=== PATIENT | female | born 1955 | race Caucasian/White ===

== ENCOUNTER → 2020-05-07 12:12 | Outpatient (CLI) | payer OTHER, SELFPAY ==
--- NOTE | ~2020-05-07 | DEXA_ITS ---
Bone Density Report Name: Aggie Archer Age: 64 Sex: Female Ethnicity: White Date of : 1955 Indication: postmenopausal; screening for osteoporosis; parental hip fracture; height loss; Referring Provider: MARE, AMANDA Caro Study: Bone densitometry was performed. Exam Date: May 07, 2020 Accession number: [id number] Bone Density: Region BMD T-score Z-score Classification AP Spine (L1-L4) 0.934 -1.0 0.8 Normal Femoral Neck (Left) 0.673 -1.6 0.0 Osteopenia Total Hip (Left) 0.770 -1.4 -0.1 Osteopenia Femoral Neck (Right) 0.747 -0.9 0.7 Normal Total Hip (Right) 0.862 -0.7 0.7 Normal Total Hip Mean 0.816 -1.1 0.3 Osteopenia World Health Organization criteria for BMD impression classify patients as: Normal (T-score at or above -1.0), Osteopenia (T-score between -1.0 and -2.5), or Osteoporosis (T-score at or below -2.5). 10-year Fracture Risk(1): Major Osteoporotic Fracture 14% Hip Fracture 1.3% Reported Risk Factors: [place] (), Neck BMD=0.673, BMI=19.3, parental fracture (1) FRAX(R) Version 3.08. Fracture probability calculated for an untreated patient. Fracture probability may be lower if the patient has received treatment. Clinical Information Provided by Patient: Parent has had a hip fracture Has used the following medications: Vitamin D, Calcium Patient maximum height was 67 Menopause Age: 53 Drinks caffeinated beverages Onset of menses at age 10 Number of children 2 Impression: The patient has low bone mass, based on the Left Femoral Neck T-score. The patient has an estimated ten-year risk of hip fracture of 1.3% and an estimated ten-year risk of major fracture of 14%, based on the WHO FRAX algorithm. The patient has risk factors, including: parental hip fracture. Discussion: BONE DENSITY IS LOW AT ONE OR MORE SKELETAL SITES. This patient's lowest T-score is low at one or more skeletal sites. It meets the World Health Organization's (WHO) criteria for ?low bone mass? (T-score between -1.0 and -2.5). The patient's 10-year risk of fracture as calculated by FRAX is less than the threshold where pharmacological therapy is recommended by the National Osteoporosis Foundation (NOF). However, all treatment decisions require clinical judgment and consideration of individual patient factors, including patient preferences, comorbidities, previous drug use, risk factors not captured in the FRAX model (e.g., frailty, falls, vitamin D deficiency, increased bone turnover, interval significant decline in bone density) and possible under or overestimation of fracture risk by FRAX. The patient should follow a healthful lifestyle (good nutrition with adequate calcium and vitamin D, and appropriate weight-bearing exercise). Follow-Up: Consider repeating this study in 2 to 3 years to reassess
== END ==
PROVIDERS: PCP Family Medicine; Visit Provider Family Medicine
DX: Z78.0 Asymptomatic menopausal state (principal); M85.852 Other specified disorders of bone density and structure, left thigh; M85.851 Other specified disorders of bone density and structure, right thigh
CPT/HCPCS: 77080

== ENCOUNTER → 2020-09-27 12:22 | Outpatient (CLI) | payer MEDICARE, SELFPAY ==
--- NOTE | ~2020-09-27 | MM_ITS ---
EXAMINATION: MM screening kristy BI w nupur HISTORY: Screening TECHNIQUE: Craniocaudal and mediolateral oblique 3-D tomosynthesis images were obtained and synthetic 2-D images were generated. CAD analysis was submitted and interpreted. COMPARISON: No prior mammogram is available for comparison at this institution. BREAST PARENCHYMAL COMPOSITION: The breasts are extremely dense, which lowers the sensitivity of mamm ography. FINDINGS: There is no evidence of suspicious mass, calcification, or architectural distortion to sugg est malignancy in either breast. There has been no suspicious interval change. IMPRESSION: 1. No mammographic evidence of malignancy. 2. Recommend routine screening mammography in one year. BI-RADS Category 1: Negative Reviewed, dictated and finalized at location A. IC SOURCER
== END ==
PROVIDERS: PCP Family Medicine; Visit Provider Family Medicine
DX: Z12.31 Encounter for screening mammogram for malignant neoplasm of breast (principal)
CPT/HCPCS: 77063; 77067

== ENCOUNTER → 2021-09-30 11:22 | Outpatient (CLI) | payer MEDICARE, SELFPAY ==
--- NOTE | ~2021-09-30 | MM_ITS ---
EXAMINATION: MM screening kristy BI w nupur HISTORY: Screening mammogram TECHNIQUE: Craniocaudal and mediolateral oblique 3-D tomosynthesis images were obtained and synthetic 2-D images were generated. CAD analysis was submitted and interpreted. COMPARISON: 09/27/2020 BREAST PARENCHYMAL COMPOSITION: The breasts are extremely dense, which lowers the sensitivity of mamm ography. FINDINGS: There is no evidence of suspicious mass, calcification, or architectural distortion to sugg est malignancy in either breast. There has been no suspicious interval change. IMPRESSION: 1. No mammographic evidence of malignancy. 2. Recommend routine screening mammography in one year. BI-RADS Category 1: Negative Reviewed, dictated and finalized at location A. SMITH APPRENTICE
== END ==
PROVIDERS: PCP Family Medicine; Visit Provider Family Medicine
DX: Z12.31 Encounter for screening mammogram for malignant neoplasm of breast (principal)
CPT/HCPCS: 77063; 77067

== ENCOUNTER → 2022-12-16 13:28 | Outpatient (CLI) | payer MEDICARE, SELFPAY ==
--- NOTE | ~2022-12-16 | MM_ITS ---
EXAMINATION: MM screening kristy BI w nupur HISTORY: Screening mammogram TECHNIQUE: Craniocaudal and mediolateral oblique 3-D tomosynthesis images were obtained and synthetic 2-D images were generated. CAD analysis was submitted and interpreted. COMPARISON: 10/17/2021, 09/27/2020 bilateral screening mammogram examinations BREAST PARENCHYMAL COMPOSITION: The breasts are extremely dense, which lowers the sensitivity of mamm ography. FINDINGS: Multiple microcalcifications are noted in the posterior upper left breast on MLO view. Diag nostic left mammogram with magnification views is recommended. Suggestion of multiple bilateral breast masses. The extremely dense tissue limits evaluation for mass es. Bilateral complete breast ultrasound examination is recommended. IMPRESSION: 1. Multiple bilateral breast masses are suggested. Microcalcifications in the posterior upper left br east on MLO view. 2. Diagnostic left mammogram with magnification views and bilateral complete breast ultrasound examin ation are recommended BI-RADS Category 0: Incomplete: Needs additional imaging evaluation. Reviewed, dictated and finalized at location A. MING COACH IMPRESSION: 1. Multiple bilateral breast masses are suggested. Microcalcifications in the p osterior upper left breast on MLO view. 2. Diagnostic left mammogram with magnification views and bilateral complete br east ultrasound examination are recommended BI-RADS Category 0: Incomplete: Needs additional imaging evaluation.
== END ==
PROVIDERS: PCP Family Medicine; Visit Provider Family Medicine
DX: Z12.31 Encounter for screening mammogram for malignant neoplasm of breast (principal); R92.8 Other abnormal and inconclusive findings on diagnostic imaging of breast
CPT/HCPCS: 77063; 77067

== ENCOUNTER → 2023-02-12 08:42 | Outpatient (CLI) | payer MEDICARE, SELFPAY ==
--- NOTE | ~2023-02-12 | MMUS_ITS ---
EXAMINATION: MM diagnostic kristy LT w nupur, US breast BI complete HISTORY: Multiple bilateral breast masses suggested on December 16, 2022 screening mammogram, in mark tion to microcalcifications in the posterior upper left breast on MLO view TECHNIQUE: Additional 3-D tomosynthesis images of the left breast were performed and synthetic 2-D im ages were generated. Magnification views of left breast CAD analysis was submitted and interpreted. H igh resolution breast ultrasound was performed. COMPARISON: None FINDINGS: MAMMOGRAPHIC FINDINGS: There are suspicious pleomorphic grouped microcalcifications including suspicious linear microcalcifi cations in the posterior upper outer quadrant. Stereotactic biopsy is recommended. ULTRASOUND: There is dense tissue throughout both breasts. No suspicious mass or shadowing is detected in either breast. IMPRESSION: 1. Suspicious pleomorphic grouped microcalcifications in the posterior upper outer quadrant 2. Stereotactic biopsy of posterior upper outer quadrant left breast microcalcifications is recommend ed BI-RADS category 4, suspicious findings. Reviewed, dictated and finalized at location A. IMPRESSION: 1. Suspicious pleomorphic grouped microcalcifications in the posterior upper ou ter quadrant 2. Stereotactic biopsy of posterior upper outer quadrant left breast microcalci fications is recommended BI-RADS category 4, suspicious findings.
== END ==
PROVIDERS: PCP Family Medicine; Visit Provider Family Medicine
DX: R92.8 Other abnormal and inconclusive findings on diagnostic imaging of breast (principal)
CPT/HCPCS: 76641; 77061; 77065; G0279

== ENCOUNTER 2023-04-02 12:33 | Outpatient (CLI) | payer MEDICARE, SELFPAY ==
--- NOTE | ~2023-04-02 | MM_ITS ---
EXAMINATION: MM_[id number]_MG INDICATION: Indeterminate left breast calcifications in the axillary tail of the breast in the area d ifficult to biopsy. TECHNIQUE: The procedure for a ultrasound-guided Magseed localization was discussed with the patient. Risks discussed included bleeding and infection. The patient verbalized understanding and agreed to proceed. A time out was performed to verify the patient's name, date of , and site of procedure. The edgardo ent was placed in craniocaudal compression, and the skin overlying the left breast was prepared in us ual fashion. The skin and subcutaneous soft tissues were infiltrated with 1% lidocaine for local anes thesia. Utilizing mammography guidance, a needle was advanced into the left breast. Two confirmatory films were obtained. The patient tolerated procedure without immediate complication. FINDINGS: Ultrasound and mammographic images demonstrate deployment of the Magseed device immediately posterior to indeterminate calcifications. IMPRESSION: 1. Successful ultrasound-guided left breast Magseed localization. Reviewed, dictated and finalized at location A.
--- NOTE | ~2023-04-02 | US_ITS ---
EXAMINATION: Consultation US HISTORY: Indeterminate left breast calcifications. Ultrasound is performed to assess for possible bio psy target given their location in the axillary tail. TECHNIQUE: Limited left breast ultrasound is performed. FINDINGS: No sonographic correlate is identified for the indeterminate left breast calcifications see n at mammography. IMPRESSION: No specific sonographic correlate is identified for the finding in question on recent mammogram. Biop sy remains indicated. BI-RADS category 4, suspicious findings. Reviewed, dictated and finalized at location A. IMPRESSION: No specific sonographic correlate is identified for the finding in question on recent mammogram. Biopsy remains indicated. BI-RADS category 4, suspicious findings.
== END 2023-04-02 12:34 | disposition home or self-care (01) ==
PROVIDERS: PCP Family Medicine; Visit Provider Surgery
DX: R92.0 Mammographic microcalcification found on diagnostic imaging of breast (principal); R92.8 Other abnormal and inconclusive findings on diagnostic imaging of breast
CPT/HCPCS: 19281; 99199; A4648

== ENCOUNTER → 2023-04-09 13:17 | Outpatient (CLI) | payer MEDICARE, SELFPAY ==
--- NOTE | ~2023-04-09 | DEXA_ITS ---
Bone Density Report Name: VIMAL MAYER I Age: 67 Sex: Female Ethnicity: White Date of : 1955 Indication: osteopenia; parental hip fracture; height loss; postmenopausal Referring Provider: MARE, AMANDA Caro Study: Bone densitometry was performed. Exam Date: April 09, 2023 Accession number: [id number] Bone Density: Region BMD T-score Z-score Classification AP Spine (L1-L4) 0.991 -0.5 1.6 Normal Femoral Neck (Left) 0.664 -1.7 0.1 Osteopenia Total Hip (Left) 0.760 -1.5 0.0 Osteopenia Femoral Neck (Right) 0.719 -1.2 0.6 Osteopenia Total Hip (Right) 0.866 -0.6 0.9 Normal Total Hip Mean 0.813 -1.1 0.5 Osteopenia World Health Organization criteria for BMD impression classify patients as: Normal (T-score at or above -1.0), Osteopenia (T-score between -1.0 and -2.5), or Osteoporosis (T-score at or below -2.5). 10-year Fracture Risk(1): Major Osteoporotic Fracture 14% Hip Fracture 2.8% Reported Risk Factors: [place] (), Neck BMD=0.664, BMI=19.8, parental fracture (1) FRAX(R) Version 3.08. Fracture probability calculated for an untreated patient. Fracture probability may be lower if the patient has received treatment. Previous Exams: Region Exam Age BMD T-score BMD Change BMD Change Date g/cm2 vs Baseline vs Previous AP Spine(L1-L4) 04/09/2023 67 0.991 -0.5 0.057* 0.057* 05/07/2020 64 0.934 -1.0 Total Hip(Left) 04/09/2023 67 0.760 -1.5 -0.010 -0.010 05/07/2020 64 0.770 -1.4 Total Hip(Right) 04/09/2023 67 0.866 -0.6 0.005 0.005 05/07/2020 64 0.862 -0.7 *Denotes significance at 95% confidence level, LSC for AP Spine = 0.022 g/cm2, LSC for Total Hip = 0.027 g/cm2 Clinical Information Provided by Patient: Parent has had a hip fracture Has used the following medications: Vitamin D, Calcium Patient maximum height was 67 Menopause Age: 53 Drinks caffeinated beverages Onset of menses at age 10 Number of children 2 Impression: The patient has low bone mass, based on the Left Femoral Neck T-score. The patient has an estimated ten-year risk of hip fracture of 2.8% and an estimated ten-year risk of major fracture of 14%, based on the WHO FRAX algorithm. The patient has risk factors, including: parental hip fracture. No significant bone loss was observed. Discussion: BONE DENSITY IS LOW AT ONE OR MORE SKELETAL SITES. This patient's lowest T-score is low at one or m
== END ==
PROVIDERS: PCP Family Medicine; Visit Provider Family Medicine
DX: Z78.0 Asymptomatic menopausal state (principal); M85.852 Other specified disorders of bone density and structure, left thigh; M85.851 Other specified disorders of bone density and structure, right thigh
CPT/HCPCS: 77080

== ENCOUNTER 2023-05-14 01:17 | Day surgery (SDC) | payer MEDICARE, SELFPAY ==
[2023-05-06 15:54] VITALS: BMI 19.4
--- NOTE | 2023-05-06 15:57 | PC.NURSE ---
Report to the Outpatient Waiting Room, entrance under the green pavilion located off [facility], at time ___1000____ on date ___05/14/23____. Planned Procedure Time: __1200 . Time changes happen often and if your time is changed the preop area will call you the afternoon before. - You and your visitor will be asked to self-screen and do not enter if you have any COVID symptoms. - A mask is optional within the hospital at this time. Patients may have clear liquids (water, carbonated beverages, clear teas, apple juice) until 3 hours prior to surgery (0900 AM) with a maximum of 20 ounces. - No food from midnight until time of surgery - Infants may have breast milk until 4 hours before surgery, formula 6 hours prior to surgery. - Children will be allowed to drink immediately following surgery. If applicable, please bring a bottle or sippy cup to assist with drinking. Juice, water, soda, and popsicles are readily available. For infants on formula, please bring formula the day of surgery. Pacifiers are allowed. Take the following medications with a SIP of water the morning of surgery: N/A DO NOT STOP ANY OF YOUR OTHER PRESCRIPTION MEDICATIONS PRIOR TO SURGERY ?EXCEPT THE FOLLOWING Medications to discontinue per ANESTHESIA - _MULTIVITAMIN & SUPPLEMENTS 3 DAYS PRIOR TO SURGERY Date to take last dose 05/10/23 Please no make-up, nail yakut, hairspray, perfume, deodorant, or body powder the day of surgery. No jewelry (including any body piercings) or valuables the day of surgery, leave them at home. Please take a shower or bath the night before, or the morning of, surgery with an antibacterial soap. Wear comfortable, loose fitting clothing. Children are encouraged to wear pajamas. - Jewelry must be removed prior to entering the operating room. Rings and piercings that are not removed may be cut off. - The hospital will not accept responsibility for valuables. - Please leave all valuables, including medications, at home the day of surgery. If you are going home after surgery, a licensed driver starting gate must drive you home. - NO public transportation without another adult if you receive anesthesia. - We recommend that an adult stay with you for 24 hours following discharge. - We also recommend that you do not drive, make important decision, drink alcoholic beverages, or take any drugs that were not prescribed by your health care provider for at least 24 hours after your discharge time. For Pediatric surgeries, we recommend two adults accompany the child home. Follow any additional instructions given to you from your surgeon. If you or anyone in your household have experienced Covid symptoms in the past week, please notify your surgeon or the nurse liaison at the phone number below for possible testing. Telephone instructions given to __PT and asked if any additional questions and then verbalized understanding. Patient advised to call surgeon office or pre surgery nurse liaison [phone] if any additional questions.
[2023-05-14] VITALS (9 sets, daily range): BP systolic 81–129; BP diastolic 49–84; PULSE 58–77; RESP 10–20; TEMP 36.3–37.1; O2SAT 100
[2023-05-14] MEDS: ACETAMINOPHEN 500 MG TABLET 1000 MG PO (10:22)
[2023-05-14] MEDS: LACTATED RINGERS 1,000 ML 30 ML IV CONT ×2 (10:25→13:24)
--- NOTE | 2023-05-14 11:49 | PM.IMHP ---
H&P: HPI History of Present Illness Date/Time: 05/14/23 11:49 Chief Complaint: 67 y/o female with L breast calcifications here for excisional biopsy. no interval changes in medical history per pt. no new ROS symptoms per pt. Review of Systems Constitutional: Constitutional: Reports no additional constitutional complaints Eyes: Eyes: Reports no additional eye complaints ENT: Reports Normal hearing present Cardiovascular: Cardiovascular: Reports no additional cardiovascular complaints Respiratory: Respiratory: Reports no additional respiratory complaints Gastrointestinal: Gastrointestinal: Reports no additional gastrointestinal complaints Genitourinary: Genitourinary: Reports no additional female genitourinary complaints Musculoskeletal: Musculoskeletal: Reports no additional musculoskeletal complaints Integumentary/Breasts: Skin/Breast: Reports as per HPI Neurologic: Reports system reviewed and no additional complaints, except as documented PMFSH Surgical History Surgical History History of bladder surgery bladder tie up History of tubal ligation Hx of dilation and curettage Family History Family History Sibling Alcoholism Mother Hypertension Social History Social History Smoking status: Never smoker Second hand tobacco smoke exposure: No Alcohol intake: current Alcohol use details: 2/MONTH Substance use: never Substance use type: does not use Lack of Transportation: No Lack of Food: Never True Current Housing: I Have Housing Concerned About Future Housing: No Difficulty Paying Gas/Electric Bills: No Difficulty Paying for Meds: No Currently Unemployed: No Education: Master's Degree or Higher Difficulty w/ Childcare or Family Care: No Living arrangements: with family Spiritual care concerns: No Meds Home Medications and Allergies Home Medications Medication Instructions Recorded Confirmed Type antiarthritic combination no.2 900 900 mg PO DAILY 03/17/23 05/14/23 History mg tablet (glucosamine-chondroitin) calcium carbonate 600 mg-vitamin 1 cap PO DAILY 03/17/23 05/14/23 History D3 10 mcg (400 unit) capsule cinnamon bark 500 mg capsule 500 mg PO DAILY 03/17/23 05/14/23 History (Cinnamon) estrella root extract 15 mg chewable 15 mg PO DAILY 03/17/23 05/14/23 History tablet magnesium 1 tablet PO DAILY 03/17/23 05/14/23 History multivitamin (Daily Multi-Vitamin 1 tablet PO DAILY 03/17/23 05/14/23 History tablet) omega 3-okm-wup-fish oil 60 mg-90 1 cap PO DAILY 03/17/23 05/14/23 History mg-500 mg capsule (Fish Oil) turmeric 400 mg capsule 400 mg PO DAILY 03/17/23 05/14/23 History vitamin B complex (B 1 tablet PO DAILY 03/17/23 05/14/23 History Complex-Vitamin B12 tablet) Allergies Allergy/AdvReac Type Severity Reaction Status Date / Time No Known Allergies Allergy Verified 05/14/23 10:17 Vital Signs Vital Signs - 24 hr 05/14/23 10:08 Temperature 37.1 C Pulse Rate 77 Respiratory Rate 20 Blood Pressure 113/84 Pulse Oximetry 100 Oxygen Delivery Room Air Exam Const: General: comfortable and no acute distress HENMT: Mouth: Yes moist mucous membranes Eyes: Sclera: sclerae normal Pupils: Equal, round and reactive pupils present Neck: Neck: supple Resp: Effort & Inspection: normal respiratory effort Cardio: Rate: regular rate Rhythm: regular rhythm Skin: General skin exam: normal color Assessment and Plan Assessment and plan (1) Abnormal mammogram of left breast: Code(s): R92.8 - Other abnormal and inconclusive findings on diagnostic imaging of breast Status: Acute Plan 67 y/o female with L breast calcifications here for excisional biopsy
--- NOTE | 2023-05-14 11:50 | WPDANESEPPF ---
Anes - Initial Pre Proc Eval Procedure: Operation Date: 05/14/23 12:00 Proposed Procedures p Excisional Biopsy Left Breast Microcalcificactions - Tessa Mello MD Date/Time: 05/14/23 11:50 Surgeon: Tessa Mello MD Pre Op Diagnosis: lft breast abnormal inconclusive findings Patient Data Age: 67 Gender: F Height: 1.68 m Weight: 54.45 kg Last Vital Signs Temp 98.7 F 05/14/23 10:08 Pulse 77 05/14/23 10:08 Resp 20 05/14/23 10:08 BP 113/84 05/14/23 10:08 Pulse Ox 100 05/14/23 10:08 O2 Del Method Room Air 05/14/23 10:08 Allergies Allergy/AdvReac Type Severity Reaction Status Date / Time No Known Allergies Allergy Verified 05/14/23 10:17 Home Medications Medication Instructions Recorded Confirmed Type antiarthritic combination no.2 900 900 mg PO DAILY 03/17/23 05/14/23 History mg tablet (glucosamine-chondroitin) calcium carbonate 600 mg-vitamin 1 cap PO DAILY 03/17/23 05/14/23 History D3 10 mcg (400 unit) capsule cinnamon bark 500 mg capsule 500 mg PO DAILY 03/17/23 05/14/23 History (Cinnamon) estrella root extract 15 mg chewable 15 mg PO DAILY 03/17/23 05/14/23 History tablet magnesium 1 tablet PO DAILY 03/17/23 05/14/23 History multivitamin (Daily Multi-Vitamin 1 tablet PO DAILY 03/17/23 05/14/23 History tablet) omega 4-xsq-pjk-fish oil 60 mg-90 1 cap PO DAILY 03/17/23 05/14/23 History mg-500 mg capsule (Fish Oil) turmeric 400 mg capsule 400 mg PO DAILY 03/17/23 05/14/23 History vitamin B complex (B 1 tablet PO DAILY 03/17/23 05/14/23 History Complex-Vitamin B12 tablet) Patient hx anesthesia problems: none Family hx anesthesia problems: none Results Review: All pre-operative results and documents have been reviewed as part of the pre-operative evaluation. [facility] Surgical History Surgical History (Updated 03/17/23 @ 08:35 by Batsheva Chavez, [facility]) History of bladder surgery bladder tie up History of tubal ligation Hx of dilation and curettage Family History Family History (Updated 03/17/23 @ 08:38 by Batsheva Chavez CMA) Sibling Alcoholism Mother Hypertension Social History Social History (Updated 03/17/23 @ 08:43 by Batsheva Chavez CMA) Smoking status: Never smoker Second hand tobacco smoke exposure: No Alcohol intake: current Alcohol use details: 2/MONTH Substance use: never Substance use type: does not use Lack of Transportation: No Lack of Food: Never True Current Housing: I Have Housing Concerned About Future Housing: No Difficulty Paying Gas/Electric Bills: No Difficulty Paying for Meds: No Currently Unemployed: No Education: Master's Degree or Higher Difficulty w/ Childcare or Family Care: No Living arrangements: with family Spiritual care concerns: No Anes - Eval Final PreProcedure Day of Procedure 05/14/23 11:50 Patient weight: normal Heart: regular rate and rhythm Lungs: clear to auscultation Airway: Mallampati scale class II Neurological: alert and oriented Last oral intake: >/= 8 hours ASA classification: II Emergent: no Anesthetic plan: proceed Anesthesia type and monitoring: general GIVS and standard monitoring Results Review: All pre-operative results and documents have been reviewed as part of the pre-operative evaluation. Informed Consent: The patient's anesthetic plan and its attendant risks and benefits were discussed with the patient/family/POA. Questions were solicited and answers provided to the satisfaction of the patient/family/POA.
--- NOTE | 2023-05-14 13:15 | P.OP_ITS ---
Procedure Note - Detailed Date of Procedure 05/14/23 Pre-op Diagnosis Left breast microcalcifications in left axillary tail, not amenable to stereotactic biopsy due to location of microcalcifications Post-op Diagnosis Same Procedure Performed Excisional biopsy of left breast axillary tail microcalcifications with Mag seed localization. Injection of Magtracer for possible sentinel lymph node biopsy in the future. Surgeon Tessa Mello MD Printed Circuit Board Layout Designer Fernanda Cm PA-C Anesthesia General Indications 67-year-old female who was found to have suspicious microcalcifications in the left axillary tail of the breast. Stereotactic biopsy was attempted but due to position of the microcalcifications, was not feasible. She was recommended for excisional biopsy of this area using Mag seed localization. Risks of procedure were discussed with the patient which included but not limited to risk of bleeding, infection, possible need for additional procedures in the future, asymmetry, wound healing problems, pain, as well as the risk of anesthesia. All questions were answered patient agrees to proceed. Decision was also made to proceed with MAC tracer injection prior to excisional biopsy given the position of the microcalcifications in the axillary tail that we would once excise disrupt the lymphatic drainage of the breast. Findings Faxitron images were obtained which showed Mag seed at the center of the specimen as well as the microcalcifications within the specimen. Description of Procedure The patient was identified in the preoperative holding area brought to the operating room suite. She was laid supine on the operating table sequential compression devices were applied. Anesthesia was induced without difficulty. The left chest was prepped and draped in a sterile fashion. The Sentimag probe was used to find Mag seed and this area was marked on the breast skin. Mag tracer (0.5cc) was injected into the subareolar plane and a vigorous massage was performed to allow uptake into the sentinel nodes. A small curvilinear incision was made in the upper lateral aspect of the breast at the area previously marked for the Mag seed and dissection was carried down through the subcutaneous tissue into the breast tissue. A small core of breast tissue was excised around the Mag seed and oriented using surgical paint according to building official instructions. The Faxitron was then used to obtain the radiographic image and confirmed the magseed to be at the center of the specimen as well as the microcalcifications observed within the specimen. The specimen was sent to pathology as a permanent specimen. The cavity was irrigated hemostasis is assured. The deep dermal layer was closed with interrupted 3-0 Vicryl and the skin was then closed with 4-0 Monocryl in a subcuticular fashion. Dermabond was applied followed by a sterile dressing and a surgical bra. Patient was awoken from anesthesia and taken to the recovery area in stable condition. All needles, instruments, and sponge counts were correct as reported by the operating room staff. Patient tolerated the procedure well with no immediate complications. Estimated Blood Loss 5 Drains No Pathology Yes Complications No immediate complications Condition Stable Disposition PACU [facility] Billing Surgery - Charge Forward: Surgery Billing
== END 2023-05-14 14:55 | disposition home or self-care (01) ==
PROVIDERS: PCP Family Medicine; Visit Provider Surgery
PROC: (CPT 19125; principal; 2023-05-14 12:00)
DX: C50.612 Malignant neoplasm of axillary tail of left female breast (principal); Z17.1 Estrogen receptor negative status [ER-]
CPT/HCPCS: 19125; 38792; 76098; 88307; 88342; 88360; A9270; C1713; J1100; J2250; J2405; J2704; J3010; J7120; Q9968

== ENCOUNTER 2023-05-29 10:23 | Outpatient (CLI) | payer MEDICARE, SELFPAY ==
--- NOTE | ~2023-05-29 | MR_ITS ---
EXAMINATION: MR breast BI wo/w con INDICATION: Malignant neoplasm of the left breast TECHNIQUE: Axial VIBRANT pre and dynamic post contrast, Sagittal VIBRANT post contrast, Axial T2 STIR ASSET COMPARISON: None CONTRAST: Multihance, 11 cc BREAST COMPOSITION: Extreme fibroglandular tissue FINDINGS: RIGHT BREAST: There is minimal background parenchymal enhancement. No abnormal enhancement is present after contrast administration. No pathologically enlarged axillary or internal mammary lymph nodes a re identified. LEFT BREAST: There is minimal background parenchymal enhancement. There is a 3.0 x 1.4 cm postoperati ve seroma in the left axilla. Artifact from Magtrace injected at the time of surgery causes significa nt signal loss in the left breast. The MRI is nondiagnostic for left breast pathology. IMPRESSION: 1. No MRI evidence of malignancy in the right breast. MRI nondiagnostic for left breast pathology due to artifact created by Magtrace, BI-RADS category 6, known, biopsy-proven malignancy. Reviewed, dictated and finalized at location B. IMPRESSION: 1. No MRI evidence of malignancy in the right breast. MRI nondiagnostic for lef t breast pathology due to artifact created by Magtrace, BI-RADS category 6, known, biopsy-proven malignancy.
== END 2023-05-29 10:24 | disposition home or self-care (01) ==
PROVIDERS: PCP Family Medicine; Visit Provider Physician Assistant Surgical
DX: C50.919 Malignant neoplasm of unspecified site of unspecified female breast (principal); R92.0 Mammographic microcalcification found on diagnostic imaging of breast
CPT/HCPCS: 77049; A9577; C8908

== ENCOUNTER 2023-07-07 13:25 | Outpatient (CLI) | payer MEDICARE, SELFPAY ==
[2023-07-07 14:03] LABS: Basophils Percent Auto 0.5 % (0.2-1.2); Eosinophils Percent Auto 0.2 % (0-4.4); Hematocrit 37.8 % (37.0-47.0); Hemoglobin 12.5 g/dL (12.0-15.0); Lymphocytes Absolute Auto 1.02 K/mm3 (0.9-3.2); Lymphocytes Percent Auto 24.7 % (18.3-44.2); Mean Corpuscular HGB Conc 33.1 g/dl (32-36); Mean Corpuscular Hemoglobin 30.9 pg (26-34); Mean Corpuscular Volume 93.6 fl (80-100); Mean Platelet Volume 11.1 fl (7.4-10.4); Monocytes Absolute Auto 0.4 K/mm3 (0.1-0.6); Monocytes Percent Auto 9.7 % (2.6-8.5); Neutrophils Absolute Auto 2.7 K/mm3 (1.3-6.7); Neutrophils Percent Auto 64.9 % (45.5-73.1); Platelet Count Result 189 k/mm3 (150-375); Red Blood Count 4.04 M/mm3 (4.2-5.4); White Blood Count 4.1 K/mm3 (4.5-10.0)
[2023-07-07 14:16] LABS: INR 0.9; Prothrombin Time 12.3 Seconds (11.1-14.7)
[2023-07-07 14:17] LABS: Partial Thromboplastin Time 24.6 SECONDS (22.3-36.8)
== END 2023-07-07 13:26 | disposition home or self-care (01) ==
LOC: ANHSURGERY 13:28
PROVIDERS: PCP Family Medicine; Visit Provider Surgery
DX: C50.912 Malignant neoplasm of unspecified site of left female breast (principal); Z01.818 Encounter for other preprocedural examination
CPT/HCPCS: 36415; 85025; 85610; 85730

== ENCOUNTER 2023-07-09 00:48 | Day surgery (SDC) | payer MEDICARE, SELFPAY ==
[2023-07-07 09:14] VITALS: BMI 19.5
--- NOTE | 2023-07-07 10:05 | PC.NURSE ---
Report to the Outpatient Waiting Room, entrance under the green pavilion located off [facility], at time __10:00AM on date ___07/09/23____. Planned Procedure Time: __12:00PM . Time changes happen often and if your time is changed the preop area will call you the afternoon before. - You and your visitor will be asked to self-screen and do not enter if you have any COVID symptoms. - A mask is optional within the hospital at this time. Patients may have clear liquids (water, carbonated beverages, clear teas, apple juice) until 3 hours prior to surgery with a maximum of 20 ounces. - No food from midnight until time of surgery. Take the following medications with a SIP of water the morning of surgery: ___NONE DO NOT STOP ANY OF YOUR OTHER PRESCRIPTION MEDICATIONS PRIOR TO SURGERY ?EXCEPT THE FOLLOWING Medications to discontinue per physician __HOLD ALL VITAMINS/SUPPLEMENTS 3 DAYS PRE-OP PER ANESTHESIA Date to take last dose____07/06/23 Please no make-up, nail syriac, hairspray, perfume, deodorant, or body powder the day of surgery. No jewelry (including any body piercings) or valuables the day of surgery, leave them at home. Please take a shower or bath the night before, or the morning of, surgery with an antibacterial soap. Wear comfortable, loose fitting clothing. Children are encouraged to wear pajamas. - Jewelry must be removed prior to entering the operating room. Rings and piercings that are not removed may be cut off. - The hospital will not accept responsibility for valuables. - Please leave all valuables, including medications, at home the day of surgery. If you are going home after surgery, a licensed oil transport driver must drive you home. - NO public transportation without another adult if you receive anesthesia. - We recommend that an adult stay with you for 24 hours following discharge. - We also recommend that you do not drive, make important decision, drink alcoholic beverages, or take any drugs that were not prescribed by your health care provider for at least 24 hours after your discharge time. Follow any additional instructions given to you from your surgeon. If you or anyone in your household have experienced Covid symptoms in the past week, please notify your surgeon or the nurse liaison at the phone number below for possible testing. Telephone instructions given to ___PATIENT and asked if any additional questions and then verbalized understanding. Patient advised to call surgeon office or pre surgery nurse liaison [phone] if any additional questions.
[2023-07-09] VITALS (9 sets, daily range): BP systolic 108–133; BP diastolic 60–78; PULSE 67–81; RESP 9–20; TEMP 36.2–36.9; O2SAT 96–100
--- NOTE | ~2023-07-09 | XR_ITS ---
EXAMINATION: XR chest port-a-cath/central INDICATION: Port-A-Cath insertion TECHNIQUE: Portable AP chest at 1444 hours COMPARISON: None available FINDINGS: A right internal jugular Port-A-Cath ends with its tip in the distal superior vena cava. No pleural effusion or pneumothorax. There is mild atelectasis of the lung bases. Subcutaneous gas in t he upper outer quadrant of the left breast and left axilla are consistent with change related to toda y's surgery. IMPRESSION: 1. Right internal jugular Port-A-Cath insertion. No pneumothorax. 2. Mild atelectasis of the lung bases. Reviewed, dictated and finalized at location L.
--- NOTE | ~2023-07-09 | XR_ITS ---
EXAMINATION: XR fl guide central line place INDICATION: Port-A-Cath insertion TECHNIQUE: Two intraoperative fluoroscopic images are submitted for review. Total fluoroscopic time w as 28.7 seconds. COMPARISON: None available FINDINGS: Fluoroscopic images demonstrate a right internal jugular Port-A-Cath with its tip ending in the superior vena cava. An endotracheal tube is noted. Please refer to procedure note for full detai ls. IMPRESSION: 1. Please refer to procedure note for full details. Reviewed, dictated and finalized at location L.
[2023-07-09] MEDS: ACETAMINOPHEN 500 MG TABLET 1000 MG PO (10:38)
--- NOTE | 2023-07-09 10:41 | WPDANESEPPF ---
Anes - Initial Pre Proc Eval Procedure: Operation Date: 07/09/23 12:00 Proposed Procedures p Left Axillary [place] Lymph Node Biopsy, Lymphoseek Injection - Tessa eMllo MD s Right Chest Julisa Cath Insertion - Tessa Mello MD Date/Time: 07/09/23 10:41 Surgeon: Tessa Mello MD Pre Op Diagnosis: malg. neop. of unspec site left female breast Patient Data Age: 67 Gender: F Height: 1.68 m Weight: 55 kg Allergies Allergy/AdvReac Type Severity Reaction Status Date / Time No Known Allergies Allergy Verified 07/09/23 10:22 Home Medications Medication Instructions Recorded Confirmed Type antiarthritic combination no.2 900 900 mg PO DAILY 03/17/23 07/07/23 History mg tablet (glucosamine-chondroitin) calcium carbonate 600 mg-vitamin 1 cap PO DAILY 03/17/23 07/07/23 History D3 10 mcg (400 unit) capsule cinnamon bark 500 mg capsule 500 mg PO DAILY 03/17/23 07/07/23 History (Cinnamon) estrella root extract 15 mg chewable 15 mg PO DAILY 03/17/23 07/07/23 History tablet magnesium 1 tablet PO DAILY 03/17/23 07/07/23 History multivitamin (Daily Multi-Vitamin 1 tablet PO DAILY 03/17/23 07/07/23 History tablet) omega 0-qjr-ulm-fish oil 60 mg-90 1 cap PO DAILY 03/17/23 07/07/23 History mg-500 mg capsule (Fish Oil) turmeric 400 mg capsule 400 mg PO DAILY 03/17/23 07/07/23 History vitamin B complex (B 1 tablet PO DAILY 03/17/23 07/07/23 History Complex-Vitamin B12 tablet) biotin 10,000 mcg chewable tablet 10,000 mcg PO DAILY 07/07/23 07/07/23 History (Hair, Skin and Nails (biotin)) potassium 99 mg tablet 99 mg PO DAILY 07/07/23 07/07/23 History Patient hx anesthesia problems: none Family hx anesthesia problems: none Results Review: All pre-operative results and documents have been reviewed as part of the pre-operative evaluation. [facility] History Surgical History History of bladder surgery bladder tie up History of tubal ligation Hx of dilation and curettage Family History Family History Sibling Alcoholism Mother Hypertension Social History Social History Smoking status: Never smoker Second hand tobacco smoke exposure: No Alcohol intake: current Alcohol use details: 2/MONTH Substance use: never Substance use type: does not use Lack of Transportation: No Lack of Food: Never True Current Housing: I Have Housing Concerned About Future Housing: No Difficulty Paying Gas/Electric Bills: No Difficulty Paying for Meds: No Currently Unemployed: No Education: Master's Degree or Higher Difficulty w/ Childcare or Family Care: No Living arrangements: with family Additional living arrangements comments: HUSB Spiritual care concerns: No Anes - Eval Final PreProcedure Day of Procedure 07/09/23 10:41 Patient weight: normal Heart: regular rate and rhythm Lungs: clear to auscultation Airway: Mallampati scale class II Neurological: alert and oriented Last oral intake: >/= 8 hours ASA classification: III Emergent: no Anesthetic plan: proceed Anesthesia type and monitoring: general ETT and standard monitoring Results Review: All pre-operative results and documents have been reviewed as part of the pre-operative evaluation. Informed Consent: The patient's anesthetic plan and its attendant risks and benefits were discussed with the patient/family/POA. Questions were solicited and answers provided to the satisfaction of the patient/family/POA.
[2023-07-09] MEDS: LACTATED RINGERS 1,000 ML 30 ML IV CONT ×2 (11:00→14:25)
--- NOTE | 2023-07-09 11:11 | WPDHPUPDATE1 ---
History and Physical Update Update Date/Time: 07/09/23 11:11 History and Physical has been reviewed, including an updated exam of the patient. There are NO changes in the patient's condition. Risks, benefits, and alternatives have been discussed and questions answered. Patient agrees to proceed with procedure.
[2023-07-09] MEDS: ceFAZolin 2 GM/D5W 50 ML 2 GM/50 ML BAG IVPB (12:00)
[2023-07-09] MEDS: BUPIVACAINE/EPINEPHRINE 0.5% 30 ML VIAL INFILTRATE (12:47)
[2023-07-09] MEDS: HEPARIN SODIUM, PORCINE 10,000 UNITS/10 ML VIAL 10000 UNITS XX (12:48)
[2023-07-09] MEDS: HEPARIN SODIUM 5,000 UNITS/ML VIAL 5000 UNITS IRRIGATION (12:49)
[2023-07-09] MEDS: METHYLENE BLUE 0.5% INJ 10 ML AMPULE IRRIGATION (12:52)
--- NOTE | 2023-07-09 14:12 | W.PM.PROC2 ---
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 Right internal jugular vein port placement 2. Attempted left axillary sentinel lymph node biopsy with lymphoseek radiotracer and methylene blue injection, but unable identify a level I or II sentinel lymph node. Procedure aborted. Surgeon Tessa Mello MD Medical Office Receptionist Assistant Fernanda Cm PA-C Anesthesia General Findings Right internal jugular vein port placed without difficulty. Port aspirated and flushed easily. Attempted left axillary sentinel lymph node biopsy using both lymphoseek radiotracer and diluted methylene blue, but unable to identify a node for biopsy. Radiotracer activity noted deep and medial to pectoralis muscle, and biopsy was aborted after unable to identify nodes in level I and II [place]. Description of Procedure Patient was identified in the preoperative holding area brought to the operating room sleep. She underwent lymphoseek injection in nuclear Medicine prior to presentation to surgery for sentinel lymph node biopsy. Patient was then brought to the operating room suite and laid supine in the OR table. Sequential compression devices were applied. General anesthesia was induced without difficulty. The right neck and upper chest was prepped and draped as well as the left chest an axillary incision in a sterile fashion. Attention was turned to the right neck. Ultrasound was used to identify the internal jugular vein and a small incision was made overlying this area. Local anesthetic was infiltrated in the subcutaneous tissue and a needle was then slowly advanced under ultrasound guidance into the lumen of the internal jugular vein. Once dark venous blood was aspirated the syringe was removed and a guidewire was introduced into the internal jugular vein. Fluoroscopy images were obtained to verify the position of the wire going down into the superior vena cava. Once this was confirmed a small pocket was made by making a small incision with a 15 blade in the right upper chest. Dissection was carried down through the subcutaneous tissue and a small pocket was created for the future port. Hemostasis was assured. I then proceed to tunnel the catheter from this pocket to the neck after injecting local anesthetic in the subcutaneous tissue of the neck. Fluoroscopy images were obtained to measure the length of the catheter with the tip at the cavoatrial junction. The catheter was then cut distally at approximately 27 cm and connected to port. The port was then flushed with saline. An introducer with the peel-away sheath was then introduced into internal jugular vein under fluoroscopy guidance using the previously placed wire. The wire was removed as well as the introducer leaving the peel-away sheath. The catheter was then introduced into the IJ via the peel-away sheath which was slowly removed. Once the catheter was in good position, I was able to aspirate dark venous blood and easily flushed the port using the blackman needle. A x-ray picture was taking to ensure there is no kinks throughout the catheter and the catheter tip was in good position at the superior aspect of the cavoatrial junction. Once this was performed the port was then secured to pectoralis fascia using interrupted silk sutures and placed into the subcutaneous pocket. The port was again aspirated and flushed with heparinized saline. The deep dermal layer was closed with interrupted Vicryl and the skin was closed with 4-0 Monocryl in a subcuticular fashion. The small incision in the neck was closed with a single interrupted Monocryl suture. Dermabond was applied to all the incisions. Attention was then turned to left axilla. The gamma probe was used to scan the axilla and an incision was made overlying the area of highest activity. Dissection was carried down through the subcutaneous tissue and the clavipe
== END 2023-07-09 16:19 | disposition home or self-care (01) ==
PROVIDERS: PCP Family Medicine; Visit Provider Surgery
PROC: (CPT 36561; principal; 2023-07-09 12:00)
PROC: (CPT 36561; 2023-07-09 12:00)
DX: C50.912 Malignant neoplasm of unspecified site of left female breast (principal); Z17.1 Estrogen receptor negative status [ER-]
CPT/HCPCS: 36561; 38525; 36415; 77001; 85025; 85610; 85730; A9270; J0330; J0690; J1100; J1170; J1644; J2250; J2371; J2405; J2704; J3010; J7030; J7120; Q9968

== ENCOUNTER → 2023-10-29 09:42 | Outpatient (CLI) | payer MEDICARE, SELFPAY ==
--- NOTE | ~2023-10-29 | MM_ITS ---
EXAMINATION: MM diagnostic kristy LT w nupur HISTORY: Patient with history of left breast cancer status post left lumpectomy TECHNIQUE: Craniocaudal, mediolateral, and mediolateral oblique 3-D tomosynthesis images of the left breast were performed and synthetic 2-D images were generated. CAD analysis was submitted and interpr eted. COMPARISON: 02/12/2023, 12/16/2022, 09/30/2021, 09/27/2020 BREAST PARENCHYMAL COMPOSITION: The breasts are heterogeneously dense, which may obscure small masses . FINDINGS: There are changes of interval lumpectomy in the far posterior third of the upper outer quad rant of the breast. No suspicious mass, calcification, or architectural distortion are identified. IMPRESSION: 1. Interval lumpectomy changes without mammographic evidence of malignancy. 2. Recommend routine screening mammography, due on the right next month. BI-RADS Category 2: Benign finding(s). Reviewed, dictated and finalized at location A. RACT MODELER
== END ==
PROVIDERS: PCP Internal Medicine Hematology & Oncology; Visit Provider Radiology Radiation Oncology
DX: C50.912 Malignant neoplasm of unspecified site of left female breast (principal); Z85.3 Personal history of malignant neoplasm of breast
CPT/HCPCS: 77061; 77065; G0279

== ENCOUNTER 2023-12-07 09:52 | Outpatient (CLI) | payer MEDICARE, SELFPAY ==
--- NOTE | ~2023-12-07 | MR_ITS ---
MR breast BI wo/w con 12/08/2023 08:27 DATABASES SOFTWARE CONSULTANT INDICATION: History of breast cancer. Mag Trace administration. TECHNIQUE: MRI of the breasts perform using standard protocol pre-and post IV contrast with the follo wing sequences: Axial T2 STIR, axial T1, axial vibrant T1 with fat suppression precontrast and multip hasic postcontrast. 10 cc MultiHance administered intravenously. COMPARISON: Mammogram dated 10/29/2023, MRI breast dated 05/29/2023, diagnostic mammogram and ultrasoun d dated 02/12/2023 and mammogram dated 12/16/2022 FINDINGS: There are no abnormalities on the precontrast sequences. There is artifact along the superi or margin of the right breast and in a large segment of the left breast, consistent with prior Mag Tr juliette administration. There is minimal background parenchymal enhancement. No enhancing lesions follow ing contrast administration. No areas of enhancement meeting threshold criteria on CAD analysis. No evidence of signal abnormalities in the axillary or internal mammary node distributions. LEFT BREAST: No signal abnormalities on precontrast sequences. There is minimal background parenchym al enhancement. No enhancing lesions following contrast administration. No areas of enhancement me eting threshold criteria on CAD analysis. No evidence of signal abnormalities in the axillary or in ternal mammary node distributions.] IMPRESSION: 1: No suspicious findings to suggest residual or recurrent malignancy. Study limited due to Mag Trace administration. BI-RADS category 6- Known biopsy proven malignancy: Appropriate action should be taken. Reviewed, dictated and finalized at location A. BASES SOFTWARE CONSULTANT IMPRESSION: 1: No suspicious findings to suggest residual or recurrent malignancy. Study li mited due to Mag Trace administration. BI-RADS category 6- Known biopsy proven malignancy: Appropriate action should b e taken.
== END 2023-12-07 09:53 | disposition home or self-care (01) ==
PROVIDERS: PCP Family Medicine; Visit Provider Physician Assistant Surgical
DX: C50.919 Malignant neoplasm of unspecified site of unspecified female breast (principal); R92.8 Other abnormal and inconclusive findings on diagnostic imaging of breast
CPT/HCPCS: 77049; A9577; C8908

== ENCOUNTER 2023-12-31 14:43 | Outpatient (CLI) | payer MEDICARE, SELFPAY ==
--- NOTE | ~2023-12-31 | MM_ITS ---
EXAMINATION: MM screening kristy RT w nupur HISTORY: Screening mammogram TECHNIQUE: Craniocaudal and mediolateral oblique 3-D tomosynthesis images were obtained and synthetic 2-D images were generated. CAD analysis was submitted and interpreted. COMPARISON: December 07, 2023 bilateral breast MRI examination 10/29/2023 diagnostic left mammogram 05/29/2023 bilateral breast MRI examination 02/12/2023 left diagnostic mammogram and bilateral breast ultrasound examination BREAST PARENCHYMAL COMPOSITION: The breasts are extremely dense, which lowers the sensitivity of mamm ography. FINDINGS: Port-A-Cath reservoir overlies the right axillary area. There is no evidence of suspicious mass, calcification, or architectural distortion to suggest malignancy in either breast. There has be en no suspicious interval change. IMPRESSION: 1. Status post left partial mastectomy for breast cancer No mammographic evidence of right breast mal ignancy. 2. Recommend routine screening mammography in one year. BI-RADS Category 1: Negative Reviewed, dictated and finalized at location A. IMPRESSION: 1. Status post left partial mastectomy for breast cancer No mammographic eviden ce of right breast malignancy. 2. Recommend routine screening mammography in one year. BI-RADS Category 1: Negative
== END 2023-12-31 14:44 ==
LOC: MICIMG 14:44
PROVIDERS: PCP Surgery; Visit Provider Family Medicine
DX: Z12.31 Encounter for screening mammogram for malignant neoplasm of breast (principal)
CPT/HCPCS: 77063; 77067

== ENCOUNTER 2024-01-20 00:44 | Day surgery (SDC) | payer MEDICARE, SELFPAY ==
--- NOTE | 2024-01-11 14:39 | PC.NURSE ---
Report to the Outpatient Waiting Room, entrance under the green pavilion located off [facility], at time __0700 on date _01/20/24 . Planned Procedure Time: __0900 . Time changes happen often and if your time is changed the preop area will call you the afternoon before. - You and your visitor will be asked to self-screen and do not enter if you have any COVID symptoms. - A mask is optional within the hospital at this time. Patients may have clear liquids (water, carbonated beverages, clear teas, apple juice) until 3 hours prior to surgery( 6 :00 AM) with a maximum of 20 ounces. - No food from midnight until time of surgery - Infants may have breast milk until 4 hours before surgery, formula 6 hours prior to surgery. - Children will be allowed to drink immediately following surgery. If applicable, please bring a bottle or sippy cup to assist with drinking. Juice, water, soda, and popsicles are readily available. For infants on formula, please bring formula the day of surgery. Pacifiers are allowed. Take the following medications with a SIP of water the morning of surgery: __NONE DO NOT STOP ANY OF YOUR OTHER PRESCRIPTION MEDICATIONS PRIOR TO SURGERY ?EXCEPT THE FOLLOWING Medications to discontinue per physician HOLD ALL VITAMINS AND SUPPLEMENTS 3 DAYS PRE OP . LAST DOSE 01/16/24 Please no make-up, nail anguillan, hairspray, perfume, deodorant, or body powder the day of surgery. No jewelry (including any body piercings) or valuables the day of surgery, leave them at home. Please take a shower or bath the night before, or the morning of, surgery with an antibacterial soap. Wear comfortable, loose fitting clothing. Children are encouraged to wear pajamas. - Jewelry must be removed prior to entering the operating room. Rings and piercings that are not removed may be cut off. - The hospital will not accept responsibility for valuables. - Please leave all valuables, including medications, at home the day of surgery. If you are going home after surgery, a licensed tractor driver teamster must drive you home. - NO public transportation without another adult if you receive anesthesia. - We recommend that an adult stay with you for 24 hours following discharge. - We also recommend that you do not drive, make important decision, drink alcoholic beverages, or take any drugs that were not prescribed by your health care provider for at least 24 hours after your discharge time. Follow any additional instructions given to you from your surgeon. If you or anyone in your household have experienced Covid symptoms in the past week, please notify your surgeon or the nurse liaison at the phone number below for possible testing. Telephone instructions given to __PATIENT and asked if any additional questions and then verbalized understanding. Patient advised to call surgeon office or pre surgery nurse liaison [phone] if any additional questions.
[2024-01-11 14:50] VITALS: BMI 19.3
--- NOTE | 2024-01-19 14:29 | WPDANESEPPF ---
Anes - Initial Pre Proc Eval Procedure: Operation Date: 01/20/24 09:00 Proposed Procedures p Removal Right Internal Jugular Port - Tessa Mello MD Date/Time: 01/19/24 14:29 Surgeon: Tessa Mello MD Pre Op Diagnosis: Breast Cancer Patient Data Age: 68 Gender: F Height: 1.68 m Weight: 54.45 kg Allergies Allergy/AdvReac Type Severity Reaction Status Date / Time No Known Allergies Allergy Verified 01/20/24 07:44 Home Medications Medication Instructions Recorded Confirmed Type antiarthritic combination no.2 900 900 mg PO DAILY 03/17/23 01/15/24 History mg tablet (glucosamine-chondroitin) calcium carbonate 600 mg-vitamin 1 cap PO DAILY 03/17/23 01/15/24 History D3 10 mcg (400 unit) capsule cinnamon bark 500 mg capsule 1,000 mg PO DAILY 03/17/23 01/15/24 History (Cinnamon) estrella root extract 15 mg chewable 15 mg PO DAILY 03/17/23 01/15/24 History tablet magnesium 1 tablet PO DAILY 03/17/23 01/15/24 History multivitamin (Daily Multi-Vitamin 1 tablet PO DAILY 03/17/23 01/15/24 History tablet) omega 5-ffy-nhh-fish oil 60 mg-90 1 cap PO DAILY 03/17/23 01/15/24 History mg-500 mg capsule (Fish Oil) turmeric 400 mg capsule 400 mg PO DAILY 03/17/23 01/15/24 History biotin 10,000 mcg chewable tablet 10,000 mcg PO DAILY 07/07/23 01/15/24 History (Hair, Skin and Nails (biotin)) potassium 99 mg tablet 99 mg PO DAILY 07/07/23 01/15/24 History ascorbic acid (vitamin C) 1,000 mg 1 g PO DAILY 01/11/24 01/11/24 History tablet cyanocobalamin (vitamin B-12) 1,000 mcg PO DAILY 01/11/24 01/15/24 History 1,000 mcg tablet tramadol 50 mg tablet 50 mg PO Q6H PRN pain #8 tabs 01/20/24 Rx Patient hx anesthesia problems: none Family hx anesthesia problems: none Results Review: All pre-operative results and documents have been reviewed as part of the pre-operative evaluation. [facility] Surgical History Surgical History History of bladder surgery bladder tie up History of tubal ligation Hx of dilation and curettage Family History Family History Sibling Alcoholism Mother Hypertension Social History Social History Smoking status: Never smoker Second hand tobacco smoke exposure: No Alcohol intake: current Alcohol use details: ONE DRINK PER MONTH Substance use: never Substance use type: does not use Lack of Transportation: No Lack of Food: Never True Current Housing: I Have Housing Concerned About Future Housing: No Difficulty Paying Gas/Electric Bills: No Difficulty Paying for Meds: No Currently Unemployed: No Education: Master's Degree or Higher Difficulty w/ Childcare or Family Care: No Living arrangements: with family Additional living arrangements comments: HUSB Spiritual care concerns: No Anes - Eval Final PreProcedure Day of Procedure 01/19/24 14:29 Patient weight: normal Heart: regular rate and rhythm Lungs: clear to auscultation and normal air movement Airway: Mallampati scale class II Neurological: alert and oriented Last oral intake: >/= 8 hours ASA classification: III Emergent: no Anesthetic plan: proceed Anesthesia type and monitoring: general GIVS and standard monitoring Results Review: All pre-operative results and documents have been reviewed as part of the pre-operative evaluation. Informed Consent: The patient's anesthetic plan and its attendant risks and benefits were discussed with the patient/family/POA. Questions were solicited and answers provided to the satisfaction of the patient/family/POA.
--- NOTE | 2024-01-20 07:06 | WPDHPUPDATE1 ---
History and Physical Update Update Date/Time: 01/20/24 07:06 History and Physical has been reviewed, including an updated exam of the patient. There are NO changes in the patient's condition. Risks, benefits, and alternatives have been discussed and questions answered. Patient agrees to proceed with procedure.
[2024-01-20 07:51] VITALS: BP 104/45; PULSE 58; RESP 18; TEMP 36.1; O2SAT 100; BMI 18.5
[2024-01-20] MEDS: LACTATED RINGERS 1,000 ML 30 ML IV CONT (09:20)
[2024-01-20] MEDS: ceFAZolin 2 GM/D5W 50 ML 2 GM/50 ML BAG IVPB (09:23)
[2024-01-20] MEDS: BUPIVACAINE/EPINEPHRINE 0.5% 30 ML VIAL INFILTRATE (09:42)
--- NOTE | 2024-01-20 09:57 | P.OP_ITS ---
Procedure Note - Detailed Date of Procedure 01/20/24 Pre-op Diagnosis Breast Cancer Post-op Diagnosis Same Procedure Performed Removal of right internal jugular port Surgeon Tessa Mello MD Automatic Developer Fernanda Cm PA-C Anesthesia MAC Description of Procedure Patient was identified in the preoperative holding area brought to the operating room suite. She was laid supine in the operating table sequential compression devices were applied. Anesthesia was induced without difficulty. The right upper chest and neck area were prepped and draped in a sterile fashion. The skin overlying the port and the junction of the catheter to the port was infiltrated with 0.25% Marcaine with epinephrine. A small incision was made overlying the previous port incision and dissection was carried down through the subcutaneous tissue carefully until the port capsule was encountered. The port was freed from the underlying tissue by removing the previous sutures that were placed. The port was externalized and the pursestring was placed around the catheter entry site into the subcutaneous tissue. Pressure was applied to the neck well the catheter was removed to collapse the tunnel. Once the catheter in the port were removed this was inspected and the tip was intact. The catheter and the port were passed off the table and the cavity was irrigated with saline and hemostasis was assured. The posterior capsule was excised to allow the wound to completely heal. The deep dermal layer was closed with interrupted 3-0 Vicryl followed by 4-0 Monocryl in a subcuticular layer. Dermabond was applied followed by a pressure sterile dressing. Patient was awoken from anesthesia taken to the recovery area in stable condition. All needles, instruments, sponge counts were correct as reported by the operating room staff. Patient tolerated the procedure well with no immediate complications. Estimated Blood Loss 2 Pathology None sent Complications No immediate complications Condition Stable Disposition PACU [facility] Billing Surgery - Charge Forward: Surgery Billing (CPT 42635)
[2024-01-20 10:00] VITALS: BP 94/59; PULSE 49; RESP 12; O2SAT 99
[2024-01-20 10:30] VITALS: BP 100/50; PULSE 53; RESP 16
[2024-01-20 10:54] VITALS: BP 103/66; PULSE 45; RESP 16
== END 2024-01-20 11:03 | disposition home or self-care (01) ==
PROVIDERS: PCP Family Medicine; Visit Provider Surgery
PROC: (CPT 36590; principal; 2024-01-20 09:00)
DX: Z45.2 Encounter for adjustment and management of vascular access device (principal); Z85.3 Personal history of malignant neoplasm of breast
CPT/HCPCS: 36590; J0690; J1644; J2405; J2704; J3010; J7030; J7120

== ENCOUNTER 2024-03-28 11:44 | Outpatient (CLI) | payer MEDICARE, SELFPAY ==
--- NOTE | ~2024-03-28 | MMUS_ITS ---
EXAMINATION: MM diagnostic kristy BI w nupur, US breast BI complete HISTORY: History of breast cancer. TECHNIQUE: Additional 3-D tomosynthesis images of the breasts were performed and synthetic 2-D images were generated. CAD analysis was submitted and interpreted. High resolution bilateral complete breas t ultrasound was performed. COMPARISON: Comparison to multiple prior studies sequentially, with oldest reviewed study dated 12/16. BREAST PARENCHYMAL COMPOSITION: Dense: The breasts are extremely dense, which lowers the sensitivity of mammography. FINDINGS: MAMMOGRAPHIC FINDINGS: There are no suspicious masses, calcifications or architectural distortion in either breast to sugges t malignancy. ULTRASOUND: Complete bilateral US of all 4 quadrants of the breasts and retroareolar region was reviewed. Normal heterogeneous echotexture without focal solid or cystic mass. IMPRESSION: 1. No evidence for malignancy in either breast. 2. Routine yearly screening mammogram and regular clinical breast examination are recommended. BI-RADS Category 1: Negative Reviewed, dictated and finalized at location B. IMPRESSION: 1. No evidence for malignancy in either breast. 2. Routine yearly screening mammogram and regular clinical breast examination a re recommended. BI-RADS Category 1: Negative
== END 2024-03-28 11:45 ==
LOC: MICIMG 11:46
PROVIDERS: PCP Physician Assistant Surgical; Visit Provider Physician Assistant Surgical
DX: C50.412 Malignant neoplasm of upper-outer quadrant of left female breast (principal)
CPT/HCPCS: 76641; 77062; 77066; G0279

== ENCOUNTER 2024-12-05 12:41 | Outpatient (CLI) | payer MEDICARE, SELFPAY ==
--- NOTE | ~2024-12-05 | MR_ITS ---
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 Trace administration. TECHNIQUE: MRI of the breasts perform using standard protocol pre-and post IV contrast with the follo wing sequences: Axial T2 STIR, axial T1, axial vibrant T1 with fat suppression precontrast and multip hasic postcontrast. 10 cc MultiHance administered intravenously. COMPARISON: . Comparison to multiple prior studies sequentially, with oldest reviewed study dated . FINDINGS: The breasts are extremely dense with fibroglandular tissue. Right breast: There are no abnormalities on the precontrast sequences. There is minimal background pa renchymal enhancement. No enhancing lesions following contrast administration. No areas of enhancem ent meeting threshold criteria on CAD analysis. No evidence of signal abnormalities in the axillary or internal mammary node distributions. LEFT BREAST: There is significant artifact in the left breast from magtrace injection at the time of prior surgery causing significant signal loss in the left breast. The study of the left breast is not diagnostic for pathology in the area of artifact. There is minimal background parenchymal enhancemen t. No enhancing lesions following contrast administration. No areas of enhancement meeting thresho ld criteria on CAD analysis. No evidence of signal abnormalities in the axillary or internal mammar y node distributions.] IMPRESSION: 1: No evidence for malignancy in either breast. MagTrace artifact in the left breast limits evaluatio n for pathology at this location. Routine yearly screening mammogram and regular clinical breast examination are recommended. BI-RADS CATEGORY 2 - BENIGN FINDINGS Reviewed, dictated and finalized at location B. E GAMES MANAGER IMPRESSION: 1: No evidence for malignancy in either breast. MagTrace artifact in the left b reast limits evaluation for pathology at this location. Routine yearly screening mammogram and regular clinical breast examination are recommended. BI-RADS CATEGORY 2 - BENIGN FINDINGS
--- OUTSIDE RECORDS SUMMARY | 2024-12-05 15:12 | XMS_ITS | Continuity of Care Document ---
Author Organization [facility] Address [address] [place] [address] [address] [place] [address] Phone Care Team Providers Care Needle Loom Setter Name Role Phone Pablo Naqvi Unavailable Unavailable Procedures Procedure Date Eye Exam & Treatment Refraction Eye Exam & Treatment Refraction Advance Directives Directive Yes / No Effective Date File Name No Information Encounters Encounter Description Practice Location Reason(s) For Visit Diagnoses Date Provider Providers Copied on Encounter Merged with [facility], [address] [place] [address] [address], [place], [place], [id number], tel:[phone] [facility] [place] No Information Nov-2 200 9 Driss Shah. [address], [address], [place], [place], [facility], . tel:[phone] Merged with [facility], [address] [place] [address] [address], [place], [place], [id number], tel:[phone] [facility] [place] No Information b-0 5200 7 Driss Shah. [address] [facility] [address], [address], [place], [address], [place]. tel:[phone] Family History Family Member Type Diagnosis Age At Onset No Information Payers Payer name Insurance type Covered democrat ID Linnette espinoza(s) [employer] SOI CI [id number] Social History Type Description Quantity Date Captured [...]
--- OUTSIDE RECORDS SUMMARY | 2024-12-05 15:12 | XMS_ITS | Clinical Summary ---
Author Organization [facility] Address [address] [facility] [place] [address] Care Team Providers Care Solar Thermal Installer Name Role Phone Raheem Gibson MD Primary Care Provider [phone] Allergies No known active allergies Medications Glucosamine Sulfate 1,000 mg Capsule Take by mouth. Activ e multivitamin (DAILY-ISABEL) tablet Take 1 Tablet by mouth daily. Active cyanocobalamin (VITAMIN B-12) 50 mcg Tablet Take 50 mcg by mouth daily. Active omega-3 fatty acids-fish oil 300-1,000 mg Capsule Take 1 Capsule by mouth daily. Active calcium citrate-vitamin d3 (CITRACAL D MAX) 315 mg-6.25 mcg (250 unit) Tablet Take 1 Tablet by mouth daily. Active POTASSIUM AMINOBENZOATE ORAL Take by mouth. Activ e estrella root extract 15 mg Tablet, Chewable Take by mouth. Active lidocaine-priloca ine (EMLA) 2.5-2.5 % Cream Apply to affected area see administration instructions. 30 Gram 1 07/21/20 23 Active ondansetron (ZOFRAN ODT) 8 mg Tablet, Rapid Dissolve Dissolve 1 tablet on top of tongue then swallow with saliva every 8 hours as needed for nausea or vomiting 30 Tablet 1 07/21/20 23 Active dexAMETHasone (DECADRON) 4 mg tabletIndications :Malignant neoplasm of upper-outer quadrant of left breast in female, estrogen receptor negative (CMS/HCC) Take 1 tablet by mouth BID day prior, day of, and day after treatment. 6 Tablet 4 07/30/20 23 Active Active Problems No known active problems Encounters Date Type Department Care Team Description 11/15/2024 External Device Data ST[facility] ABSTRACTION Provider, Abstract 11/09/2024 External Device Data [facility] ABSTRACTION Provider, Abstract 11/09/2024 External Device Data [facility] ABSTRACTION Provider, Abstract 11/01/2024 2:30 PM SPINNING SUPERVISOR Office Visit [facility] [place] [address] [place] [address] Deuce Mas MD Malignant neoplasm of upper-outer quadrant of left breast in female, estrogen receptor negative (CMS/HCC) (Primary Dx) 10/31/2024 Orders Only [facility] [place] [address] [place] [address] Deuce Mas MD 10/31/2024 Telephone [facility] [place] [address] [place] [phone] Deuce Mas MD Labs for Appt. from Last 3 Months Immunizations Immunization Administration Dates Next Due ([employer](12 YR UP) COVID-19 VACCINE - EMERGENCY USE AUTHORIZATION, MRNA, [id number](PF) 30 MCG/0.3 ML IM SUSP 12/19/2020,11/21/2020 Family History Relation Name Status Comments Daughter Alive Father Mother Sister 1 Alive Sister 2 Alive Son Alive Social History Tobacco Use Types Packs/Day Years Used Date Smoking Tobacco: Never Smokeless Tobacco: Never Tobacco Cessation:Counseling Given: Not Answered Alcohol Use Standard Drinks/Week Comments Never 0 (1 standard drink = 0.6 oz pur e alcohol) Comments Unknown Sex and Gender Information Value Date Recorded Sex Assigned at Female 07/03/2024 7:21 PM CDT Legal Sex Female 10:41 AM CDT Gender Identity Female 07/03/2024 7:21 PM CDT Sexual Orientation Not on file Last Filed Vital Signs Vital Sign Reading Time Taken Comments Blood Pressure 111/77 11/01/2024 2:15 PM SPINNING SUPERVISOR Pulse 77 11/01/2024 2:15 PM SPINNING SUPERVISOR Temperature 36.2 C (97.1 F) 11/01/2024 2:15 PM SPINNING SUPERVISOR Respiratory Rate 14 11/01/2024 2:15 PM SPINNING SUPERVISOR Oxygen Saturation 97% 11/01/2024 2:15 PM SPINNING SUPERVISOR Inhaled Oxygen Concentration - - Weight 51.3 kg (113 lb) 11/01/2024 2:15 PM SPINNING SUPERVISOR Height 167.6 cm (5' 6 ) 06/04/2023 9:01 AM CDT Body Mass Index 18.24 06/04/2023 9:01 AM CDT Plan of Treatment Upcoming Encounters Date Type Department Care Team (Late st Contact Info) Description 03/02/2025 2:45 PM CDT Office Visit [facility] - [place] [address] [facility] [address] [place] [address] Deuce Mas MD [address] [facility] [address] [place] [address] Health Maintenance Due Date Last Done Comments DTAP/TDAP/TD VACCINES (1 - Tdap) 1972 FIT-DNA Q 3 years 1998 FIT/FOBT Q 1 year 1998 Flex Sig/CT Colonography Q 5 years 1998 ZOSTER VACCINE (1 of 2) 2003 OSTEOPOROSIS SCREENING 2018 INFLUENZA VACCINE (#1) 2024 COVID-19 Vaccine ( season) 06/19/202412/2020, 11/21/2020 BREAST CANCER SCREENING 10/29/2024 10/29/2023 COLORECTAL SCREENING 10/14/2027 10/14/2017 Colorectal Cancer Screening 10/14/2027 RSV VACCINE (60+ or ) (1 - 1-dose 75+ series) 2028 PNEUMOCOCCAL VACCINE 65+ YEARS Completed 12/29/2019 , 01/04/2019 Procedures Procedure Name Priority Date/Time Associated Diagnosis Comments COMPREHENSIVE METABOLIC PANEL Routine 10/25/2024 12:58 PM SPINNING SUPERVISOR MAMMO DIAGNOSTIC UNI RIGHT W OR WO CAD Routine 10/29/2023 11:20 AM SPINNING SUPERVISOR from Last 3 Months or Most Recently Relevant to Health Maintenance Results * COMPREHENSIVE METABOLIC PANEL (10/25/2024 12:58 PM SPINNING SUPERVISOR) Blood Deuce Mas MD CHEMISTRY ORDERABLES Final Resu lt * MAMMO DIAGNOSTIC UNI RIGHT W OR WO CAD (10/29/2023 11:20 AM SPINNING SUPERVISOR) Anatomical Region Laterality Modality Breast Right Other Deuce Mas MD MAMMO ORDERABLES Final Result from Last 3 Months or Most Recently Relevant to Health Maintenance Insurance [facility] [id number] [facility] Address: [facility] [id number] [place] [phone] Care Teams Solar Thermal Installer Relationship Specialty Start Date End Date Raheem Gibson MD [address] [place], [place] [address] [place] [id number] PCP - General Family Practice 11/01/24
--- OUTSIDE RECORDS SUMMARY | 2024-12-05 15:12 | XMS_ITS | Data Portability ---
Author Organization [facility], Main Office Address [address] [place] [address] Assessment No assessment recorded. Plan of Treatment Reminders Order Date Submit Date Provider Last Modified By Organization Details Last Modified Time Details Appointments None recorded. Lab vitamin D3, 25-hydroxy , serum 2023 024 [email or web address] Not available 4 08:25:15 BMP, serum or plasma 2023 024 GORDON Not available 4 07:13:42 lipid panel, serum 2023 024 GORDON Not available 4 07:13:43 hepatic function panel, serum 2023 024 GORDON Not available 4 07:13:44 CBC w/ auto diff 2023 024 GORDON Not available 4 07:13:40 vitamin D, 25-hydroxy , total, serum 2022 023 [facility] [place] (Lab), [address] [place], [address], 3 01:00:05 lipid panel, serum 2022 023 [facility] (Lab), [address] [place], [address], 3 21:05:22 hepatic function panel, serum 2022 023 [facility] (Lab), [address] [place], [address], 21:05:28 CBC w/ auto diff 2022 023 [facility] (Lab), [address] [place], [address], 19:51:40 BMP, serum or plasma 2022 023 [facility] (Lab), [address] [place], [address], 21:05:17 Referral None recorded. Procedures None recorded. Surgeries None recorded. Imaging DEXA [id number] [facility], [address]endejas, [place] [address], [place], [address], 10:03:18 Medication Orders None recorded. Patient TargetsNo targets recorded. Patient Instructions Encounter Date Encounter Id Patient Instructions Last Modified By Organization Details Last Modified Time 01/21/2023 [id number] dementia rating scale-2* Not available 01/26/2023 15:47:19 alcohol misuse* Not available 01/26/2023 15:47:26 depression screening* Not available 01/26/2023 15:47:31 multi-dimensiona l health assessment questionnaire* Not available 01/26/2023 15:47:14 Personalized [facility] Plan and Screening Recommendations Advance Directives - Do you have one? Yes Advance Directives - Do we have your advance directive on file in your health record? No, please bring in a copy at your earliest convenience Primary Prevention/Interven tion (prevents or decreases the chance of common diseases from occurring) Smoking Risk: Non Smoker Alcohol Misuse Screening: Negative Weight: Appropriate Physical activity: Appropriate physical activity Nutrition: Good Fall Risk (screened today): Low Vaccines Pneumococcal: Ordered Recommended today Recommended today, but you have declined No further needed Influenza: Your next one in the fall of this year Chronic Disease Risks Stroke: Low Risk I have no recommendations Heart Attack: Low risk I have no recommendations Clogging of the Arteries: Low risk I have no recommendations Diabetes: Low Risk I have no recommendations Secondary Prevention/Interven tion (detects treatable diseases before they may cause symptoms, disability, or ) Breast Cancer Screening with mammogram: Cervical/Uterine/Ov emanuel Cancer Screening: No screening necessary Osteoporosis Screening: Your next DEXA in: Ordered Recomme nded today Date Screening Last Performed: 04/2020 Colon Cancer Screening: Colonoscopy Date Screening Last Performed: 10/15/17 Eye Disease Screening: Dementia Risk: Low I have no recommendations Depression Screening: Negative Not available 01/20/2023 13:02:50 01/25/2024 [id number] dementia rating scale-2* [email or web address] Not available 01/25/2024 09:00:59 Personalized a lt Plan and Screening Recommendations Advance Directives - Do you have one? Advance Directives - Do we have your advance directive on file in your health record? Primary Prevention/Interven tion (prevents or decreases the chance of common diseases from occurring) Smoking Risk: Alcohol Misuse Screening: Weight: Physical activity: Nutrition: Fall Risk (screened today): Vaccines Pneumococcal: Influenza: Chronic Disease Risks Stroke: I have no recommendations Active diagnosis, Continue current treatment plan Heart Attack: I have no recommendations Act sohail diagnosis, Continue current treatment plan Clogging of the Arteries: I have no recommendations Act sohail diagnosis, Continue current treatment plan Diabetes: Active diagnosis, Continue current treatment plan Secondary Prevention/Interven tion (detects treatable diseases before they may cause symptoms, disability, or ) Breast Cancer Screening with mammogram: Cervical/Uterine/Ov emanuel Cancer Screening: Osteoporosis Screening: Date Screening Last Performed: Colon Cancer Screening: Date Screening Last Performed: Eye Disease Screening: Dementia Risk: Depression Screening: Active diagnosis, Continue current treatment plan [id number] Not available 01/25/2024 08:02:36 Reason for Referral None Reported. Results Created Date Observation Date Name Description Value Unit Range Abnormal Flag Note LastModifiedBy Organization Detail LastModifiedTime 01/04/20 22 01/04/2022 VITAM IN D, 25-HY DROXY vitamin D, 25-hydroxy 44.4 NG/mL 30.0-1 00.0 Vitam in D defic iency has been defin ed by the Insti tute of Medic ine and an Endoc rine Socie ty pract ice guide line as a level of serum 25-OH vitam in D less than 20 ng/mL (1,2) . The Endoc rine Socie ty went on to furth er defin e vitam in D insuf ficie ncy as a level betwe en 21 and 29 ng/mL (2). 1. IOM (Inst itute of Medic ine). 2009. Dieta ry refer ence manny es for calci um and D. Ronak mccain DC: [facility] . 2. Ashwin rogel MF, Stanley grossman [place], Javon off-F errar i PABON, et al. Evalu ation , treat ment, and preve ntion of vitam in D defic iency : an Endoc rine Socie ty clini trace pract ice guide line. JCEM. 2010; 96(7) :1911 -30. Not Available [facility] [address] [place], [address], 01/04/2022 08:18:58 01/04/20 22 01/04/2022 TSH TSH 3.280 uIU/m L 0.450- 4.500 Not Available [facility] [address] [place], [address], 01/04/2022 08:18:58 01/04/20 22 01/04/2022 LIPID PANEL cholesterol, total 232 mg/dL 100-19 9 above high normal Not Available [facility] [address] [place], [address], 01/04/2022 08:18:57 01/04/20 22 01/04/2022 LIPID PANEL triglyceride s 55 mg/dL 0-149 Not Available [facility] [address] [place], [address], 01/04/2022 08:18:57 01/04/20 22 01/04/2022 LIPID PANEL HDL cholesterol 108 mg/dL >39 Not Available [facility] [address] [place], [address], 01/04/2022 08:18:57 01/04/20 22 01/04/2022 LIPID PANEL VLDL cholesterol trace 9 mg/dL 5-40 Not Available [facility] [address] [place], [address], 01/04/2022 08:18:57 01/04/20 22 01/04/2022 LIPID PANEL LDL chol calc ([facility]) 115 mg/dL 0-99 above high normal Not Available [facility] [address] [place], [address], 01/04/2022 08:18:57 01/04/20 22 01/04/2022 LIPID PANEL comment: extrusion bender Not Available [facility] [address] [place], [address], 01/04/2022 08:18:57 01/04/20 22 01/04/2022 BASIC METAB OLIC PANEL (8) glucose 83 mg/dL 65-99 Not Available [facility] [address] [place], [address], 01/04/2022 08:18:57 01/04/20 22 01/04/2022 BASIC METAB OLIC PANEL (8) BUN 17 mg/dL 8-27 Not Available [facility] [address] [place], [address], 01/04/2022 08:18:57 01/04/20 22 01/04/2022 BASIC METAB OLIC PANEL (8) creatinine 0.99 mg/dL 0.57-1 .00 Not Available [facility] [address] [place], [address], 01/04/2022 08:18:57 01/04/20 22 01/04/2022 BASIC METAB OLIC PANEL (8) eGFR 62 mL/mi n/1.7 3 >59 Not Available [facility] [address] [facility] [place], [address], 01/04/2022 08:18:57 01/04/20 22 01/04/2022 BASIC METAB OLIC PANEL (8) BUN/creatini ne ratio 17 12-28 Not Available [facility] [address] [facility] [place], [address], 01/04/2022 08:18:57 01/04/20 22 01/04/2022 BASIC METAB OLIC PANEL (8) sodium 141 mmol/ L 134-14 4 Not Available [facility] [address] [place], [address], 01/04/2022 08:18:57 01/04/20 22 01/04/2022 BASIC METAB OLIC PANEL (8) potassium 4.3 mmol/ L 3.5-5. 2 Not Available [facility] [address] [place], [address], 01/04/2022 08:18:57 01/04/20 22 01/04/2022 BASIC METAB OLIC PANEL (8) chloride 101 mmol/ L 96-106 Not Available [facility] [address] [place], [address], 01/04/2022 08:18:57 01/04/20 22 01/04/2022 BASIC METAB OLIC PANEL (8) carbon dioxide, total 22 mmol/ L 20-29 Not Available [facility] [address] [place], [address], 01/04/2022 08:18:57 01/04/20 22 01/04/2022 BASIC METAB OLIC PANEL (8) calcium 9.7 mg/dL 8.7-10 .3 Not Available [facility] [address] [place], [address], 01/04/2022 08:18:57 01/04/20 22 01/04/2022 CBC WITH DIFFE RENTI AL/PL ATELE T WBC 2.6 x10e3 /uL 3.4-10 .8 below low normal Not Available [facility] [address] [place], [address], 01/04/2022 08:18:56 01/04/20 22 01/04/2022 CBC WITH DIFFE RENTI AL/PL ATELE T RBC 3.74 x10e6 /uL 3.77-5 .28 below low normal Not Available [facility] [address] [place], [address], 01/04/2022 08:18:56 01/04/20 22 01/04/2022 CBC WITH DIFFE RENTI AL/PL ATELE T hemoglobin 11.6 g/dL 11.1-1 5.9 Not Available [facility] [address] [place], [address], 01/04/2022 08:18:56 01/04/20 22 01/04/2022 CBC WITH DIFFE RENTI AL/PL ATELE T hematocrit 33.7 % 34.0-4 6.6 below low normal Not Available [facility] [address] [place], [address], 01/04/2022 08:18:56 01/04/20 22 01/04/2022 CBC WITH DIFFE RENTI AL/PL ATELE T MCV 90 fL 79-97 Not Available [facility] [address] [place], [address], 01/04/2022 08:18:56 01/04/20 22 01/04/2022 CBC WITH DIFFE RENTI AL/PL ATELE T MCH 31.0 pg 26.6-3 3.0 Not Available [facility] [address] [facility] [place], [address], 01/04/2022 08:18:56 01/04/20 22 01/04/2022 CBC WITH DIFFE RENTI AL/PL ATELE T MCHC 34.4 g/dL 31.5-3 5.7 Not Available [facility] [address] [facility], [place], [address], 01/04/2022 08:18:56 01/04/20 22 01/04/2022 CBC WITH DIFFE RENTI AL/PL ATELE T RDW 12.2 % 11.7-1 5.4 Not Available [facility] [address] [facility], [place], [address], 01/04/2022 08:18:56 01/04/20 22 01/04/2022 CBC WITH DIFFE RENTI AL/PL ATELE T platelets 215 x10e3 /uL 150-45 0 Not Available [facility] [address] [facility], [place], [address], 01/04/2022 08:18:56 01/04/20 22 01/04/2022 CBC WITH DIFFE RENTI AL/PL ATELE T neutrophils 70 % not estab. Not Available [facility] [address] [facility], [place], [address], 01/04/2022 08:18:56 01/04/20 22 01/04/2022 CBC WITH DIFFE RENTI AL/PL ATELE T lymphs 22 % not estab. Not Available [facility] [address] [facility], [place], [address], 01/04/2022 08:18:56 01/04/20 22 01/04/2022 CBC WITH DIFFE RENTI AL/PL ATELE T monocytes 8 % not estab. Not Available [facility] [address] [facility], [place], [address], 01/04/2022 08:18:56 01/04/20 22 01/04/2022 CBC WITH DIFFE RENTI AL/PL ATELE T eos 0 % not estab. Not Available [facility] [address] [place], [address], 01/04/2022 08:18:56 01/04/20 22 01/04/2022 CBC WITH DIFFE RENTI AL/PL ATELE T basos 0 % not estab. Not Available [facility] [address] [place], [address], 01/04/2022 08:18:56 01/04/20 22 01/04/2022 CBC WITH DIFFE RENTI AL/PL ATELE T immature cells extrusion bender Not Available [facility] [address] [place], [address], 01/04/2022 08:18:56 01/04/20 22 01/04/2022 CBC WITH DIFFE RENTI AL/PL ATELE T neutrophils (absolute) 1.8 x10e3 /uL 1.4-7. 0 Not Available [facility] [address] [place], [address], 01/04/2022 08:18:56 01/04/20 22 01/04/2022 CBC WITH DIFFE RENTI AL/PL ATELE T lymphs (absolute) 0.6 x10e3 /uL 0.7-3. 1 below low normal Not Available [facility] [address] [place], [address], 01/04/2022 08:18:56 01/04/20 22 01/04/2022 CBC WITH DIFFE RENTI AL/PL ATELE T monocytes(ab solute) 0.2 x10e3 /uL 0.1-0. 9 Not Available [facility] [address] [place], [address], 01/04/2022 08:18:56 01/04/20 22 01/04/2022 CBC WITH DIFFE RENTI AL/PL ATELE T eos (absolute) 0.0 x10e3 /uL 0.0-0. 4 Not Available [facility] [address] [facility], [place], [address], 01/04/2022 08:18:56 01/04/20 22 01/04/2022 CBC WITH DIFFE RENTI AL/PL ATELE T baso (absolute) 0.0 x10e3 /uL 0.0-0. 2 Not Available [facility] [address] [facility], [place], [address], 01/04/2022 08:18:56 01/04/20 22 01/04/2022 CBC WITH DIFFE RENTI AL/PL ATELE T immature granulocytes 0 % not estab. Not Available [facility] [address] [facility], [place], [address], 01/04/2022 08:18:56 01/04/20 22 01/04/2022 CBC WITH DIFFE RENTI AL/PL ATELE T immature grans (abs) 0.0 x10e3 /uL 0.0-0. 1 Not Available [facility] [address] [facility], [place], [address], 01/04/2022 08:18:56 01/04/20 22 01/04/2022 CBC WITH DIFFE RENTI AL/PL ATELE T NRBC extrusion bender Not Available [facility] [address] [facility], [place], [address], 01/04/2022 08:18:56 01/04/20 22 01/04/2022 CBC WITH DIFFE RENTI AL/PL ATELE T hematology comments: extrusion bender Not Available [facility] [address] [facility], [place], [address], 01/04/2022 08:18:56 02/12/20 22 02/12/2022 CBC/D IFF AMBIG UOUS DEFAU LT MCH 31.1 pg 26.6-3 3.0 Not Available [facility] [address] [facility], [place], [address], 02/12/2022 05:09:41 02/12/20 22 02/12/2022 CBC/D IFF AMBIG UOUS DEFAU LT WBC 2.9 x10e3 /uL 3.4-10 .8 below low normal Not Available [facility] [address] [facility], [place], [address], 02/12/2022 05:09:41 02/12/20 22 02/12/2022 CBC/D IFF AMBIG UOUS DEFAU LT RBC 4.11 x10e6 /uL 3.77-5 .28 Not Available [facility] [address] [facility], [place], [address], 02/12/2022 05:09:41 02/12/20 22 02/12/2022 CBC/D IFF AMBIG UOUS DEFAU LT hemoglobin 12.8 g/dL 11.1-1 5.9 Not Available [facility] [address] [facility], [place], [address], 02/12/2022 05:09:41 02/12/2002/12/2022 CBC/D IFF AMBIG UOUS DEFAU LT hematocrit 38.1 % 34.0-4 6.6 Not Available [facility] [address] [place], [address], 02/12/2022 05:09:41 02/12/20 22 02/12/2022 CBC/D IFF AMBIG UOUS DEFAU LT MCV 93 fL 79-97 Not Available [facility] [address] [place], [address], 02/12/2022 05:09:41 02/12/20 22 02/12/2022 CBC/D IFF AMBIG UOUS DEFAU LT MCHC 33.6 g/dL 31.5-3 5.7 Not Available [facility] [address] [facility], [place], [address], 02/12/2022 05:09:41 02/12/20 22 02/12/2022 CBC/D IFF AMBIG UOUS DEFAU LT RDW 12.6 % 11.7-1 5.4 Not Available [facility] [address] [facility], [place], [address], 02/12/2022 05:09:41 02/12/20 22 02/12/2022 CBC/D IFF AMBIG UOUS DEFAU LT platelets 180 x10e3 /uL 150-45 0 Not Available [facility] [address] [facility], [place], [address], 02/12/2022 05:09:41 02/12/20 22 02/12/2022 CBC/D IFF AMBIG UOUS DEFAU LT neutrophils 62 % not estab. Not Available [facility] [address] [facility], [place], [address], 02/12/2022 05:09:41 02/12/20 22 02/12/2022 CBC/D IFF AMBIG UOUS DEFAU LT lymphs 28 % not estab. Not Available [facility] [address] [facility], [place], [address], 02/12/2022 05:09:41 02/12/20 22 02/12/2022 CBC/D IFF AMBIG UOUS DEFAU LT monocytes 9 % not estab. Not Available [facility] [address] [facility], [place], [address], 02/12/2022 05:09:41 02/12/20 22 02/12/2022 CBC/D IFF AMBIG UOUS DEFAU LT eos 0 % not estab. Not Available [facility] [address] [facility], [place], [address], 02/12/2022 05:09:41 02/12/20 22 02/12/2022 CBC/D IFF AMBIG UOUS DEFAU LT basos 1 % not estab. Not Available [facility] [address] [facility], [place], [address], 02/12/2022 05:09:41 02/12/20 22 02/12/2022 CBC/D IFF AMBIG UOUS DEFAU LT immature cells extrusion bender Not Available [facility] [address] [facility], [place], [address], 02/12/2022 05:09:41 02/12/20 22 02/12/2022 CBC/D IFF AMBIG UOUS DEFAU LT neutrophils (absolute) 1.8 x10e3 /uL 1.4-7. 0 Not Available [facility] [address] [place], [address], 02/12/2022 05:09:41 02/12/20 22 02/12/2022 CBC/D IFF AMBIG UOUS DEFAU LT lymphs (absolute) 0.8 x10e3 /uL 0.7-3. 1 Not Available [facility] [address] [place], [address], 02/12/2022 05:09:41 02/12/20 22 02/12/2022 CBC/D IFF AMBIG UOUS DEFAU LT monocytes(ab solute) 0.3 x10e3 /uL 0.1-0. 9 Not Available [facility] [address] [place], [address], 02/12/2022 05:09:41 02/12/20 22 02/12/2022 CBC/D IFF AMBIG UOUS DEFAU LT eos (absolute) 0.0 x10e3 /uL 0.0-0. 4 Not Available [facility] [address] [place], [address], 02/12/2022 05:09:41 02/12/20 22 02/12/2022 CBC/D IFF AMBIG UOUS DEFAU LT baso (absolute) 0.0 x10e3 /uL 0.0-0. 2 Not Available [facility] [address] [place], [address], 02/12/2022 05:09:41 02/12/2002/12/2022 CBC/D IFF AMBIG UOUS DEFAU LT immature granulocytes 0 % not estab. Not Available [facility] [address] [place], [address], 02/12/2022 05:09:41 02/12/20 22 02/12/2022 CBC/D IFF AMBIG UOUS DEFAU LT immature grans (abs) 0.0 x10e3 /uL 0.0-0. 1 Not Available [facility] [address] [place], [address], 02/12/2022 05:09:41 02/12/20 22 02/12/2022 CBC/D IFF AMBIG UOUS DEFAU LT NRBC extrusion bender Not Available [facility] [address] [place], [address], 02/12/2022 05:09:41 02/12/20 22 02/12/2022 CBC/D IFF AMBIG UOUS DEFAU LT hematology comments: extrusion bender A hand- writt en panel /prof becerra was recei ivonne from your offic e. In accor dance with the [facility] Ambig [facility] Test Code Polic y dated April 2003, we have assig ramón CBC with Eileen chaudhry al/Leticia jane, Test Code #[address]. If this is not the testi ng you wishe d to recei ve on this speci amy razo ct the [facility] Clien t Inqui ry/ Techn ical Servi joyce Depar tment to christine fy the test order . We appre ciate your busin ess. Not Available [facility] [address] [place], [address], 02/12/2022 05:09:41 03/11/20 22 03/12/2022 CBC WITH DIFFE RENTI AL/PL ATELE T WBC 3.8 x10e3 /uL 3.4-10 .8 Not Available [facility] [address] [place], [address], 03/12/2022 03:08:22 03/11/20 22 03/12/2022 CBC WITH DIFFE RENTI AL/PL ATELE T MCHC 33.3 g/dL 31.5-3 5.7 Not Available [facility] [address] [place], [address], 03/12/2022 03:08:22 03/11/20 22 03/12/2022 CBC WITH DIFFE RENTI AL/PL ATELE T RBC 4.39 x10e6 /uL 3.77-5 .28 Not Available [facility] [address] [place], [address], 03/12/2022 03:08:22 03/11/20 22 03/12/2022 CBC WITH DIFFE RENTI AL/PL ATELE T hemoglobin 13.4 g/dL 11.1-1 5.9 Not Available [facility] [address] [place], [address], 03/12/2022 03:08:22 03/11/20 22 03/12/2022 CBC WITH DIFFE RENTI AL/PL ATELE T hematocrit 40.2 % 34.0-4 6.6 Not Available [facility] [address] [facility], [place], [address], 03/12/2022 03:08:22 03/11/20 22 03/12/2022 CBC WITH DIFFE RENTI AL/PL ATELE T MCV 92 fL 79-97 Not Available [facility] [address] [facility], [place], [address], 03/12/2022 03:08:22 03/11/20 22 03/12/2022 CBC WITH DIFFE RENTI AL/PL ATELE T MCH 30.5 pg 26.6-3 3.0 Not Available [facility] [address] [facility], [place], [address], 03/12/2022 03:08:22 03/11/20 22 03/12/2022 CBC WITH DIFFE RENTI AL/PL ATELE T RDW 11.9 % 11.7-1 5.4 Not Available [facility] [address] [facility], [place], [address], 03/12/2022 03:08:22 03/11/20 22 03/12/2022 CBC WITH DIFFE RENTI AL/PL ATELE T platelets 185 x10e3 /uL 150-45 0 Not Available [facility] [address] [facility], [place], [address], 03/12/2022 03:08:22 03/11/20 22 03/12/2022 CBC WITH DIFFE RENTI AL/PL ATELE T neutrophils 60 % not estab. Not Available [facility] [address] [place], [address], 03/12/2022 03:08:22 03/11/20 22 03/12/2022 CBC WITH DIFFE RENTI AL/PL ATELE T lymphs 29 % not estab. Not Available [facility] [address] [place], [address], 03/12/2022 03:08:22 03/11/20 22 03/12/2022 CBC WITH DIFFE RENTI AL/PL ATELE T monocytes 9 % not estab. Not Available [facility] [address] [place], [address], 03/12/2022 03:08:22 03/11/20 22 03/12/2022 CBC WITH DIFFE RENTI AL/PL ATELE T eos 1 % not estab. Not Available [facility] [address] [place], [address], 03/12/2022 03:08:22 03/11/20 22 03/12/2022 CBC WITH DIFFE RENTI AL/PL ATELE T basos 1 % not estab. Not Available [facility] [address] [place], [address], 03/12/2022 03:08:22 03/11/20 22 03/12/2022 CBC WITH DIFFE RENTI AL/PL ATELE T immature cells extrusion bender Not Available [facility] [address] [place], [address], 03/12/2022 03:08:22 03/11/20 22 03/12/2022 CBC WITH DIFFE RENTI AL/PL ATELE T neutrophils (absolute) 2.3 x10e3 /uL 1.4-7. 0 Not Available [facility] [address] [place], [address], 03/12/2022 03:08:22 03/11/20 22 03/12/2022 CBC WITH DIFFE RENTI AL/PL ATELE T lymphs (absolute) 1.1 x10e3 /uL 0.7-3. 1 Not Available [facility] [address] [place], [address], 03/12/2022 03:08:22 03/11/20 22 03/12/2022 CBC WITH DIFFE RENTI AL/PL ATELE T monocytes(ab solute) 0.3 x10e3 /uL 0.1-0. 9 Not Available [facility] [address] [facility], [place], [address], 03/12/2022 03:08:22 03/11/20 22 03/12/2022 CBC WITH DIFFE RENTI AL/PL ATELE T eos (absolute) 0.0 x10e3 /uL 0.0-0. 4 Not Available [facility] [address] [place], [address], 03/12/2022 03:08:22 03/11/20 22 03/12/2022 CBC WITH DIFFE RENTI AL/PL ATELE T baso (absolute) 0.0 x10e3 /uL 0.0-0. 2 Not Available [facility] [address] [place], [address], 03/12/2022 03:08:22 03/11/20 22 03/12/2022 CBC WITH DIFFE RENTI AL/PL ATELE T immature granulocytes 0 % not estab. Not Available [facility] [address] [place], [address], 03/12/2022 03:08:22 03/11/20 22 03/12/2022 CBC WITH DIFFE RENTI AL/PL ATELE T immature grans (abs) 0.0 x10e3 /uL 0.0-0. 1 Not Available [facility] [address] [place], [address], 03/12/2022 03:08:22 03/11/20 22 03/12/2022 CBC WITH DIFFE RENTI AL/PL ATELE T NRBC extrusion bender Not Available [facility] [address] [place], [address], 03/12/2022 03:08:22 03/11/20 22 03/12/2022 CBC WITH DIFFE RENTI AL/PL ATELE T hematology comments: extrusion bender Not Available [facility] [address] [facility], [place], [address], 03/12/2022 03:08:22 01/22/20 23 01/21/2023 CBC/C OMPLE TE BLD COUNT W/DIF F white blood cells 3.2 x10'3 /uL 4.2-10 .8 low Not Available [facility] (Lab) [address] [place], [address], 01/21/2023 19:51:40 01/22/20 23 01/21/2023 CBC/C OMPLE TE BLD COUNT W/DIF F red blood cells 4.24 x10'6 /uL 3.80-5 .20 Not Available [facility] (Lab) [address] [place], [address], 01/21/2023 19:51:40 01/22/20 23 01/21/2023 CBC/C OMPLE TE BLD COUNT W/DIF F hemoglobin 12.5 g/dL 12.0-1 5.6 Not Available [facility] (Lab) [address] [place], [address], 01/21/2023 19:51:40 01/22/20 23 01/21/2023 CBC/C OMPLE TE BLD COUNT W/DIF F hematocrit 39.2 % 35.7-4 5.7 Not Available [facility] (Lab) [address] [place], [address], 01/21/2023 19:51:40 01/22/20 23 01/21/2023 CBC/C OMPLE TE BLD COUNT W/DIF F mean red cell volume 92.5 fL 82.0-9 9.0 Not Available [facility] (Lab) [address] [place], [address], 01/21/2023 19:51:40 01/22/20 23 01/21/2023 CBC/C OMPLE TE BLD COUNT W/DIF F mean red cell hemoglobin 29.5 pg 27.0-3 3.0 Not Available [facility] (Lab) [address] [place], [address], 01/21/2023 19:51:40 01/22/20 23 01/21/2023 CBC/C OMPLE TE BLD COUNT W/DIF F mean RBC HGB concentratio n 31.9 g/dL 31.0-3 6.0 Not Available [facility] (Lab) [address] [place], [address], 01/21/2023 19:51:40 01/22/20 23 01/21/2023 CBC/C OMPLE TE BLD COUNT W/DIF F red cell distribution width 13.2 % 11.8-1 5.5 Not Available [facility] (Lab) [address] [place], [address], 01/21/2023 19:51:40 01/22/20 23 01/21/2023 CBC/C OMPLE TE BLD COUNT W/DIF F platelets 222 x10'3 /uL 150-40 0 Not Available [facility] (Lab) [address] [place], [address], 01/21/2023 19:51:40 01/22/20 23 01/21/2023 CBC/C OMPLE TE BLD COUNT W/DIF F mean platelet volume 11.6 fL 9.0-12 .4 Not Available [facility] (Lab) [address] [place], [address], 01/21/2023 19:51:40 01/22/20 23 01/21/2023 CBC/C OMPLE TE BLD COUNT W/DIF F neutrophils 58.0 % 39.0-7 2.0 Not Available [facility] (Lab) [address] [place], [address], 01/21/2023 19:51:40 01/22/2001/21/2023 CBC/C OMPLE TE BLD COUNT W/DIF F lymphocytes 31.0 % 16.0-4 7.0 Not Available [facility] (Lab) [address] [place], [address], 01/21/2023 19:51:40 01/22/20 23 01/21/2023 CBC/C OMPLE TE BLD COUNT W/DIF F monocytes 9.8 % 5.0-12 .0 Not Available [facility] (Lab) [address] [place], [address], 01/21/2023 19:51:40 01/22/2001/21/2023 CBC/C OMPLE TE BLD COUNT W/DIF F eosinophils 0.3 % 1.0-7. 0 low Not Available [facility] (Lab) [address] [place], [address], 01/21/2023 19:51:40 01/22/2001/21/2023 CBC/C OMPLE TE BLD COUNT W/DIF F basophils 0.6 % 0.0-2. 0 Not Available [facility] (Lab) [address] [place], [address], 01/21/2023 19:51:40 01/22/2001/21/2023 CBC/C OMPLE TE BLD COUNT W/DIF F immature granulocytes 0.3 % 0.00-0 .50 Not Available [facility] (Lab) [address] [place], [address], 01/21/2023 19:51:40 01/22/20 23 01/21/2023 CBC/C OMPLE TE BLD COUNT W/DIF F neutrophils, absolute count 1.83 x10'3 /uL 1.5-8. 0 Not Available [facility] (Lab) [address] [place], [address], 01/21/2023 19:51:40 01/22/2001/21/2023 CBC/C OMPLE TE BLD COUNT W/DIF F lymphocytes, absolute count 0.98 x10'3 /uL 1.07-3 .43 low Not Available [facility] (Lab) [address] [place], [address], 01/21/2023 19:51:40 01/22/20 23 01/21/2023 CBC/C OMPLE TE BLD COUNT W/DIF F monocytes, absolute count 0.31 x10'3 /uL 0.29-0 .99 Not Available [facility] (Lab) [address] [place], [address], 01/21/2023 19:51:40 01/22/20 23 01/21/2023 CBC/C OMPLE TE BLD COUNT W/DIF F eosinophils, absolute count 0.01 x10'3 /uL 0.02-0 .53 low Not Available [facility] (Lab) [address] [place], [address], 01/21/2023 19:51:40 01/22/20 23 01/21/2023 CBC/C OMPLE TE BLD COUNT W/DIF F basophils, absolute count 0.02 x10'3 /uL 0.01-0 .08 Not Available [facility] (Lab) [address] [place], [address], 01/21/2023 19:51:40 01/22/20 23 01/21/2023 CBC/C OMPLE TE BLD COUNT W/DIF F immature granulocytes ,absolute 0.01 x10'3 /uL 0.00-0 .05 Not Available [facility] (Lab) [address] [place], [address], 01/21/2023 19:51:40 01/22/20 23 01/21/2023 CBC/C OMPLE TE BLD COUNT W/DIF F nucleated red blood cells 0.0 % -0 Not Available [facility] (Lab) [address] [place], [address], 01/21/2023 19:51:40 01/22/20 23 01/21/2023 CBC/C OMPLE TE BLD COUNT W/DIF F NRBC# 0.00 x10'3 /uL Not Available [facility] (Lab) [address] [place], [address], 01/21/2023 19:51:40 01/22/2001/21/2023 BASIC METAB OLIC PANEL sodium 140 mmol/ L 137-14 5 Not Available [facility] (Lab) [address] [place], [address], 01/21/2023 21:05:17 01/22/20 23 01/21/2023 BASIC METAB OLIC PANEL potassium 3.8 mmol/ L 3.5-5. 1 Not Available [facility] (Lab) [address] [place], [address], 01/21/2023 21:05:17 01/22/20 23 01/21/2023 BASIC METAB OLIC PANEL chloride 105 mmol/ L 98-107 Not Available [facility] (Lab) [address] [place], [address], 01/21/2023 21:05:17 01/22/20 23 01/21/2023 BASIC METAB OLIC PANEL carbon dioxide 27 mmol/ L 22-30 Not Available [facility] (Lab) [address] [place], [address], 01/21/2023 21:05:17 01/22/20 23 01/21/2023 BASIC METAB OLIC PANEL anion gap 11.8 mmol/ L 14-22 low Not Available [facility] (Lab) [address] [place], [address], 01/21/2023 21:05:17 01/22/20 23 01/21/2023 BASIC METAB OLIC PANEL glucose 85 mg/dL 70-99 Not Available [facility] (Lab) [address] [place], [address], 01/21/2023 21:05:17 01/22/20 23 01/21/2023 BASIC METAB OLIC PANEL BUN 20 mg/dL 8-19 high Not Available [facility] (Lab) [address] [place], [address], 01/21/2023 21:05:17 01/22/20 23 01/21/2023 BASIC METAB OLIC PANEL creatinine 0.79 mg/dL 0.66-1 .25 Not Available [facility] (Lab) [address] [place], [address], 01/21/2023 21:05:17 01/22/20 23 01/21/2023 BASIC METAB OLIC PANEL GFR >60 Refer ence Range : Turner ge GFR Healt hy Adult : >60 mL/mi n/1.7 3 m2 Chron ic Kidne y Disea se: 15-60 mL/mi n/1.7 3 m2 Kidne y Failu re: <15/m L/min /1.73 m2 www.n iddk. nih.g ov The MDRD study equat ion has not been valid ated in child elsa <18 years of age; pregn ant women ; the elder ly >85 years of age; or in some racia l or ethni c subgr oups, such as Hismo nics. Outsi de the valid ated pankaj eters , estim ated GFR is less accur ate, requi ring clini trace judgm ent on a case- by-ca se basis . Clini trace inter preta tion for other races and ages must be made by the clini grupo. The MDRD study equat ion has not been valid ated for the evalu ation of serum creat inine relat ed to nutri rita l statu s or medic ation usage . For perso ns <18 years of age, a pedia tric GFR calcu latchristiano is avail able on the [facility] websi te: https ://jakob malik.cortez alvarenga.o rg/pr ene maki s/kdo qi/gf r_cal culat or Not Available [facility] (Lab) [address] [place], [address], 01/21/2023 21:05:17 01/22/20 23 01/21/2023 BASIC METAB OLIC PANEL calcium 9.8 mg/dL 8.4-10 .2 Not Available [facility] (Lab) [address] [place], [address], 01/21/2023 21:05:17 01/22/20 23 01/21/2023 LIPID PANEL cholesterol 241 mg/dL 140-19 9 high NIH JUAN DIEGO NSUS RECOM MENDA TION FOR TEN STERO L: ADULT CHILD LOW RISK: <200 <170 BORDE RLINE : <200- 239 ----- HIGH RISK: >240 >200 Not Available [facility] (Lab) [address] [place], [address], 01/21/2023 21:07:35 01/22/2001/21/2023 LIPID PANEL triglyceride s 47 mg/dL 0-150 NIH JUAN DIEGO NSUS REPOR T RECOM MENDA TION FOR TRIGL YCERI FRANC: ADULT CHILD LOW RISK: <150 ----- BODER LINE: 150-1 99 ----- HIGH RISK: >200 ----- Not Available [facility] (Lab) [address] [place], [address], 01/21/2023 21:07:35 01/22/20 23 01/21/2023 LIPID PANEL HDL cholesterol 127 mg/dL 40- Not Available [facility] (Lab) [address] [place] [address], [address], 01/21/2023 21:07:35 01/22/20 23 01/21/2023 LIPID PANEL LDL cholesterol, calculated 105 mg/dL 0-130 NIH JUAN DIEGO NSUS REPOR T RECOM MENDA TIONS FOR LDL: ADULT CHILD LOW RISK <130 <110 (OPTI MAL LDL) <100 ----- BORDE RLINE : 130-1 59 ----- HIGH RISK: >160 >130 A TRIGL YCERI DE RESUL T >400 INVAL IDATE S THE CALCU LATIO N FOR LDL FRACT IONAT ION - THE LDL RESUL T WILL NOT BE REPOR BETO. Not Available [facility] (Lab) [address] [place], [address], 01/21/2023 21:07:35 01/22/20 23 01/21/2023 HEPAT IC/LI CODEY PANEL alkaline phosphatase 48 U/L 38-126 Not Available [facility] (Lab) [address] [place], [address], 01/21/2023 21:05:28 01/22/20 23 01/21/2023 HEPAT IC/LI CODEY PANEL alanine aminotransfe rase 31 U/L 0-35 Not Available [facility] (Lab) [address] [place], [address], 01/21/2023 21:05:28 01/22/20 23 01/21/2023 HEPAT IC/LI CODEY PANEL aspartate aminotransfe rase 34 U/L 15-37 Not Available [facility] (Lab) [address] [place], [address], 01/21/2023 21:05:28 01/22/20 23 01/21/2023 HEPAT IC/LI CODEY PANEL bilirubin, total 0.60 mg/dL 0.20-1 .30 Not Available [facility] (Lab) [address] [place], [address], 01/21/2023 21:05:28 01/22/20 23 01/21/2023 HEPAT IC/LI CODEY PANEL bilirubin, conjugated (direct) 0.00 mg/dL 0.00-0 .30 Not Available [facility] (Lab) [address] [place], [address], 01/21/2023 21:05:28 01/22/2001/21/2023 HEPAT IC/LI CODEY PANEL biliurubin,u ncong. (indirect) 0.30 mg/dL 0.00-1 .1 Not Available [facility] (Lab) [address] [place], [address], 01/21/2023 21:05:28 01/22/20 23 01/21/2023 HEPAT IC/LI CODEY PANEL total protein 7.4 g/dL 6.3-8. 2 Not Available [facility] (Lab) [address] [place], [address], 01/21/2023 21:05:28 01/22/20 23 01/21/2023 HEPAT IC/LI CODEY PANEL albumin 4.7 g/dL 3.0-4. 4 high Not Available [facility] (Lab) [address] [place], [address], 01/21/2023 21:05:28 01/22/20 23 01/21/2023 HEPAT IC/LI CODEY PANEL globulin 2.7 g/dL 2.6-4. 2 Not Available [facility] (Lab) [address] [place], [address], 01/21/2023 21:05:28 01/22/20 23 01/21/2023 HEPAT IC/LI CODEY PANEL A/G ratio 1.7 ratio 1.0-2. 0 Not Available [facility] (Lab) [address] [place], [address], 01/21/2023 21:05:28 01/22/20 23 01/21/2023 VITAM IN D 25-HY DROXY [id number] 51.7 NG/mL 30-100 Vitam in D Statu s: Defic ient: <20 ng/mL Insuf ficie nt: 20-29 ng/mL Suffi cient : 30-10 0 ng/mL Not Available [facility] (Lab) [address], [place], [address], 01/21/2023 21:13:35 03/02/20 24 03/03/2024 CBC WITH DIFFE RENTI AL/PL ATELE T WBC 2.7 x10e3 /uL 3.4-10 .8 below low normal Not Available [facility] [address] [facility], [place], [address], 03/03/2024 07:13:40 03/02/20 24 03/03/2024 CBC WITH DIFFE RENTI AL/PL ATELE T RBC 4.39 x10e6 /uL 3.77-5 .28 Not Available [facility]) [address] [place], [address], 03/03/2024 07:13:40 03/02/20 24 03/03/2024 CBC WITH DIFFE RENTI AL/PL ATELE T hemoglobin 13.3 g/dL 11.1-1 5.9 Not Available [facility]) [address] [place], [address], 03/03/2024 07:13:40 03/02/20 24 03/03/2024 CBC WITH DIFFE RENTI AL/PL ATELE T hematocrit 40.6 % 34.0-4 6.6 Not Available [facility]) [address] [place], [address], 03/03/2024 07:13:40 03/02/20 24 03/03/2024 CBC WITH DIFFE RENTI AL/PL ATELE T MCV 93 fL 79-97 Not Available [facility]) [address] [place], [address], 03/03/2024 07:13:40 03/02/20 24 03/03/2024 CBC WITH DIFFE RENTI AL/PL ATELE T MCH 30.3 pg 26.6-3 3.0 Not Available [facility]) [address] [facility], [place], [address], 03/03/2024 07:13:40 03/02/20 24 03/03/2024 CBC WITH DIFFE RENTI AL/PL ATELE T MCHC 32.8 g/dL 31.5-3 5.7 Not Available [facility]) [address] [facility], [place], [address], 03/03/2024 07:13:40 03/02/20 24 03/03/2024 CBC WITH DIFFE RENTI AL/PL ATELE T RDW 13.3 % 11.7-1 5.4 Not Available [facility]) [address] [facility], [place], [address], 03/03/2024 07:13:40 03/02/20 24 03/03/2024 CBC WITH DIFFE RENTI AL/PL ATELE T platelets 212 x10e3 /uL 150-45 0 Not Available [facility] [address] [facility], [place], [address], 03/03/2024 07:13:40 03/02/20 24 03/03/2024 CBC WITH DIFFE RENTI AL/PL ATELE T neutrophils 79 % not estab. Not Available [facility]) [address] [facility], [place], [address], 03/03/2024 07:13:40 03/02/20 24 03/03/2024 CBC WITH DIFFE RENTI AL/PL ATELE T lymphs 12 % not estab. Not Available [facility] [address] [place], [address], 03/03/2024 07:13:40 03/02/20 24 03/03/2024 CBC WITH DIFFE RENTI AL/PL ATELE T monocytes 7 % not estab. Not Available [facility] [address] [place], [address], 03/03/2024 07:13:40 03/02/20 24 03/03/2024 CBC WITH DIFFE RENTI AL/PL ATELE T eos 1 % not estab. Not Available [facility]) [address] [facility], [place], [address], 03/03/2024 07:13:40 03/02/20 24 03/03/2024 CBC WITH DIFFE RENTI AL/PL ATELE T basos 1 % not estab. Not Available [facility] [address] [place], [address], 03/03/2024 07:13:40 03/02/20 24 03/03/2024 CBC WITH DIFFE RENTI AL/PL ATELE T immature cells [employer] Not Available [facility]) [address] [place], [address], 03/03/2024 07:13:40 03/02/20 24 03/03/2024 CBC WITH DIFFE RENTI AL/PL ATELE T neutrophils (absolute) 2.2 x10e3 /uL 1.4-7. 0 Not Available [facility] [address] [place], [address], 03/03/2024 07:13:40 03/02/20 24 03/03/2024 CBC WITH DIFFE RENTI AL/PL ATELE T lymphs (absolute) 0.3 x10e3 /uL 0.7-3. 1 below low normal Not Available [facility] [address] [place], [address], 03/03/2024 07:13:40 03/02/20 24 03/03/2024 CBC WITH DIFFE RENTI AL/PL ATELE T monocytes(ab solute) 0.2 x10e3 /uL 0.1-0. 9 Not Available [facility]) [address] [place], [address], 03/03/2024 07:13:40 03/02/20 24 03/03/2024 CBC WITH DIFFE RENTI AL/PL ATELE T eos (absolute) 0.0 x10e3 /uL 0.0-0. 4 Not Available [facility]) [address] [facility], [place], [address], 03/03/2024 07:13:40 03/02/20 24 03/03/2024 CBC WITH DIFFE RENTI AL/PL ATELE T baso (absolute) 0.0 x10e3 /uL 0.0-0. 2 Not Available [facility] [address] [facility], [place], [address], 03/03/2024 07:13:40 03/02/20 24 03/03/2024 CBC WITH DIFFE RENTI AL/PL ATELE T immature granulocytes 0 % not estab. Not Available [facility] [address] [facility], [place], [address], 03/03/2024 07:13:40 03/02/20 24 03/03/2024 CBC WITH DIFFE RENTI AL/PL ATELE T immature grans (abs) 0.0 x10e3 /uL 0.0-0. 1 Not Available [facility]) [address] [facility], [place], [address], 03/03/2024 07:13:40 03/02/20 24 03/03/2024 CBC WITH DIFFE RENTI AL/PL ATELE T NRBC [employer] Not Available [facility] [address] [facility], [place], [address], 03/03/2024 07:13:40 03/02/20 24 03/03/2024 CBC WITH DIFFE RENTI AL/PL ATELE T hematology comments: [employer] Not Available [facility] [address] [facility], [place], [address], 03/03/2024 07:13:40 03/02/20 24 03/03/2024 BASIC METAB OLIC PANEL (8) glucose 82 mg/dL 70-99 Not Available [facility]) [address] [place], [address], 03/03/2024 07:13:42 03/02/20 24 03/03/2024 BASIC METAB OLIC PANEL (8) BUN 24 mg/dL 8-27 Not Available [facility] [address] [place], [address], 03/03/2024 07:13:42 03/02/20 24 03/03/2024 BASIC METAB OLIC PANEL (8) creatinine 0.96 mg/dL 0.57-1 .00 Not Available [facility]) [address] [place], [address], 03/03/2024 07:13:42 03/02/20 24 03/03/2024 BASIC METAB OLIC PANEL (8) eGFR 64 mL/mi n/1.7 3 >59 Not Available [facility]) [address] [place], [address], 03/03/2024 07:13:42 03/02/20 24 03/03/2024 BASIC METAB OLIC PANEL (8) BUN/creatini ne ratio 25 12-28 Not Available [facility] [address] [place], [address], 03/03/2024 07:13:42 03/02/20 24 03/03/2024 BASIC METAB OLIC PANEL (8) sodium 141 mmol/ L 134-14 4 Not Available [facility] [address] [place], [address], 03/03/2024 07:13:42 03/02/20 24 03/03/2024 BASIC METAB OLIC PANEL (8) potassium 4.1 mmol/ L 3.5-5. 2 Not Available [facility] [address] [place], [address], 03/03/2024 07:13:42 03/02/20 24 03/03/2024 BASIC METAB OLIC PANEL (8) chloride 102 mmol/ L 96-106 Not Available [facility] [address] [place], [address], 03/03/2024 07:13:42 03/02/20 24 03/03/2024 BASIC METAB OLIC PANEL (8) carbon dioxide, total 25 mmol/ L 20-29 Not Available [facility] [address] [place], [address], 03/03/2024 07:13:42 03/02/20 24 03/03/2024 BASIC METAB OLIC PANEL (8) calcium 10.1 mg/dL 8.7-10 .3 Not Available [facility] [address] [place], [address], 03/03/2024 07:13:42 03/02/20 24 03/03/2024 LIPID PANEL cholesterol, total 256 mg/dL 100-19 9 above high normal Not Available [facility] [address] [place], [address], 03/03/2024 07:13:43 03/02/20 24 03/03/2024 LIPID PANEL triglyceride s 65 mg/dL 0-149 Not Available [facility] [address] [place], [address], 03/03/2024 07:13:43 03/02/20 24 03/03/2024 LIPID PANEL HDL cholesterol 99 mg/dL >39 Not Available [facility] [address] [place], [address], 03/03/2024 07:13:43 03/02/20 24 03/03/2024 LIPID PANEL VLDL cholesterol trace 10 mg/dL 5-40 Not Available [facility] [address] [place], [address], 03/03/2024 07:13:43 03/02/20 24 03/03/2024 LIPID PANEL LDL chol calc ([facility]) 147 mg/dL 0-99 above high normal Not Available [facility]) [address] [facility], [place], [address], 03/03/2024 07:13:43 03/02/20 24 03/03/2024 LIPID PANEL comment: [employer] Not Available [facility] [address] [facility], [place], [address], 03/03/2024 07:13:43 03/02/20 24 03/03/2024 HEPAT IC FUNCT ION PANEL (7) protein, total 6.8 g/dL 6.0-8. 5 Not Available [facility] [address] [place], [address], 03/03/2024 07:13:44 03/02/20 24 03/03/2024 HEPAT IC FUNCT ION PANEL (7) albumin 4.6 g/dL 3.9-4. 9 Not Available [facility] [address] [place], [address], 03/03/2024 07:13:44 03/02/20 24 03/03/2024 HEPAT IC FUNCT ION PANEL (7) bilirubin, total 0.5 mg/dL 0.0-1. 2 Not Available [facility] [address] [place], [address], 03/03/2024 07:13:44 03/02/20 24 03/03/2024 HEPAT IC FUNCT ION PANEL (7) bilirubin, direct 0.14 mg/dL 0.00-0 .40 Not Available [facility]) [address] [facility], [place], [address], 03/03/2024 07:13:44 03/02/20 24 03/03/2024 HEPAT IC FUNCT ION PANEL (7) alkaline phosphatase 51 IU/L 44-121 Not Available [facility] [address] [facility] [place], [address], 03/03/2024 07:13:44 03/02/20 24 03/03/2024 HEPAT IC FUNCT ION PANEL (7) AST (SGOT) 29 IU/L 0-40 Not Available [facility] [address] [facility] [place], [address], 03/03/2024 07:13:44 03/02/20 24 03/03/2024 HEPAT IC FUNCT ION PANEL (7) ALT (SGPT) 25 IU/L 0-32 Not Available [facility] [address] [facility], [place], [address], 03/03/2024 07:13:44 03/02/20 24 03/03/2024 VITAM IN D, 25-HY DROXY vitamin D, 25-hydroxy 73.0 NG/mL 30.0-1 00.0 Vitam in D defic iency has been defin ed by the Insti tute of Medic ine and an Endoc rine Socie ty pract ice guide line as a level of serum 25-OH vitam in D less than 20 ng/mL (1,2) . The Endoc rine Socie ty went on to furth er defin e vitam in D insuf ficie ncy as a level betwe en 21 and 29 ng/mL (2). 1. IOM (Inst itute of Medic ine). 2010. Dieta ry refer ence intak es for calci um and D. Ronak mccain [place]: [facility] . 2. Ashwin rogel MF, Stanley grossman [place], Javon off-F errar i PABON, et al. Evalu ation , treat ment, and preve ntion of vitam in D defic iency : an Endoc rine Socie ty clini trace pract ice guide line. JCEM. 2010; 96(7) :1911 -30. Not Available [facility]) [address] [facility], [place], [address], 03/03/2024 07:13:45 03/02/20 24 03/02/2024 AMBIG ABBRE V BMP8 DEFAU LT ambig abbrev BMP8 default Commen t A hand- writt en panel /prof ile was recei ivonne from your offic e. In accor dance with the [facility] Ambig uous Test Code [facility] y dated April 2003, we have compl eted your order by using the close st curre ntly or forme rly recog nized AMA panel . We have assvielka melgar Basic Metab olic Panel (8), Test Code #[address]. If this is not the testi ng you wishe d to recei ve on this speci men, pleas e conta ct the [facility] Clien t Inqui ry/Te chnic al Servi joyce Depar tment to christine fy the test order . We appre ciate your busin ess. Not Available [facility]) [address], [place], [address], 03/03/2024 07:13:46 03/02/20 24 03/02/2024 AMBIG ABBRE V LP DEFAU LT ambig abbrev LP default COMMEN T A hand- writt en panel /prof ile was recei ivonne from your offic e. In accor dance with the [facility] Ambig uous Test Code Polic y dated April 2003, we have compl eted your order by using the close st curre ntly or forme rly recog nized AMA panel . We have giuseppe melgar Lipid Panel , Test Code #[address]. If this is not the testi ng you wishe d to recei ve on this speci men, pleas e conta ct the [facility] Clien t Inqui ry/Te chnic al Servi joyce Depar tment to christine fy the test order . We appre ciate your busin ess. Not Available [facility] ([facility]) [address], [place], [address], 03/03/2024 07:13:46 03/02/20 24 03/02/2024 AMBIG ABBRE V HFP7 DEFAU LT ambig abbrev hfp7 default Commen t A hand- writt en panel /prof ile was recei ivonne from your offic e. In accor dance with the [facility] Ana uous Test Code Polic y dated April 2003, we have compl eted your order by using the close st curre ntly or forme rly recog nized AMA panel . We have assig ramón Hepat ic Funct ion Panel (7), Test Code #[address]. If this is not the testi ng you wishe d to recei ve on this speci men, pleas e conta ct the [facility] Clien t Inqui ry/Te chnic al Servi joyce Depar tment to christine fy the test order . We appre ciate your busin ess. Not Available [facility] ([facility]) [address], [place], [address], 03/03/2024 07:13:47 09/30/20 21 09/30/2021 MAMMO , scree teri, bilat eral No observ ation record ed. [id number] [facility] [address], [place], [address], 12/17/2022 03:14:59 02/07/20 23 12/16/2022 mammo gram, follo w up* No observ ation record ed. [email or web address] [facility] [address], [place], [address], 02/09/2023 08:01:50 02/13/20 23 02/12/2023 MAMMO , diagn ostic , digit al, unila teral No observ ation record ed. [address], [place], [address], 02/12/2023 18:11:32 02/13/20 23 02/12/2023 MAMMO , diagn ostic , digit al, unila teral No observ ation record ed. [address], [place], [address], 02/12/2023 18:11:11 02/13/20 23 02/12/2023 MAMMO , diagn ostic , digit al, unila teral No observ ation record ed. [email or web address] [facility] [address], [place], [address], 03/24/2023 11:07:27 04/02/20 23 04/02/2023 mammo gram, follo w up* No observ ation record ed. [address], [place], [address], 04/03/2023 11:09:18 04/02/20 23 04/02/2023 US, nubia t, bilat eral No observ ation record ed. [address], [place], [address], 04/15/2023 10:02:20 04/10/20 23 04/09/2023 DEXA No observ ation record ed. [facility] [address], [place], [address], 04/15/2023 11:03:04 06/06/20 23 05/29/2023 MRI, breas t, bilat eral, w/ contr ast No observ ation record ed. [address], [place], [address], 06/08/2023 08:49:16 07/09/20 23 07/09/2023 XR, alvin nce No observ ation record ed. [address], [place], [address], 02/29/2024 12:20:07 07/09/20 23 07/09/2023 senti dana node injec tion (PROC ) No observ ation record ed. [address], [place], [address], 02/29/2024 12:21:55 07/09/20 23 07/09/2023 XR, chest No observ ation record ed. [address], [place], [address], 02/29/2024 12:22:18 10/30/19 24 10/29/2023 MAMMO , diagn ostic , digit al, unila teral No observ ation record ed. [address] [facility] [address], [place], [address], 02/27/2024 07:36:17 12/08/19 24 12/07/2023 MRI, breas t, bilat eral, w/ contr ast No observ ation record ed. [address], [place], [address], 01/25/2024 08:12:21 12/31/19 24 12/31/2023 MAMMO , scree teri, digit al, bilat eral No observ ation record ed. [address] [facility] [address], [place], [address], 01/25/2024 08:11:51 Result Notes None recorded. Problems Name Problem SNOMED Code Status Onset Date Resolution Date Notes Provider Name and Address Organization Details Recorded Time Mammography abnormal 777757387 Active 2022 Lis Donis MD [address] [place] [address] [address], [address], [place], [address] , [place] [facility] 3 08:10:32 Vitamin D deficiency 64249875 Active 2022 Lis Donis MD [address] [facility], [address], [address] , [facility] [employer] [facility] [employer] [facility] 3 12:30:38 Hyperlipidemi a 11973935 Active 2022 Lis Donis MD [address], [address] , [facility] [employer] [facility] [employer] [facility] 3 12:30:52 Leukopenia 73743080 Active 2022 Lis Donis MD [address] [facility], [address], [address] , [facility] [employer] [facility] [employer] [facility] 3 12:35:40 Bilateral hearing loss 66675816 Active 2019 Not Available [facility] 02:57:02 Osteopenia 701855649 Active 2022 dexa 03/2023 Lis Donis MD [address] [facility], [address], [address] , [facility] [employer] [facility] [employer] [facility] 3 10:03:48 Problem Notes None recorded. Procedures Surgical History Date Name Laterality Status Provider Name and Address Organization Details Recorded Time 01/25/20 24 Medicare Wellness CPT Code, subsequent completed Sherrie Downs RN [facility] [employer] [facility] 01/25/2024 08:02:36 01/22/20 23 Medicare Wellness CPT Code, subsequent completed Socorro Luo RN [facility] [employer] [facility] 01/20/2023 12:14:41 10/15/20 17 colonoscopy completed Not Available [facility] 12/18/19 02:46:50 ligation of bilateral fallopian tubes completed Not Available [facility] 12/17/2022 02:46:50 procedure on urinary bladder completed Not Available [facility] 12/17/2022 02:46:50 Imaging Results Imaging Date Name Status LastModified by [facility] Details LastModified Time 09/30/2021 MAMMO, screening, bilateral completed [id number], [address], 12/17/2022 03:14:59 12/16/2022 mammogram, follow up* completed [address], [place], [address], 02/09/2023 08:01:50 02/12/2023 MAMMO, diagnostic, digital, unilateral completed [address], [place], [address], 02/12/2023 18:11:32 02/12/2023 MAMMO, diagnostic, digital, unilateral completed [address], [place], [address], 02/12/2023 18:11:11 02/12/2023 MAMMO, diagnostic, digital, unilateral completed [address], [place], [address], 03/24/2023 11:07:27 04/02/2023 mammogram, follow up* completed [address] [facility], [place], [address], 04/03/2023 11:09:18 04/02/2023 US, breast, bilateral completed [address], [place], [address], 04/15/2023 10:02:20 04/09/2023 DEXA completed [address], [place], [address], 04/15/2023 11:03:04 05/29/2023 MRI, breast, bilateral, w/ contrast completed [address], [place], [address], 06/08/2023 08:49:16 07/09/2023 XR, guidance completed [address], [place], [address], 02/29/2024 12:20:07 07/09/2023 sentinel node injection (PROC) completed [address], [place], [address], 02/29/2024 12:21:55 07/09/2023 XR, chest completed [address] [facility], [place], [address], 02/29/2024 12:22:18 10/29/2023 MAMMO, diagnostic, digital, unilateral completed [address], [place], [address], 02/27/2024 07:36:17 12/07/2023 MRI, breast, bilateral, w/ contrast completed [address] [facility], [place], [address], 01/25/2024 08:12:21 12/31/2023 MAMMO, screening, digital, bilateral completed [address], [place], [address], 01/25/2024 08:11:51 Procedure Notes None recorded. Medical Equipment None Reported. Allergies No known drug allergies Medications Name Sig Start Date Stop Date Status Note LastModified by Organization Details LastModified Time tramadol 50 mg tablet TAKE 1 TABLET BY MOUTH EVERY 6 HOURS NEEDED FOR PAIN active Not Available Not Available No t Available ondansetron 8 mg disintegrat ing tablet DISSOLVE ONE TABLET ON THE TONGUE AND SWALLOW EVERY 8 HOURS NEEDED FOR NAUSEA OR VOMITING 01/24 completed Not Available Not Available Not Available lidocaine-p rilocaine 2.5 %-2.5 % topical cream APPLY TO THE AFFECTED AREA DIRECTED 01/24 completed Not Available Not Available Not Available dexamethaso ne 4 mg tablet TAKE 1 TABLET BY MOUTH TWICE DAILY DAY PRIOR AND DAY OF AND DAY AFTER TREATMENT 01/24 completed Not Available Not Available Not Available Prevnar 13 (PF) 0.5 mL intramuscul ar syringe ADM 0.5ML IM UTD active Not Available Not Available No t Available Fluzone High-Dose 2019-20 (PF) 180 mcg/0.5 mL intramuscul ar syringe ADM 0.5ML IM UTD active Not Available Not Available No t Available BinaxNOW COVID-19 Ag Self Test kit TEST DIRECTED TODAY active Not Available Not Available No t Available Vitals Date Recorded Body weight Body mass index (BMI) Body height Body temperature Heart rate Oxygen saturation Oxygen saturation in Arterial blood by Pulse oximetry Systolic blood pressure Diastolic blood pressure Provider Name and Address Organization Details Last Updated DateTime 3 15597.2 7 g 19.7 kg/m2 167.64 cm 97.6 [degF] 72 /min 98 % 98 % 120 mm[Hg] 68 mm[Hg] Cleopatra Fu CMA [facility] [employer] [facility] 3 12:07:29 Date Recorded Body weight Heart rate Oxygen saturation Oxygen saturation in Arterial blood by Pulse oximetry Systolic blood pressure Diastolic blood pressure Provider Name and Address Organization Details Last Updated DateTime 4 71306.5 3 g 96 /min 96 % 96 % 124 mm[Hg] 80 mm[Hg] Sherrie Downs RN [facility] 4 08:05:19 Date Recorded Body temperature Provider Name a sd Address Organization Details Last Updated DateTime 01/25/2024 97.6 [degF] Lis Donis MD [address] [facility], [facility] [address], [place], [address], [facility] [employer] [facility] 01/25/2024 08:09:23 Date Recorded Body mass index (BMI) Body height Oxygen saturation Oxygen saturation in Arterial blood by Pulse oximetry Oxygen saturation Oxygen saturation in Arterial blood by Pulse oximetry Heart rate Heart rate Body temperature Body temperature Body weight Body weight Systolic blood pressure Diastolic blood pressure Systolic blood pressure Diastolic blood pressure Provider Name and Address Organization Details Last Updated DateTime 3 19.7 kg/m2 167.64 cm 98 % 98 % 97 % 97 % 66 /min 74 /min 97 [degF] 97 [degF] 78585.0 8 g 09778.2 7 g 102 mm[Hg] 68 mm[Hg] 100 mm[Hg] 70 mm[Hg] Not Available [employer] 02:53:49 Social History Question Answer Notes LastModified by Organization Details LastModified Time Tobacco Smoking Status Never Smoker [employer] [facility] 01/21/2023 12:01:28 Do You Have An Advance Directive? Yes [email or web address] Information not available 01/21/2023 What Is Your Level Of Alcohol Consumption? Occasional Social Drinking On Holidays And Vacations Information not available 01/20/2023 Are You Blind Or Do You Have Difficulty Seeing? No Information not available 01/21/2023 What Is Your Level Of Caffeine Consumption? Moderate [id number] Information not available 12/17/2022 How Much Tobacco Do You Chew? None [id number] Information not available 12/17/2022 In The 14 Days Before Symptom Onset, Have You Had Close Contact With A Laboratory-conf irmed COVID-19 While That Case Was Ill? No Information not available 01/21/2023 In The 14 Days Before Symptom Onset, Have You Had Close Contact With A Person Who Is Under Investigation For COVID-19 While That Person Was Ill? No Information not available 01/21/2023 Are You Deaf Or Do You Have Serious Difficulty Hearing? Yes Patient Wears Hearing Aids. [email or web address] Information not available 01/21/2023 What Type Of Diet Are You Following? REGULAR [id number] Information not available 12/17/2022 Which Illicit Or Recreational Drugs Have You Used? None Information not available 01/21/2023 Do You Or Have You Ever Used E-cigarettes Or Vape? Never Used Electronic Cigarettes Information not available 01/21/2023 What Is Your Occupation? Retired [email or web address] Information not available 01/21/2023 Have There Been Any Changes To Your Family Or Social Situation? No [email or web address] Information not available 01/21/2023 Do You Use Insect Repellent Routinely? Yes [email or web address] Information not available 01/21/2023 Where Do You Live? SingleLevelHouse With Basement [email or web address] Information not available 01/21/2023 Presence Of Domestic Violence No Information not available 01/20/2023 Are You Able To Care For Yourself? Yes Information not available 01/20/2023 Are You Blind Or Do Yo Have Difficulty Seeing? No Information not available 01/20/2023 Are You Deaf Or Do You Have Serious Difficulty Hearing? Yes Patient Wears Hearing Aids. Information not available 01/20/2023 General Stress Level? Low Information not available 01/20/2023 Live Alone Of With Others? With Others Information not available 01/20/2023 What Was The Date Of Your Most Recent Tobacco Screening? 01/25/2024 Information not available 01/25/2024 Do You Have Smoke And Carbon Monoxide Detectors In Your Home? Yes [email or web address] Information not available 01/21/2023 Do You Or Have You Ever Used Smokeless Tobacco? Never Used Smokeless Tobacco [id number] Information not available 12/17/2022 Do You Use Any Illicit Or Recreational Drugs? No Information not available 01/21/2023 Do You Use Sunscreen Routinely? Yes [email or web address] Information not available 01/21/2023 Has Tobacco Cessation Counseling Been Provided? No [email or web address] Information not available 01/21/2023 Do You Have Any Dietary Restrictions? No Information not available 01/21/2023 Sex: Unknown Functional Status Question Answer Note LastModified by Organizat ion Details LastModified Time Do you have difficulty walking or climbing stairs? No Information not available 01/21/2023 Do you have transportation difficulties? No [email or web address] Information not available 01/21/2023 Are you able to walk? YESWOREST [email or web address] Information not available 01/21/2023 Do you have difficulty doing errands alone? No [email or web address] Information not available 01/21/2023 Are you able to care for yourself? Yes [email or web address] Information not available 01/21/2023 Do you have difficulty dressing or bathing? No [email or web address] Information not available 01/21/2023 Mental Status Question Answer Note LastModified by Organization D etails LastModified Time Do you have difficulty concentrating, remembering or making decisions? No [email or web address] Information no t available 01/21/2023 Family History Relationship Description Onset Age of this Age Resolved Age Notes LastModified by Organization Details LastModified Time Mother Hypertensive disorder [id number] Not available 12/17/2022 02:46:58 Father Fibrosis of lung Pulmon clemente fibros is Not available 01/25/2024 08:19:18 Brother Malignant tumor of oral cavity [email or web address] Not available 05/2024 08:02:12 Medical History Condition Response BLINDNESS N RHEUMATIC FEVER N KIDNEY STONES N BLADDER PROBLEMS N OTHER # 1 N POLIO N LUNG DISEASE/DISORDER N RADIATION / CHEMOTHERAPY N COPD N Other # 2 N BLOOD DISEASES N SURGERY N EAR OR HEARING PROBLEMS N MUMPS N FEMALE PROBLEMS / INFECTIONS N BOWEL PROBLEMS N DEPRESSION (INCLUDING POST ) N STROKE/TIA N THYROID DISEASE N ULCERS N BENIGN PROSTATIC HYPERPLASIA N MEASLES N CERVICALGIA N TB SKIN TEST N MYOCARDIAL INFARCTION N PARAPELGIA N OBESITY N GERD/NAUSEA N ANEURYSM N URINARY/BLADDER/KIDNEY PROBLEMS N INPATIENT PSYCH CARE N CORONARY ARTERY DISEASE (CAD) N MENIERE'S DISEASE N ADDICTION CONCERNS N ENDOMETRIOSIS N USE OF BLOOD THINNERS N SKIN PROBLEMS N EMPHYSEMA N GASTROINTESTINAL DISORDER N MUSCLE,JOINT OR BONE PROBLEMS N GASTROINTESTINAL BLEEDING N BLOOD CLOTS N ASTHMA N CATARACTS N ERECTILE DYSFUNCTION N GI PROBLEMS N CHF N Low Testosterone N NEUROPATHY N INFERTILITY N AIDS/HIV N FRACTURES N VISION/EYE PROBLEMS N LIVER DISEASE N MALE HYPOGONADISM N HYPERTENSION N ANXIETY DISORDER N BLOOD TRANSFUSION N ANEMIA/BLOOD DISORDER N CHRONIC EAR INFECTIONS N BRONCHITIS N TUBERCULOSIS N GLAUCOMA N FOOT PROBLEM N DIVERTICULITIS N SLEEP APNEA N CHICKENPOX N ALLERGIES/HAYFEVER N INFECTIOUS DISEASE N PROSTATE N HEART ARRHYTHMIA N INSOMNIA N HIGH CHOLESTEROL / HYPERLIPIDEMIA N EYE PROBLEMS N HYPERTHYROIDISM N EATING DISORDER N NEUROLOGICAL PROBLEMS N EDEMA N CHRONIC PAIN SYNDROME N HYPOTHYROIDISM N CONSTIPATION N CAROTID BLOCKAGE N BACK / NECK PROBLEMS N HAVE YOU BEEN HOSPITALIZED OR SEEN IN [facility] IN THE PAST YEAR ? N ATHEROSCLEROSIS N BREAST PROBLEMS N DIALYSIS N ECZEMA N FIBROMYALGIA N OSTEOPOROSIS N ARTHRITIS N NO SIGNIFICANT PAST MEDICAL HISTORY N APPENDICITIS N DIABETES, TYPE N BAD TEETH N HEARTBURN / REFLUX N ADD/ADHD N AUTISM SPECTRUM DISORDER (ASD) N HEPATITIS / LIVER DISEASE N PULMONARY DISEASE N GOUT N SLEEP DISORDER N ALZHEIMER'S DISEASE N PAIN N DEMENTIA N HERPES N SEIZURES/EPILEPSY N HEADACHES/MIGRAINES N VASCULAR DISEASE N PACEMAKER N DIZZINESS N HEART DISEASE/HEART PROBLEMS N KIDNEY DISEASE N SCARLET FEVER N MULTIPLE SCLEROSIS N DEVELOPMENTAL OR BEHAVIORAL DISORDERS N MENTAL DISORDER/ILLNESS N CANCER: SPECIFY N CARDIAC ARRHYTHMIA N PNEUMONIA N ANESTHESIA COMPLICATIONS N ATRIAL FIBRILLATION N PULMONARY EMBOLISM N AUTOIMMUNE DISEASE N Gynecological HistoryNo gynecological history recorded. Obstetrics History GPAL:G 0 P 0 0 0 0 Immunizations Vaccine Type Date Status Note Provider Nam e and Address Organization Details Recorded Time COVID-19, mRNA, LNP-S, PF, 30 mcg/0.3 mL dose 1 completed Not Available [facility] 12/17/2022 03:13:57 COVID-19, mRNA, LNP-S, PF, 30 mcg/0.3 mL dose 1 completed Not Available [facility] 12/17/2022 03:13:58 Pneumococcal conjugate PCV 13 9 completed Not Available [facility] 12/17/2022 03:13:58 pneumococcal polysaccharide PPV23 0 completed Not Available [facility] 12/17/2022 03:13:58 Past Encounters Encounter ID Performer Location Encounter Start Date Encounter Closed Date Diagnosis/Indication Diagnosis SNOMED-CT Code Diagnosis ICD10 Code Diagnosis Note [id number] [facility] [address] [place] [id number] 12/27/2020 00:00:00 01/15/2021 16:24:06 [id number] [facility] [address] [place] [id number] 12/30/2021 00:00:00 12/30/2021 09:08:23 [id number] Lis Donis MD [facility] [address] [place] [address] [address] [place] [id number] 01/21/2023 12:00:20 01/21/2023 12:49:06 Adult health examination 183264727 Z00.00 Z13.1 DEXA ordered Screening for disorder 039000468 Z13.9 Postmenopausal state 764 02208 Z78.0 Vitamin D deficiency 347 16827 E55.9 Hyperlipidemia 97888768 E78.5 Z79.574 [id number] Lis Donis MD [facility] Primary Care [facility] jean carlos [address] [place] [address] [address] [id number] 01/25/2024 08:00:05 01/25/2024 08:32:29 Adult health examination 485490250 Z00.00 Z13.1 DEXA repeat due 04/12Mammog mt repeat due 01/10Prevna r 13 done 2018Pneumo vax 23 done 2019Shingr ix series 11/10 and 01/08Contin ue flu vaccine yearlyCovi d booster per cdc guidelines Recommend prevnar 20Check fasting labsColono scopy 2017 repeat 2026 Screening for disorder 173581368 Z13.9 Vitamin D deficiency 347 95241 E55.9 Hyperlipidemia 83575281 E78.5 Z79.899 Osteopenia 451533932 M85 .80 continue daily walkingcal cium + D bidrepeat dexa 2024 Screening for malignant neoplasm of breast 603303192 Z12.39 left breastlobu lar carcinomas /p excision 05/10s/p chemo and radiationm ammogram/M RI 01/09 normal, repeat imaging in [address] [facility] Concerns Section Related Observation LastModified by Organization Detai ls LastModified Time None Recorded Concern Status LastModified by Organization Details LastModified Time None Recorded Advance Directives Directive Y: Payers Encounter Date Sequence Insurance Name Policy Number Policy Michael Covered Member ID Michael Member ID Guarantor Name 01/21/2023 1 [employer] (MEDICARE REPLACEMENT/AD VANTAGE - PPO) Aggie Suzi [id number] Aggie I Suzi 01/25/2024 1 [employer] (MEDICARE REPLACEMENT HMO) [id number] Aggie I Suzi [id number] Aggie I Suzi Notes Date Note Type Note Provider Name and Address Organization Details Recorded Time 01/21/2023 text/html here for wellness exam. no chest pain, no sob Lis Donis MD [address], [place], [address], [employer] 02/13/2023 17:41:43 01/25/2024 text/html Here for wellness exam. Has completed her chemo and radiation for left breast cancer, port a cath removed. Feeling well. No chest pain or sob, appetite is good Lis Donis MD [address], [address], [place], [address], [facility] 01/25/2024 08:36:50 OBGyn Episode No OBEpisode recorded.
== END 2024-12-05 12:42 | disposition home or self-care (01) ==
PROVIDERS: Visit Provider Surgery
DX: C50.412 Malignant neoplasm of upper-outer quadrant of left female breast (principal)
CPT/HCPCS: 77049; A9577; C8908

== ENCOUNTER 2025-05-11 12:16 | Outpatient (CLI) | payer MEDICARE, SELFPAY ==
--- NOTE | ~2025-05-11 | MM_ITS ---
EXAMINATION: MM screening [facility] BI w nupur INDICATION: Asymptomatic, referred for screening mammogram. Prior history of left breast cancer statu s post left lumpectomy 2022. COMPARISON: 03/28/2024 through 12/16/2022 TECHNIQUE: Digital Breast Tomosynthesis CC, MLO views of Both breasts were obtained with computer-ai ded detection to assist in interpretation of the study. FINDINGS: The breasts are extremely dense, which lowers the sensitivity of mammography. 2 new groups of pleomorphic calcifications that spans 1.3 cm and 0.8 cm respectively have developed a t posterior depth in the superior medial location within the left breast. The 2 groups of calcificati on are by 7 mm of tissue. The larger group is associated with background focal asymmetry. No other focal dominant mass, architectural distortion, or suspicious microcalcifications are identif ied. IMPRESSION: 1. Left breast Incompletely characterized groups of calcifications. 2. No evidence of malignancy in the Right breast. RECOMMENDATION: Left breast Diagnostic mammogram with true lateral, and appropriate magnification views. BI-RADS Category 0: Incomplete: Needs additional imaging evaluation. Reviewed, dictated and finalized at location B. IMPRESSION: 1. Left breast Incompletely characterized groups of calcifications. 2. No evidence of malignancy in the Right breast. RECOMMENDATION: Left breast Diagnostic mammogram with true lateral, and appropriate magnificati on views. BI-RADS Category 0: Incomplete: Needs additional imaging evaluation.
--- OUTSIDE RECORDS SUMMARY | 2025-05-11 12:21 | XMS_ITS | Continuity of Care Document ---
Author Organization [facility] Address [address] [place] [address] [address] [place] [address] Phone Care Team Providers Care Flag Car Driver Name Role Phone Pablo Naqvi Unavailable Unavailable Procedures Procedure Date Eye Exam & Treatment Refraction Eye Exam & Treatment Refraction Advance Directives Directive Yes / No Effective Date File Name No Information Encounters Encounter Description Practice Location Reason(s) For Visit Diagnoses Date Provider Providers Copied on Encounter [facility], [address] [place] [address] [address], [place], [place], [id number], tel:[phone] [facility] No Information Nov-2 200 9 Driss Shah. [address] [facility] [address], [place], [place], [facility], . tel:[phone] [facility], [address] [place] [address] [address], [place], [place], [id number], tel:[phone] [facility] No Information b-0 5200 7 Driss Shah. [address] [facility] [address], [address], [place], [address], [place]. tel:[phone] Family History Family Member Type Diagnosis Age At Onset No Information Payers Payer name Insurance type Covered democrat ID Linnette espinoza(s) [employer] SOI CI [id number] Social History Type Description Quantity Date Captured [...]
--- OUTSIDE RECORDS SUMMARY | 2025-05-11 12:21 | XMS_ITS | Data Portability ---
Author Organization [facility], Main Office Address [address] [place] [address] Assessment No assessment recorded. Plan of Treatment [...] D, 25-hydroxy , total, serum 2022 023 [facility] (Lab), [address] [place], [address], 3 01:00:05 lipid panel, serum 2022 023 [facility] (Lab), [address] [place], [address], 3 21:05:22 hepatic function panel, serum 2022 023 [facility] (Lab), [address] [place], [address], 21:05:28 CBC w/ auto diff 2022 023 [facility] (Lab), [address] [place], [address], 19:51:40 BMP, serum or plasma 2022 023 [facility] (Lab), [address] [place], [address], 21:05:17 Referral None recorded. Procedures None recorded. Surgeries None recorded. [facility] [address] [facility] [place] [address] Imaging, 2022 Leah Zendejas, [address], [address], 10:03:18 Medication Orders None recorded. Patient TargetsNo targets recorded. Patient Instructions Encounter Date Encounter Id Patient Instructions Last Modified By Organization Details Last Modified Time 01/21/2023 [id number] dementia rating scale-2* Not available 01/26/2023 15:47:19 alcohol misuse* Not available 01/26/2023 15:47:26 depression screening* Not available 01/26/2023 15:47:31 multi-dimensiona l health assessment questionnaire* Not available 01/26/2023 15:47:14 Personalized [facility] Plan and Screening Recommendations Advance Directives - Do you have one? Yes Advance Directives - Do we have your advance directive on file in your health record? No, please bring in a copy at your earliest convenience Primary Prevention/Interven tion (prevents or decreases the chance of common diseases from occurring) Smoking Risk: Non Smoker I have no recommendations. Alcohol Misuse Screening: Negative I have no recommendations. Weight: Appropriate Physical activity: Appropriate physical activity Nutrition: Good Fall Risk (screened today): Low I have no recommendations. Vaccines Pneumococcal: No further needed Influenza: Your next one [...] or ) Breast Cancer Screening with mammogram: Patient is due for diagnostic mammogram. Cervical/Uterine/Ov emanuel Cancer Screening: No screening necessary Osteoporosis Screening: Recommended today Date Screening Last Performed: 04/2020 Colon Cancer Screening: Colonoscopy In: 10/16/2027 Date Screening Last Performed: 10/15/17 Eye Disease Screening: Yearly visits Dementia Risk: Low I have no recommendations Depression Screening: Negative I have no recommendations. Not available 01/20/2023 13:02:50 01/25/2024 [id number] dementia rating scale-2* Not available 01/25/2024 09:00:59 Personalized [facility] Plan and Screening Recommendations Advance Directives - Do you have one? Advance Directives - Do we have your advance directive on file in your health record? Primary Prevention/Interven tion (prevents or decreases the chance of common diseases from occurring) Smoking Risk: Alcohol Misuse Screening: Weight: Physical activity: Nutrition: Fall Risk (screened today): Vaccines Pneumococcal: Influenza: Chronic Disease Risks Stroke: Active diagnosis, Continue current treatment plan Heart Attack: Active diagnosis, Continue current treatment plan Clogging of the Arteries: Active diagnosis, Continue current treatment plan Diabetes: Active diagnosis, Continue current treatment plan Secondary Prevention/Interven tion (detects treatable diseases before they may cause symptoms, disability, or ) Breast Cancer Screening with mammogram: Cervical/Uterine/Ov emanuel Cancer Screening: Osteoporosis Screening: Date Screening Last Performed: Colon Cancer Screening: Date Screening Last Performed: Eye Disease Screening: Your next exam in: Dementia Risk: Depression Screening: Active diagnosis, Continue current treatment plan [id number] Not available 01/25/2024 08:02:36 Reason for Referral [...] um and D. Ronak mccain DC: The [facility] [employer] . 2. Ashwin rogel MF, Stanley grossman [place], Javon off-F haileyar i PABON, et al. Evalu ation , treat ment, and preve ntion of vitam in D defic iency : an Endoc rine Socie ty clini trace pract ice guide line. JCEM. 2010; 96(7) :1911 -30. Not Available [facility] ([facility]) [address] [place], [address], 01/04/2022 08:18:58 01/04/20 22 01/04/2022 TSH TSH 3.280 uIU/m L 0.450- 4.500 Not Available [facility] ([facility]) [address] [place], [address], 01/04/2022 08:18:58 01/04/20 22 01/04/2022 LIPID PANEL cholesterol, total 232 mg/dL 100-19 9 above high normal Not Available [facility] ([facility]) [address] [place], [address], 01/04/2022 08:18:57 01/04/20 22 01/04/2022 LIPID PANEL triglyceride s 55 mg/dL 0-149 Not Available [facility]) [address] [place], [address], 01/04/2022 08:18:57 01/04/20 22 01/04/2022 LIPID PANEL HDL cholesterol 108 mg/dL >39 Not Available [facility] [address] [place], [address], 01/04/2022 08:18:57 01/04/20 22 01/04/2022 LIPID PANEL VLDL cholesterol trace 9 mg/dL 5-40 Not Available [facility] ([facility] [address] [place], [address], 01/04/2022 08:18:57 01/04/20 22 01/04/2022 LIPID PANEL LDL chol calc ([facility]) 115 mg/dL 0-99 above high normal Not Available [facility] ([facility]) [address] [place], [address], 01/04/2022 08:18:57 01/04/20 22 01/04/2022 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 Not Available [facility] ([facility]) [address] [place], [address], 01/04/2022 08:18:57 01/04/20 22 01/04/2022 BASIC METAB OLIC PANEL (8) glucose 83 mg/dL 65-99 Not Available [facility] ([facility]) [address] [place], [address], 01/04/2022 08:18:57 01/04/20 22 01/04/2022 BASIC METAB OLIC PANEL (8) BUN 17 mg/dL 8-27 Not Available [facility] ([facility]) [address] [place], [address], 01/04/2022 08:18:57 01/04/20 22 01/04/2022 BASIC METAB OLIC PANEL (8) creatinine 0.99 mg/dL 0.57-1 .00 Not Available [facility] ([facility]) [address] [place], [address], 01/04/2022 08:18:57 01/04/20 22 01/04/2022 BASIC METAB OLIC PANEL (8) eGFR 62 mL/mi n/1.7 3 >59 Not Available [facility] ([facility]) [address] [place], [address], 01/04/2022 08:18:57 01/04/20 22 01/04/2022 BASIC METAB OLIC PANEL (8) BUN/creatini ne ratio 17 12-28 Not Available [facility] ([facility] [address] [place], [address], 01/04/2022 08:18:57 01/04/20 22 01/04/2022 BASIC METAB OLIC PANEL (8) sodium 141 mmol/ L 134-14 4 Not Available [facility] ([facility]) [address] [facility] [place], [address], 01/04/2022 08:18:57 01/04/20 22 01/04/2022 BASIC METAB OLIC PANEL (8) potassium 4.3 mmol/ L 3.5-5. 2 Not Available [facility] ([facility]) [address] [place], [address], 01/04/2022 08:18:57 01/04/20 22 01/04/2022 BASIC METAB OLIC PANEL (8) chloride 101 mmol/ L 96-106 Not Available [facility] ([facility]) [address] [place], [address], 01/04/2022 08:18:57 01/04/20 22 01/04/2022 BASIC METAB OLIC PANEL (8) carbon dioxide, total 22 mmol/ L 20-29 Not Available [facility] ([facility]) [address] [place], [address], 01/04/2022 08:18:57 01/04/20 22 01/04/2022 BASIC METAB OLIC PANEL (8) calcium 9.7 mg/dL 8.7-10 .3 Not Available [facility] ([facility]) [address] [facility], [place], [address], 01/04/2022 08:18:57 01/04/20 22 01/04/2022 CBC WITH DIFFE RENTI AL/PL ATELE T WBC 2.6 x10e3 /uL 3.4-10 .8 below low normal Not Available [facility] ([facility]) [address] [facility], [place], [address], 01/04/2022 08:18:56 01/04/20 22 01/04/2022 CBC WITH DIFFE RENTI AL/PL ATELE T RBC 3.74 x10e6 /uL 3.77-5 .28 below low normal Not Available [facility] ([facility]) [address] [facility], [place], [address], 01/04/2022 08:18:56 01/04/20 22 01/04/2022 CBC WITH DIFFE RENTI AL/PL ATELE T hemoglobin 11.6 g/dL 11.1-1 5.9 Not Available [facility] ([facility]) [address] [place], [address], 01/04/2022 08:18:56 01/04/20 22 01/04/2022 CBC WITH DIFFE RENTI AL/PL ATELE T hematocrit 33.7 % 34.0-4 6.6 below low normal Not Available [facility] ([facility]) [address] [place], [address], 01/04/2022 08:18:56 01/04/20 22 01/04/2022 CBC WITH DIFFE RENTI AL/PL ATELE T MCV 90 fL 79-97 Not Available [facility] ([facility]) [address] [place], [address], 01/04/2022 08:18:56 01/04/20 22 01/04/2022 CBC WITH DIFFE RENTI AL/PL ATELE T MCH 31.0 pg 26.6-3 3.0 Not Available [facility] ([facility]) [address] [facility], [place], [address], 01/04/2022 08:18:56 01/04/20 22 01/04/2022 CBC WITH DIFFE RENTI AL/PL ATELE T MCHC 34.4 g/dL 31.5-3 5.7 Not Available [facility] ([facility]) [address] [facility], [place], [address], 01/04/2022 08:18:56 01/04/20 22 01/04/2022 CBC WITH DIFFE RENTI AL/PL ATELE T RDW 12.2 % 11.7-1 5.4 Not Available [facility] ([facility]) [address] [facility], [place], [address], 01/04/2022 08:18:56 01/04/20 22 01/04/2022 CBC WITH DIFFE RENTI AL/PL ATELE T platelets 215 x10e3 /uL 150-45 0 Not Available [facility] ([facility]) [address] [facility], [place], [address], 01/04/2022 08:18:56 01/04/20 22 01/04/2022 CBC WITH DIFFE RENTI AL/PL ATELE T neutrophils 70 % not estab. Not Available [facility] ([facility]) [address] [place], [address], 01/04/2022 08:18:56 01/04/20 22 01/04/2022 CBC WITH DIFFE RENTI AL/PL ATELE T lymphs 22 % not estab. Not Available [facility] ([facility]) [address] [place], [address], 01/04/2022 08:18:56 01/04/20 22 01/04/2022 CBC WITH DIFFE RENTI AL/PL ATELE T monocytes 8 % not estab. Not Available [facility] ([facility]) [address] [place], [address], 01/04/2022 08:18:56 01/04/20 22 01/04/2022 CBC WITH DIFFE RENTI AL/PL ATELE T eos 0 % not estab. Not Available [facility] ([facility]) [address] [facility], [place], [address], 01/04/2022 08:18:56 01/04/20 22 01/04/2022 CBC WITH DIFFE RENTI AL/PL ATELE T basos 0 % not estab. 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 0 Not Available [facility] ([facility]) [address] [place], [address], 01/04/2022 08:18:56 01/04/20 22 01/04/2022 CBC WITH DIFFE RENTI AL/PL ATELE T lymphs (absolute) 0.6 x10e3 /uL 0.7-3. 1 below low normal Not Available [facility] ([facility]) [address] [place], [address], 01/04/2022 08:18:56 01/04/20 22 01/04/2022 CBC WITH DIFFE RENTI AL/PL ATELE T monocytes(ab solute) 0.2 x10e3 /uL 0.1-0. 9 Not Available [facility] ([facility]) [address] [place], [address], 01/04/2022 08:18:56 01/04/20 22 01/04/2022 CBC WITH DIFFE RENTI AL/PL ATELE T eos (absolute) 0.0 x10e3 /uL 0.0-0. 4 Not Available [facility] ([facility]) [address] [facility], [place], [address], 01/04/2022 08:18:56 01/04/20 22 01/04/2022 CBC WITH DIFFE RENTI AL/PL ATELE T baso (absolute) 0.0 x10e3 /uL 0.0-0. 2 Not Available [facility] ([facility]) [address] [facility], [place], [address], 01/04/2022 08:18:56 01/04/20 22 01/04/2022 CBC WITH DIFFE RENTI AL/PL ATELE T immature granulocytes 0 % not estab. Not Available [facility] ([facility]) [address] [facility], [place], [address], 01/04/2022 08:18:56 01/04/20 22 01/04/2022 CBC WITH DIFFE RENTI AL/PL ATELE T immature grans (abs) 0.0 x10e3 /uL 0.0-0. 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: textile technologist Not Available [facility] ([facility]) [address] [facility], [place], [address], 01/04/2022 08:18:56 02/12/20 22 02/12/2022 CBC/D IFF AMBIG UOUS DEFAU LT MCH 31.1 pg 26.6-3 3.0 Not Available [facility] ([facility]) [address] [facility], [place], [address], 02/12/2022 05:09:41 02/12/20 22 02/12/2022 CBC/D IFF AMBIG UOUS DEFAU LT WBC 2.9 x10e3 /uL 3.4-10 .8 below low normal Not Available [facility] ([facility]) [address] [facility], [place], [address], 02/12/2022 05:09:41 02/12/20 22 02/12/2022 CBC/D IFF AMBIG UOUS DEFAU LT RBC 4.11 x10e6 /uL 3.77-5 .28 Not Available [facility] ([facility]) [address] [facility], [place], [address], 02/12/2022 05:09:41 02/12/20 22 02/12/2022 CBC/D IFF AMBIG UOUS DEFAU LT hemoglobin 12.8 g/dL 11.1-1 5.9 Not Available [facility] ([facility]) [address] [place], [address], 02/12/2022 05:09:41 02/12/20 22 02/12/2022 CBC/D IFF AMBIG UOUS DEFAU LT hematocrit 38.1 % 34.0-4 6.6 Not Available [facility] ([facility]) [address] [place], [address], 02/12/2022 05:09:41 02/12/20 22 02/12/2022 CBC/D IFF AMBIG UOUS DEFAU LT MCV 93 fL 79-97 Not Available [facility] ([facility]) [address] [place], [address], 02/12/2022 05:09:41 02/12/20 22 02/12/2022 CBC/D IFF AMBIG UOUS DEFAU LT MCHC 33.6 g/dL 31.5-3 5.7 Not Available [facility] ([facility]) [address] [facility], [place], [address], 02/12/2022 05:09:41 02/12/20 22 02/12/2022 CBC/D IFF AMBIG UOUS DEFAU LT RDW 12.6 % 11.7-1 5.4 Not Available [facility] ([facility]) [address] [facility], [place], [address], 02/12/2022 05:09:41 02/12/20 22 02/12/2022 CBC/D IFF AMBIG UOUS DEFAU LT platelets 180 x10e3 /uL 150-45 0 Not Available [facility] ([facility]) [address] [facility], [place], [address], 02/12/2022 05:09:41 02/12/20 22 02/12/2022 CBC/D IFF AMBIG UOUS DEFAU LT neutrophils 62 % not estab. Not Available [facility] ([facility]) [address] [facility], [place], [address], 02/12/2022 05:09:41 02/12/20 22 02/12/2022 CBC/D IFF AMBIG UOUS DEFAU LT lymphs 28 % not estab. Not Available [facility] ([facility]) [address] [facility], [place], [address], 02/12/2022 05:09:41 02/12/20 22 02/12/2022 CBC/D IFF AMBIG UOUS DEFAU LT monocytes 9 % not estab. Not Available [facility] ([facility]) [address] [facility], [place], [address], 02/12/2022 05:09:41 02/12/20 22 02/12/2022 CBC/D IFF AMBIG UOUS DEFAU LT eos 0 % not estab. Not Available [facility] ([facility]) [address] [place], [address], 02/12/2022 05:09:41 02/12/20 22 02/12/2022 CBC/D IFF AMBIG UOUS DEFAU LT basos 1 % not estab. 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 0 Not Available [facility] ([facility]) [address] [place], [address], 02/12/2022 05:09:41 02/12/20 22 02/12/2022 CBC/D IFF AMBIG UOUS DEFAU LT lymphs (absolute) 0.8 x10e3 /uL 0.7-3. 1 Not Available [facility] ([facility]) [address] [place], [address], 02/12/2022 05:09:41 02/12/20 22 02/12/2022 CBC/D IFF AMBIG UOUS DEFAU LT monocytes(ab solute) 0.3 x10e3 /uL 0.1-0. 9 Not Available [facility] ([facility]) [address] [place], [address], 02/12/2022 05:09:41 02/12/20 22 02/12/2022 CBC/D IFF AMBIG UOUS DEFAU LT eos (absolute) 0.0 x10e3 /uL 0.0-0. 4 Not Available [facility] ([facility]) [address] [facility], [place], [address], 02/12/2022 05:09:41 02/12/20 22 02/12/2022 CBC/D IFF AMBIG UOUS DEFAU LT baso (absolute) 0.0 x10e3 /uL 0.0-0. 2 Not Available [facility] ([facility]) [address] [place], [address], 02/12/2022 05:09:41 02/12/20 22 02/12/2022 CBC/D IFF AMBIG UOUS DEFAU LT immature granulocytes 0 % not estab. Not Available [facility] ([facility]) [address] [facility], [place], [address], 02/12/2022 05:09:41 02/12/20 22 02/12/2022 CBC/D IFF AMBIG UOUS DEFAU LT immature grans (abs) 0.0 x10e3 /uL 0.0-0. 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 In accor dance with the [facility] Ambig uous Test Code Polic y dated April 2003, we have assig ramón CBC with Diffe renti al/Pl atele t, Test Code #[address]. If this is not the testi ng you wishe d to recei ve on this speci maría razo e shanae ct the [facility] Clien t Inqui ry/ Techn ical Servi joyce Depar tment to christine fy the test order . We appre ciate your busin ess. Not Available [facility] ([facility]) [address] [place], [address], 02/12/2022 05:09:41 03/11/20 22 03/12/2022 CBC WITH DIFFE RENTI AL/PL ATELE T WBC 3.8 x10e3 /uL 3.4-10 .8 Not Available [facility] ([facility]) [address] [place], [address], 03/12/2022 03:08:22 03/11/20 22 03/12/2022 CBC WITH DIFFE RENTI AL/PL ATELE T MCHC 33.3 g/dL 31.5-3 5.7 Not Available [facility] ([facility]) [address] [place], [address], 03/12/2022 03:08:22 03/11/20 22 03/12/2022 CBC WITH DIFFE RENTI AL/PL ATELE T RBC 4.39 x10e6 /uL 3.77-5 .28 Not Available [facility] ([facility]) [address] [place], [address], 03/12/2022 03:08:22 03/11/20 22 03/12/2022 CBC WITH DIFFE RENTI AL/PL ATELE T hemoglobin 13.4 g/dL 11.1-1 5.9 Not Available [facility] ([facility]) [address] [place], [address], 03/12/2022 03:08:22 03/11/20 22 03/12/2022 CBC WITH DIFFE RENTI AL/PL ATELE T hematocrit 40.2 % 34.0-4 6.6 Not Available [facility] ([facility]) [address] [facility], [place], [address], 03/12/2022 03:08:22 03/11/20 22 03/12/2022 CBC WITH DIFFE RENTI AL/PL ATELE T MCV 92 fL 79-97 Not Available [facility] ([facility]) [address] [facility], [place], [address], 03/12/2022 03:08:22 03/11/20 22 03/12/2022 CBC WITH DIFFE RENTI AL/PL ATELE T MCH 30.5 pg 26.6-3 3.0 Not Available [facility] ([facility]) [address] [facility], [place], [address], 03/12/2022 03:08:22 03/11/20 22 03/12/2022 CBC WITH DIFFE RENTI AL/PL ATELE T RDW 11.9 % 11.7-1 5.4 Not Available [facility] ([facility]) [address] [place], [address], 03/12/2022 03:08:22 03/11/20 22 03/12/2022 CBC WITH DIFFE RENTI AL/PL ATELE T platelets 185 x10e3 /uL 150-45 0 Not Available [facility] ([facility]) [address] [facility], [place], [address], 03/12/2022 03:08:22 03/11/20 22 03/12/2022 CBC WITH DIFFE RENTI AL/PL ATELE T neutrophils 60 % not estab. Not Available [facility] ([facility]) [address] [place], [address], 03/12/2022 03:08:22 03/11/20 22 03/12/2022 CBC WITH DIFFE RENTI AL/PL ATELE T lymphs 29 % not estab. Not Available [facility] ([facility]) [address] [place], [address], 03/12/2022 03:08:22 03/11/20 22 03/12/2022 CBC WITH DIFFE RENTI AL/PL ATELE T monocytes 9 % not estab. Not Available [facility] ([facility]) [address] [place], [address], 03/12/2022 03:08:22 03/11/20 22 03/12/2022 CBC WITH DIFFE RENTI AL/PL ATELE T eos 1 % not estab. Not Available [facility] ([facility]) [address] [place], [address], 03/12/2022 03:08:22 03/11/20 22 03/12/2022 CBC WITH DIFFE RENTI AL/PL ATELE T basos 1 % not estab. 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 0 Not Available [facility] ([facility]) [address] [place], [address], 03/12/2022 03:08:22 03/11/20 22 03/12/2022 CBC WITH DIFFE RENTI AL/PL ATELE T lymphs (absolute) 1.1 x10e3 /uL 0.7-3. 1 Not Available [facility] ([facility]) [address] [place], [address], 03/12/2022 03:08:22 03/11/20 22 03/12/2022 CBC WITH DIFFE RENTI AL/PL ATELE T monocytes(ab solute) 0.3 x10e3 /uL 0.1-0. 9 Not Available [facility] ([facility]) [address] [facility], [place], [address], 03/12/2022 03:08:22 03/11/20 22 03/12/2022 CBC WITH DIFFE RENTI AL/PL ATELE T eos (absolute) 0.0 x10e3 /uL 0.0-0. 4 Not Available [facility] ([facility]) [address] [place], [address], 03/12/2022 03:08:22 03/11/20 22 03/12/2022 CBC WITH DIFFE RENTI AL/PL ATELE T baso (absolute) 0.0 x10e3 /uL 0.0-0. 2 Not Available [facility] ([facility]) [address] [place], [address], 03/12/2022 03:08:22 03/11/20 22 03/12/2022 CBC WITH DIFFE RENTI AL/PL ATELE T immature granulocytes 0 % not estab. Not Available [facility] ([facility]) [address] [place], [address], 03/12/2022 03:08:22 03/11/20 22 03/12/2022 CBC WITH DIFFE RENTI AL/PL ATELE T immature grans (abs) 0.0 x10e3 /uL 0.0-0. 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20 Not Available [facility] (Lab) [address] [place], [address], 01/21/2023 19:51:40 01/22/20 23 01/21/2023 CBC/C OMPLE TE BLD COUNT W/DIF F hemoglobin 12.5 g/dL 12.0-1 5.6 Not Available [facility] (Lab) [address] [place], [address], 01/21/2023 19:51:40 01/22/20 23 01/21/2023 CBC/C OMPLE TE BLD COUNT W/DIF F hematocrit 39.2 % 35.7-4 5.7 Not Available [facility] (Lab) [address] [place], [address], 01/21/2023 19:51:40 01/22/20 23 01/21/2023 CBC/C OMPLE TE BLD COUNT W/DIF F mean red cell volume 92.5 fL 82.0-9 9.0 Not Available [facility] (Lab) [address] [place], [address], 01/21/2023 19:51:40 01/22/20 23 01/21/2023 CBC/C OMPLE TE BLD COUNT W/DIF F mean red cell hemoglobin 29.5 pg 27.0-3 3.0 Not Available [facility] (Lab) [address] [place], [address], 01/21/2023 19:51:40 01/22/20 23 01/21/2023 CBC/C OMPLE TE BLD COUNT W/DIF F mean RBC HGB concentratio n 31.9 g/dL 31.0-3 6.0 Not Available [facility] (Lab) [address] [place], [address], 01/21/2023 19:51:40 01/22/20 23 01/21/2023 CBC/C OMPLE TE BLD COUNT W/DIF F red cell distribution width 13.2 % 11.8-1 5.5 Not Available [facility] (Lab) [address] [place], [address], 01/21/2023 19:51:40 01/22/20 23 01/21/2023 CBC/C OMPLE TE BLD COUNT W/DIF F platelets 222 x10'3 /uL 150-40 0 Not Available [facility] (Lab) [address] [place], [address], 01/21/2023 19:51:40 01/22/20 23 01/21/2023 CBC/C OMPLE TE BLD COUNT W/DIF F mean platelet volume 11.6 fL 9.0-12 .4 Not Available [facility] (Lab) [address] [place], [address], 01/21/2023 19:51:40 01/22/20 23 01/21/2023 CBC/C OMPLE TE BLD COUNT W/DIF F neutrophils 58.0 % 39.0-7 2.0 Not Available [facility] (Lab) [address] [place], [address], 01/21/2023 19:51:40 01/22/20 23 01/21/2023 CBC/C OMPLE TE BLD COUNT W/DIF F lymphocytes 31.0 % 16.0-4 7.0 Not Available [facility] (Lab) [address] [place], [address], 01/21/2023 19:51:40 01/22/20 23 01/21/2023 CBC/C OMPLE TE BLD COUNT W/DIF F monocytes 9.8 % 5.0-12 .0 Not Available [facility] (Lab) [address] [place], [address], 01/21/2023 19:51:40 01/22/20 23 01/21/2023 CBC/C OMPLE TE BLD COUNT W/DIF F eosinophils 0.3 % 1.0-7. 0 low Not Available [facility] (Lab) [address] [place], [address], 01/21/2023 19:51:40 01/22/20 23 01/21/2023 CBC/C OMPLE TE BLD COUNT W/DIF F basophils 0.6 % 0.0-2. 0 Not Available [facility] (Lab) [address] [place], [address], 01/21/2023 19:51:40 01/22/20 23 01/21/2023 CBC/C OMPLE TE BLD COUNT W/DIF F immature granulocytes 0.3 % 0.00-0 .50 Not Available [facility] (Lab) [address] [place], [address], 01/21/2023 19:51:40 01/22/20 23 01/21/2023 CBC/C OMPLE TE BLD COUNT W/DIF F neutrophils, absolute count 1.83 x10'3 /uL 1.5-8. 0 Not Available [facility] (Lab) [address] [place], [address], 01/21/2023 19:51:40 01/22/20 23 01/21/2023 CBC/C OMPLE TE BLD COUNT W/DIF F lymphocytes, absolute count 0.98 x10'3 /uL 1.07-3 .43 low Not Available [facility] (Lab) [address] [place], [address], 01/21/2023 19:51:40 01/22/20 23 01/21/2023 CBC/C OMPLE TE BLD COUNT W/DIF F monocytes, absolute count 0.31 x10'3 /uL 0.29-0 .99 Not Available [facility] (Lab) [address] [place], [address], 01/21/2023 19:51:40 01/22/20 23 01/21/2023 CBC/C OMPLE TE BLD COUNT W/DIF F eosinophils, absolute count 0.01 x10'3 /uL 0.02-0 .53 low Not Available [facility] (Lab) [address] [place], [address], 01/21/2023 19:51:40 01/22/20 23 01/21/2023 CBC/C OMPLE TE BLD COUNT W/DIF F basophils, absolute count 0.02 x10'3 /uL 0.01-0 .08 Not Available [facility] (Lab) [address] [place], [address], 01/21/2023 19:51:40 01/22/2001/21/2023 CBC/C OMPLE TE BLD COUNT W/DIF F immature granulocytes ,absolute 0.01 x10'3 /uL 0.00-0 .05 Not Available [facility] (Lab) [address] [place], [address], 01/21/2023 19:51:40 04/05/20 23 01/21/2023 CBC/C OMPLE TE BLD COUNT W/DIF F nucleated red blood cells 0.0 % -0 Not Available [facility] (Lab) [address] [place], [address], 01/21/2023 19:51:40 01/22/20 23 01/21/2023 CBC/C OMPLE TE BLD COUNT W/DIF F NRBC# 0.00 x10'3 /uL Not Available [facility] (Lab) [address] [place], [address], 01/21/2023 19:51:40 01/22/20 23 01/21/2023 BASIC METAB OLIC PANEL sodium 140 mmol/ L 137-14 5 Not Available [facility] (Lab) [address] [place], [address], 01/21/2023 21:05:17 01/22/20 23 01/21/2023 BASIC METAB OLIC PANEL potassium 3.8 mmol/ L 3.5-5. 1 Not Available [facility] (Lab) [address] [place], [address], 01/21/2023 21:05:17 01/22/20 23 01/21/2023 BASIC METAB OLIC PANEL chloride 105 mmol/ L 98-107 Not Available [facility] (Lab) [address] [place], [address], 01/21/2023 21:05:17 01/22/20 23 01/21/2023 BASIC METAB OLIC PANEL carbon dioxide 27 mmol/ L 22-30 Not Available [facility] (Lab) [address] [place], [address], 01/21/2023 21:05:17 01/22/20 23 01/21/2023 BASIC METAB OLIC PANEL anion gap 11.8 mmol/ L 14-22 low Not Available [facility] (Lab) [address] [place], [address], 01/21/2023 21:05:17 01/22/20 23 01/21/2023 BASIC METAB OLIC PANEL glucose 85 mg/dL 70-99 Not Available [facility] (Lab) [address] [place], [address], 01/21/2023 21:05:17 01/22/20 23 01/21/2023 BASIC METAB OLIC PANEL BUN 20 mg/dL 8-19 high Not Available [facility] (Lab) [address] [place], [address], 01/21/2023 21:05:17 01/22/20 23 01/21/2023 BASIC METAB OLIC PANEL creatinine 0.79 mg/dL 0.66-1 .25 Not Available [facility] (Lab) [address] [place], [address], 01/21/2023 21:05:17 01/22/20 23 01/21/2023 BASIC METAB OLIC PANEL GFR >60 Refer ence Range : [place] GFR Healt hy Adult : >60 [...] or ethni c subgr oups, such as Hispa nics. Outsi de the valid ated pankaj [...] of age, a pedia tric GFR calcu lator is avail able on the [facility] websi te: https :[email or web address] malik.cortez alvarenga.indiana pitts/pr ofess ional s/kdo qi/gf r_cal culat or Not Available [facility] (Lab) [address] [place], [address], 01/21/2023 21:05:17 01/22/20 23 01/21/2023 BASIC METAB OLIC PANEL calcium 9.8 mg/dL 8.4-10 .2 Not Available [facility] (Lab) [address] [place], [address], 01/21/2023 21:05:17 01/22/20 23 01/21/2023 LIPID PANEL cholesterol 241 mg/dL 140-19 9 high NIH JUAN DIEGO NSUS RECOM MENDA TION FOR TEN STERO L: ADULT CHILD LOW RISK: <200 <170 BORDE RLINE : <200- 239 ----- HIGH RISK: >240 >200 Not Available [facility] (Lab) [address] [place], [address], 01/21/2023 21:07:35 01/22/20 23 01/21/2023 LIPID PANEL triglyceride s 47 mg/dL 0-150 NIH JUAN DIEGO NSUS REPOR T RECOM MENDA TION FOR TRIGL YCERI FRANC: ADULT CHILD LOW RISK: <150 ----- BODER LINE: 150-1 99 ----- HIGH RISK: >200 ----- Not Available [facility] (Lab) [address] [place], [address], 01/21/2023 21:07:35 01/22/20 23 01/21/2023 LIPID PANEL HDL cholesterol 127 mg/dL 40- Not Available [facility] (Lab) [address] [place], [address], 01/21/2023 21:07:35 01/22/20 01/21/2023 LIPID PANEL LDL cholesterol, calculated 105 mg/dL 0-130 NIH JUAN DIEGO NSUS REPOR T RECOM MENDA TIONS FOR LDL: ADULT CHILD LOW RISK <130 <110 (OPTI MAL LDL) <100 ----- RJDE RLINE : 130-1 59 ----- HIGH RISK: >160 >130 A TRIGL YCERI DE RESUL T >400 INVAL IDATE S THE CALCU LATIO N FOR LDL FRACT IONAT ION - THE LDL RESUL T WILL NOT BE REPOR BETO. Not Available [facility] (Lab) [address] [place], [address], 01/21/2023 21:07:35 01/22/20 23 01/21/2023 HEPAT IC/LI CODEY PANEL alkaline phosphatase 48 U/L 38-126 Not Available [facility] (Lab) [address] [place], [address], 01/21/2023 21:05:28 01/22/20 23 01/21/2023 HEPAT IC/LI CODEY PANEL alanine aminotransfe rase 31 U/L 0-35 Not Available [facility] (Lab) [address] [place], [address], 01/21/2023 21:05:28 01/22/20 23 01/21/2023 HEPAT IC/LI CODEY PANEL aspartate aminotransfe rase 34 U/L 15-37 Not Available [facility] (Lab) [address] [place], [address], 01/21/2023 21:05:28 01/22/20 23 01/21/2023 HEPAT IC/LI CODEY PANEL bilirubin, total 0.60 mg/dL 0.20-1 .30 Not Available [facility] (Lab) [address] [place], [address], 01/21/2023 21:05:28 01/22/20 23 01/21/2023 HEPAT IC/LI CODEY PANEL bilirubin, conjugated (direct) 0.00 mg/dL 0.00-0 .30 Not Available [facility] (Lab) [address] [place], [address], 01/21/2023 21:05:28 01/22/20 23 01/21/2023 HEPAT IC/LI CODEY PANEL biliurubin,u ncong. (indirect) 0.30 mg/dL 0.00-1 .1 Not Available [facility] (Lab) [address] [place], [address], 01/21/2023 21:05:28 01/22/20 23 01/21/2023 HEPAT IC/LI CODEY PANEL total protein 7.4 g/dL 6.3-8. 2 Not Available [facility] (Lab) [address] [place], [address], 01/21/2023 21:05:28 01/22/20 23 01/21/2023 HEPAT IC/LI CODEY PANEL albumin 4.7 g/dL 3.0-4. 4 high Not Available [facility] (Lab) [address] [place], [address], 01/21/2023 21:05:28 01/22/20 23 01/21/2023 HEPAT IC/LI CODEY PANEL globulin 2.7 g/dL 2.6-4. 2 Not Available [facility] (Lab) [address] [place], [address], 01/21/2023 21:05:28 01/22/20 23 01/21/2023 HEPAT IC/LI CODEY PANEL A/G ratio 1.7 ratio 1.0-2. 0 Not Available [facility] (Lab) [address] [place], [address], 01/21/2023 21:05:28 01/22/20 23 01/21/2023 VITAM IN D 25-HY DROXY [id number] 51.7 NG/mL 30-100 Vitam in D Statu s: Defic ient: <20 ng/mL Insuf ficie nt: 20-29 ng/mL Suffi cient : 30-10 0 ng/mL Not Available [facility] (Lab) [address] [facility], [place], [address], 01/21/2023 21:13:35 03/02/20 24 03/03/2024 CBC WITH DIFFE RENTI AL/PL ATELE T WBC 2.7 x10e3 /uL 3.4-10 .8 below low normal Not Available [facility] ([facility]) [address] [facility], [place], [address], 03/03/2024 07:13:40 03/02/20 24 03/03/2024 CBC WITH DIFFE RENTI AL/PL ATELE T RBC 4.39 x10e6 /uL 3.77-5 .28 Not Available [facility] ([facility]) [address] [place], [address], 03/03/2024 07:13:40 03/02/20 24 03/03/2024 CBC WITH DIFFE RENTI AL/PL ATELE T hemoglobin 13.3 g/dL 11.1-1 5.9 Not Available [facility] ([facility]) [address] [place], [address], 03/03/2024 07:13:40 03/02/20 24 03/03/2024 CBC WITH DIFFE RENTI AL/PL ATELE T hematocrit 40.6 % 34.0-4 6.6 Not Available [facility] ([facility]) [address] [place], [address], 03/03/2024 07:13:40 03/02/20 24 03/03/2024 CBC WITH DIFFE RENTI AL/PL ATELE T MCV 93 fL 79-97 Not Available [facility] ([facility]) [address] [place], [address], 03/03/2024 07:13:40 03/02/20 24 03/03/2024 CBC WITH DIFFE RENTI AL/PL ATELE T MCH 30.3 pg 26.6-3 3.0 Not Available [facility] ([facility]) [address] [facility], [place], [address], 03/03/2024 07:13:40 03/02/20 24 03/03/2024 CBC WITH DIFFE RENTI AL/PL ATELE T MCHC 32.8 g/dL 31.5-3 5.7 Not Available [facility] ([facility]) [address] [facility], [place], [address], 03/03/2024 07:13:40 03/02/20 24 03/03/2024 CBC WITH DIFFE RENTI AL/PL ATELE T RDW 13.3 % 11.7-1 5.4 Not Available [facility] ([facility]) [address] [facility], [place], [address], 03/03/2024 07:13:40 03/02/20 24 03/03/2024 CBC WITH DIFFE RENTI AL/PL ATELE T platelets 212 x10e3 /uL 150-45 0 Not Available [facility] ([facility]) [address] [facility], [place], [address], 03/03/2024 07:13:40 03/02/20 24 03/03/2024 CBC WITH DIFFE RENTI AL/PL ATELE T neutrophils 79 % not estab. Not Available [facility] ([facility]) [address] [facility], [place], [address], 03/03/2024 07:13:40 03/02/20 24 03/03/2024 CBC WITH DIFFE RENTI AL/PL ATELE T lymphs 12 % not estab. Not Available [facility] ([facility]) [address] [place], [address], 03/03/2024 07:13:40 03/02/20 24 03/03/2024 CBC WITH DIFFE RENTI AL/PL ATELE T monocytes 7 % not estab. Not Available [facility] ([facility]) [address] [facility], [place], [address], 03/03/2024 07:13:40 03/02/20 24 03/03/2024 CBC WITH DIFFE RENTI AL/PL ATELE T eos 1 % not estab. Not Available [facility] ([facility]) [address] [facility], [place], [address], 03/03/2024 07:13:40 03/02/20 24 03/03/2024 CBC WITH DIFFE RENTI AL/PL ATELE T basos 1 % not estab. Not Available [facility] ([facility]) [address] [facility], [place], [address], 03/03/2024 07:13:40 03/02/20 24 03/03/2024 CBC WITH DIFFE RENTI AL/PL ATELE T immature cells PRACTICE ARCHITECT Not Available [facility] ([facility]) [address] [place], [address], 03/03/2024 07:13:40 03/02/20 24 03/03/2024 CBC WITH DIFFE RENTI AL/PL ATELE T neutrophils (absolute) 2.2 x10e3 /uL 1.4-7. 0 Not Available [facility] ([facility]) [address] [facility], [place], [address], 03/03/2024 07:13:40 03/02/20 24 03/03/2024 CBC WITH DIFFE RENTI AL/PL ATELE T lymphs (absolute) 0.3 x10e3 /uL 0.7-3. 1 below low normal Not Available [facility] ([facility]) [address] [place], [address], 03/03/2024 07:13:40 03/02/20 24 03/03/2024 CBC WITH DIFFE RENTI AL/PL ATELE T monocytes(ab solute) 0.2 x10e3 /uL 0.1-0. 9 Not Available [facility] ([facility]) [address] [facility], [place], [address], 03/03/2024 07:13:40 03/02/20 24 03/03/2024 CBC WITH DIFFE RENTI AL/PL ATELE T eos (absolute) 0.0 x10e3 /uL 0.0-0. 4 Not Available [facility] ([facility]) [address] [facility], [place], [address], 03/03/2024 07:13:40 03/02/20 24 03/03/2024 CBC WITH DIFFE RENTI AL/PL ATELE T baso (absolute) 0.0 x10e3 /uL 0.0-0. 2 Not Available [facility] ([facility]) [address] [facility], [place], [address], 03/03/2024 07:13:40 03/02/20 24 03/03/2024 CBC WITH DIFFE RENTI AL/PL ATELE T immature granulocytes 0 % not estab. Not Available [facility] ([facility]) [address] [facility], [place], [address], 03/03/2024 07:13:40 03/02/20 24 03/03/2024 CBC WITH DIFFE RENTI AL/PL ATELE T immature grans (abs) 0.0 x10e3 /uL 0.0-0. 1 Not Available [facility] ([facility]) [address] [facility], [place], [address], 03/03/2024 07:13:40 03/02/20 24 03/03/2024 CBC WITH DIFFE RENTI AL/PL ATELE T NRBC PRACTICE ARCHITECT Not Available [facility] ([facility]) [address] [facility], [place], [address], 03/03/2024 07:13:40 03/02/20 24 03/03/2024 CBC WITH DIFFE RENTI AL/PL ATELE T hematology comments: PRACTICE ARCHITECT Not Available [facility] ([facility]) [address] [facility] [place], [address], 03/03/2024 07:13:40 03/02/20 24 03/03/2024 BASIC METAB OLIC PANEL (8) glucose 82 mg/dL 70-99 Not Available [facility] ([facility]) [address] [facility] [place], [address], 03/03/2024 07:13:42 03/02/20 24 03/03/2024 BASIC METAB OLIC PANEL (8) BUN 24 mg/dL 8-27 Not Available [facility] ([facility]) [address] [facility] [place], [address], 03/03/2024 07:13:42 03/02/20 24 03/03/2024 BASIC METAB OLIC PANEL (8) creatinine 0.96 mg/dL 0.57-1 .00 Not Available [facility] ([facility]) [address] [place], [address], 03/03/2024 07:13:42 03/02/20 24 03/03/2024 BASIC METAB OLIC PANEL (8) eGFR 64 mL/mi n/1.7 3 >59 Not Available [facility] ([facility]) [address] [facility], [place], [address], 03/03/2024 07:13:42 03/02/20 24 03/03/2024 BASIC METAB OLIC PANEL (8) BUN/creatini ne ratio 25 12-28 Not Available [facility] ([facility]) [address] [place], [address], 03/03/2024 07:13:42 03/02/20 24 03/03/2024 BASIC METAB OLIC PANEL (8) sodium 141 mmol/ L 134-14 4 Not Available [facility] ([facility]) [address] [place], [address], 03/03/2024 07:13:42 03/02/20 24 03/03/2024 BASIC METAB OLIC PANEL (8) potassium 4.1 mmol/ L 3.5-5. 2 Not Available [facility] ([facility]) [address] [place], [address], 03/03/2024 07:13:42 03/02/20 24 03/03/2024 BASIC METAB OLIC PANEL (8) chloride 102 mmol/ L 96-106 Not Available [facility] ([facility]) [address] [place], [address], 03/03/2024 07:13:42 03/02/20 24 03/03/2024 BASIC METAB OLIC PANEL (8) carbon dioxide, total 25 mmol/ L 20-29 Not Available [facility] ([facility]) [address] [place], [address], 03/03/2024 07:13:42 03/02/20 24 03/03/2024 BASIC METAB OLIC PANEL (8) calcium 10.1 mg/dL 8.7-10 .3 Not Available [facility] ([facility]) [address] [place], [address], 03/03/2024 07:13:42 03/02/20 24 03/03/2024 LIPID PANEL cholesterol, total 256 mg/dL 100-19 9 above high normal Not Available [facility] ([facility]) [address] [place], [address], 03/03/2024 07:13:43 03/02/20 24 03/03/2024 LIPID PANEL triglyceride s 65 mg/dL 0-149 Not Available [facility] ([facility]) [address] [place], [address], 03/03/2024 07:13:43 03/02/20 24 03/03/2024 LIPID PANEL HDL cholesterol 99 mg/dL >39 Not Available [facility] ([facility]) [address] [place], [address], 03/03/2024 07:13:43 03/02/20 24 03/03/2024 LIPID PANEL VLDL cholesterol trace 10 mg/dL 5-40 Not Available [facility] ([facility]) [address] [place], [address], 03/03/2024 07:13:43 03/02/20 24 03/03/2024 LIPID PANEL LDL chol calc ([facility]) 147 mg/dL 0-99 above high normal Not Available [facility] ([facility]) [address] [facility], [place], [address], 03/03/2024 07:13:43 03/02/20 24 03/03/2024 LIPID PANEL comment: PRACTICE ARCHITECT Not Available [facility] ([facility]) [address] [place], [address], 03/03/2024 07:13:43 03/02/20 24 03/03/2024 HEPAT IC FUNCT ION PANEL (7) protein, total 6.8 g/dL 6.0-8. 5 Not Available [facility] ([facility]) [address] [place], [address], 03/03/2024 07:13:44 03/02/20 24 03/03/2024 HEPAT IC FUNCT ION PANEL (7) albumin 4.6 g/dL 3.9-4. 9 Not Available [facility] ([facility]) [address] [place], [address], 03/03/2024 07:13:44 03/02/20 24 03/03/2024 HEPAT IC FUNCT ION PANEL (7) bilirubin, total 0.5 mg/dL 0.0-1. 2 Not Available [facility] ([facility]) [address] [place], [address], 03/03/2024 07:13:44 03/02/20 24 03/03/2024 HEPAT IC FUNCT ION PANEL (7) bilirubin, direct 0.14 mg/dL 0.00-0 .40 Not Available [facility] ([facility]) [address] [place], [address], 03/03/2024 07:13:44 03/02/20 24 03/03/2024 HEPAT IC FUNCT ION PANEL (7) alkaline phosphatase 51 IU/L 44-121 Not Available [facility] ([facility] [address] [place], [address], 03/03/2024 07:13:44 03/02/20 24 03/03/2024 HEPAT IC FUNCT ION PANEL (7) AST (SGOT) 29 IU/L 0-40 Not Available [facility] ([facility]) [address] [facility], [place], [address], 03/03/2024 07:13:44 03/02/20 24 03/03/2024 HEPAT IC FUNCT ION PANEL (7) ALT (SGPT) 25 IU/L 0-32 Not Available [facility] ([facility]) [address] [place], [address], 03/03/2024 07:13:44 03/02/20 24 03/03/2024 VITAM IN [...] um and D. Ronak mccain [place]: The [facility] . 2. Ashwin rogel MF, Stanley grossman [place], Javon off-F errar i PABON, et al. Evalu ation , treat ment, and preve ntion of vitam in D defic iency : an Endoc rine Socie ty clini trace pract ice guide line. JCEM. 2010; 96(7) :1911 -30. Not Available [facility] ([facility]) [address] [facility], [place], [address], 03/03/2024 07:13:45 03/02/20 24 03/02/2024 AMBIG ABBRE V BMP8 DEFAU LT ambig abbrev BMP8 default Commen t A hand- writt en panel /prof ile was recei ivonne from your offic e. In accor dance with the [facility] Ambig uous Test Code [facility] y dated April 2003, we have compl [...] ciate your busin ess. Not Available [facility] ([facility]) [address] [facility], [place], [address], 03/03/2024 07:13:46 03/02/20 24 03/02/2024 AMBIG ABBRE [...] ciate your busin ess. Not Available [facility] ([facility]) [address] [facility], [place], [address], 03/03/2024 07:13:46 03/02/20 24 03/02/2024 AMBIG ABBRE V HFP7 DEFAU LT ambig abbrev hfp7 default Commen t A hand- writt en panel /prof ile was recei ivonne from your offic e. In accor dance with the [facility] Ana ugen Test Code Polic y dated April 2003, we have compl eted your order by using the close st curre ntly or forme rly recog nized AMA panel . We have assvielka phamd Hepat ic Funct ion Panel (7), Test [...] ciate your busin ess. Not Available [facility] ([facility]) [address] [facility], [place], [address], 03/03/2024 07:13:47 09/30/20 21 09/30/2021 MAMMO , scree teri, bilat eral No observ ation record ed. [id number] [facility] [address], [place], [address], 12/17/2022 03:14:59 02/07/20 23 12/16/2022 mammo gram, follo w up* No observ ation record ed. [email or web address] [facility] [address], [place], [address], 02/09/2023 08:01:50 02/13/20 23 02/12/2023 MAMMO , diagn ostic , digit al, unila teral No observ ation record ed. [address], [place], [address], 02/12/2023 18:11:32 02/13/20 23 02/12/2023 MAMMO , diagn ostic , digit al, unila teral No observ ation record ed. [address], [place], [address], 02/12/2023 18:11:11 02/13/20 23 02/12/2023 MAMMO , diagn ostic , digit al, unila teral No observ ation record ed. [email or web address] [facility] [address], [place], [address], 03/24/2023 11:07:27 04/02/20 23 04/02/2023 mammo gram, follo w up* No observ ation record ed. [email or web address] [address], [place], [address], 04/03/2023 11:09:18 04/02/20 23 04/02/2023 US, nubia t, bilat eral No observ ation record ed. [address], [place], [address], 04/15/2023 10:02:20 04/10/20 23 04/09/2023 DEXA No observ ation record ed. [facility] [address], [place], [address], 04/15/2023 11:03:04 06/06/20 23 05/29/2023 MRI, breas t, bilat eral, w/ contr ast No observ ation record ed. [address], [place], [address], 06/08/2023 08:49:16 07/09/20 23 07/09/2023 XR, alvin nce No observ ation record ed. [address], [place], [address], 02/29/2024 12:20:07 07/09/20 23 07/09/2023 senti dana node injec tion (PROC ) No observ ation record ed. [address] [facility], [place], [address], 02/29/2024 12:21:55 07/09/20 23 07/09/2023 XR, chest No observ ation record ed. [address] [address], [place], [address], 02/29/2024 12:22:18 10/30/19 24 10/29/2023 MAMMO , diagn ostic , digit al, unila teral No observ ation record ed. [address], [place], [address], 02/27/2024 07:36:17 12/08/19 24 12/07/2023 MRI, breas t, bilat eral, w/ contr ast No observ ation record ed. [address], [place], [address], 01/25/2024 08:12:21 12/31/19 24 12/31/2023 MAMMO , scree teri, digit al, bilat eral No observ ation record ed. [address] [facility] [address], [place], [address], 01/25/2024 08:11:51 Result Notes None recorded. Problems Name Problem SNOMED Code Status Onset Date Resolution Date Notes Provider Name and Address Organization Details Recorded Time Bilateral hearing loss 28290362 Active 2019 Not Available [facility] 02:57:02 Mammography abnormal 773901886 Active 2022 Lis Donis MD [address] [facility], [place] [address], [place], [address] , [employer] 08:10:32 Vitamin D deficiency 06942537 Active 2022 Lis Donis MD [address] [facility], [place] [address], [place], [address] , [employer] 12:30:38 Hyperlipidemi a 95540182 Active 2022 Lis Donis MD [address] [facility], [place] [address], [place], [address] , [employer] 12:30:52 Leukopenia 48263723 Active 2022 Lis Donis MD [address] [facility], [place] [address], [place], [address] , [employer] 12:35:40 Osteopenia 980505708 Active 2022 dexa 03/2023 Lis Donis MD [address] [facility], [place] [address], [place], [address] , [employer] 10:03:48 Problem Notes None recorded. Procedures Surgical History Date Name Laterality Status Provider Name and Address Organization Details Recorded Time 01/25/20 24 Medicare Wellness CPT Code, subsequent completed Sherrie Downs RN [facility] AIM 01/25/2024 08:02:36 01/22/20 23 Medicare Wellness CPT Code, subsequent completed Socorro Luo RN [facility] [employer] A[facility] 01/20/2023 12:14:41 10/15/20 17 colonoscopy completed Not Available [facility] 12/18/19 02:46:50 ligation of bilateral fallopian tubes completed Not Available [facility] 12/17/2022 02:46:50 procedure on urinary bladder completed Not Available [facility] 12/17/2022 02:46:50 Imaging Results None recorded. Procedure Notes None recorded. Medical Equipment None [...] Available No t Available Vitals Date Recorded Oxygen saturation Oxygen saturation in Arterial blood by Pulse oximetry Heart rate Body temperature Body weight Systolic And Diastolic Provider Name and Address Organization Details Last Updated DateTime 1 98 % 98 % 66 /min 97 [degF] 88495.0 8 g 102/68 mm[Hg] Not Available [facility] 3 02:53:49 Date Recorded Body mass index (BMI) Body height Oxygen saturation Oxygen saturation in Arterial blood by Pulse oximetry Heart rate Body temperature Body weight Systolic And Diastolic Provider Name and Address Organization Details Last Updated DateTime 2 19.7 kg/m2 167.64 cm 97 % 97 % 74 /min 97 [degF] 64368.2 7 g 100/70 mm[Hg] Not Available [facility] 3 02:53:49 Date Recorded Body weight Body mass index (BMI) Body height Body temperature Heart rate Oxygen saturation Oxygen saturation in Arterial blood by Pulse oximetry Systolic And Diastolic Provider Name and Address Organization Details Last Updated DateTime 3 33381.2 7 g 19.7 kg/m2 167.64 cm 97.6 [degF] 72 /min 98 % 98 % 120/68 mm[Hg] Cleopatra Fu CMA [facility] [employer] 3 12:07:29 Date Recorded Body temperature Provider Name a nd Address Organization Details Last Updated DateTime 01/25/2024 97.6 [degF] Lis Donis MD [address], [facility] [address], [place], [address], [facility] 01/25/2024 08:09:23 Date Recorded Body weight Heart rate Oxygen saturation Oxygen saturation in Arterial blood by Pulse oximetry Systolic And Diastolic Provider Name and Address Organization Details Last Updated DateTime 4 39959.5 3 g 96 /min 96 % 96 % 124/80 mm[Hg] Sherrie Downs RN [facility] 4 08:05:19 Social History Question Answer Notes LastModified by Organization Details LastModified Time Tobacco Smoking Status Never Smoker Camila Garrick [place], [place] [employer] [facility] 01/21/2023 12:01:28 Do You Have An Advance Directive? Yes [email or web address] Information not available 01/21/2023 Are You Blind Or Do You Have Difficulty Seeing? No [email or web address] Information not available 01/21/2023 What Is Your Level Of Caffeine Consumption? Moderate [id number] Information not available 12/17/2022 How Much Tobacco Do You Chew? None [id number] Information not available 12/17/2022 In The 14 Days Before Symptom Onset, Have You Had Close Contact With A Laboratory-confi rmed COVID-19 While That Case Was Ill? No [email or web address] Information not available 01/21/2023 In The 14 Days Before Symptom Onset, Have You Had Close Contact With A Person Who Is Under Investigation For COVID-19 While That Person Was Ill? No [email or web address] Information not available 01/21/2023 Are You Deaf Or Do You Have Serious Difficulty Hearing? Yes Patient Wears Hearing Aids. Information not available 01/21/2023 What Type Of Diet Are You Following? REGULAR MIGRATION.[id number] [id number] Information not available 12/17/2022 Which Illicit Or Recreational Drugs Have You Used? None [email or web address] Information not available 01/21/2023 Have There Been Any Changes To Your Family Or Social Situation? No [email or web address] Information not available 01/21/2023 Do You Use Insect Repellent Routinely? Yes [email or web address] Information not available 01/21/2023 Where Do You Live? SingleLevelHouse With Basement [email or web address] Information not available 01/21/2023 Presence Of Domestic [...] Carbon Monoxide Detectors In Your Home? Yes [email or web address] Information not available 01/21/2023 Do You Use Sunscreen Routinely? Yes [email or web address] Information not available 01/21/2023 Has Tobacco Cessation Counseling Been Provided? No [email or web address] Information not available 01/21/2023 Do You Have Difficulty Walking Or Climbing Stairs? No [email or web address] Information not available 01/21/2023 Do You Have Any Dietary Restrictions? No [email or web address] Information not available 01/21/2023 Sex: Unknown Functional Status Question Answer Note LastModified by Organizat ion Details LastModified Time Do you use any illicit or recreational drugs? No [email or web address] Information not available 01/21/2023 What is your level of alcohol consumption? Occasional Social drinking on holidays and vacations Information not available 01/20/2023 Do you or have you ever used smokeless tobacco? Never used smokeless tobacco [id number] Information not available 12/17/2022 Do you have transportation difficulties? No [email or web address] Information not available 01/21/2023 Are you able to walk? YESWOREST [email or web address] Information not available 01/21/2023 Do you have difficulty doing errands alone? No [email or web address] Information not available 01/21/2023 Are you able to care for yourself? Yes [email or web address] Information not available 01/21/2023 What is your occupation? retired Information not available 01/21/2023 Do you have difficulty dressing or bathing? No [email or web address] Information not available 01/21/2023 Do you or have you ever used e-cigarettes or vape? Never used electronic cigarettes [email or web address] Information not available 01/21/2023 Mental Status Question Answer Note LastModified by Organization D etails LastModified Time Do you have difficulty concentrating, remembering or making decisions? No [email or web address] Information no t available 01/21/2023 Family History Relationship Description Onset Age of this Age Resolved Age Notes LastModified by Organization Details LastModified Time Mother Hypertensive disorder [id number] Not available 12/17/2022 02:46:58 Father Fibrosis of lung Pulmon clemente fibros is Not available 01/25/2024 08:19:18 Brother Malignant tumor of oral cavity [email or web address] Not available 05/2024 08:02:12 Medical History Condition Response BLINDNESS N RHEUMATIC FEVER N KIDNEY STONES N BLADDER PROBLEMS N OTHER # 1 N POLIO N LUNG DISEASE/DISORDER N COPD N RADIATION / CHEMOTHERAPY N Other # 2 N BLOOD DISEASES N SURGERY N EAR OR HEARING PROBLEMS N MUMPS N BOWEL PROBLEMS N FEMALE PROBLEMS / INFECTIONS N DEPRESSION (INCLUDING POST ) N STROKE/TIA N THYROID DISEASE N ULCERS N BENIGN PROSTATIC HYPERPLASIA N MEASLES N CERVICALGIA N TB SKIN TEST N MYOCARDIAL INFARCTION N OBESITY N PARAPELGIA N GERD/NAUSEA N ANEURYSM N URINARY/BLADDER/KIDNEY PROBLEMS N CORONARY ARTERY DISEASE (CAD) N INPATIENT PSYCH CARE N MENIERE'S DISEASE N ADDICTION CONCERNS N [...] GLAUCOMA N FOOT PROBLEM N DIVERTICULITIS N CHICKENPOX N SLEEP APNEA N ALLERGIES/HAYFEVER N INFECTIOUS DISEASE N HEART ARRHYTHMIA N PROSTATE N INSOMNIA N HIGH CHOLESTEROL / HYPERLIPIDEMIA N HYPERTHYROIDISM N EYE PROBLEMS N EATING DISORDER N NEUROLOGICAL PROBLEMS N EDEMA N CHRONIC PAIN SYNDROME N HYPOTHYROIDISM N CAROTID BLOCKAGE N CONSTIPATION N BACK / NECK PROBLEMS N HAVE YOU BEEN HOSPITALIZED OR SEEN IN [facility] ER IN THE PAST YEAR ? N ATHEROSCLEROSIS [...] DISORDER N ALZHEIMER'S DISEASE N PAIN N HERPES N DEMENTIA N HEADACHES/MIGRAINES N SEIZURES/EPILEPSY N VASCULAR DISEASE N PACEMAKER N DIZZINESS N HEART DISEASE/HEART PROBLEMS N KIDNEY DISEASE N DEVELOPMENTAL OR BEHAVIORAL DISORDERS N MULTIPLE SCLEROSIS N SCARLET FEVER N MENTAL DISORDER/ILLNESS N CARDIAC ARRHYTHMIA N CANCER: SPECIFY N ANESTHESIA COMPLICATIONS N PNEUMONIA N ATRIAL FIBRILLATION N PULMONARY EMBOLISM N AUTOIMMUNE DISEASE N Gynecological HistoryNo gynecological history recorded. Obstetrics History GPAL:G 0 P 0 0 0 0 Immunizations Vaccine Type Date Status Note Provider Nam e and Address Organization Details Recorded Time COVID-19, mRNA, LNP-S, PF, 30 mcg/0.3 mL dose 1 completed Not Available [facility] 12/17/2022 03:13:57 COVID-19, mRNA, LNP-S, PF, 30 mcg/0.3 mL dose 1 completed Not Available [facility] 12/17/2022 03:13:58 Pneumococcal conjugate PCV 13 9 completed Not Available [facility] 12/17/2022 03:13:58 pneumococcal polysaccharide PPV23 0 completed Not Available [facility] 12/17/2022 03:13:58 Past Encounters Encounter ID Performer Location Encounter Start Date Encounter Closed Date Diagnosis/Indication Diagnosis SNOMED-CT Code Diagnosis ICD10 Code Diagnosis Note [id number] Lis Donis MD [facility] Primary Care [place] [address] [facility] [address] [facility] [place] [address] 12/27/2020 00:00:00 01/15/2021 16:24:06 [id number] Lis Donis MD [facility] Primary [place] [address] [facility] [address] [place] [address] 12/30/2021 00:00:00 12/30/2021 09:08:23 [id number] Lis Donis MD [facility] Primary [place] [address] [facility] [facility] [place] [address] 01/21/2023 12:00:20 01/21/2023 12:49:06 Adult health examination 937191604 Z00.00 Z13.1 DEXA ordered Screening for disorder 101634515 Z13.9 Postmenopausal state 764 97307 Z78.0 Vitamin D deficiency 347 20350 E55.9 Hyperlipidemia 59361481 E78.5 Z79.926 [id number] Lis Donis MD [facility] Primary [place] [address] [facility] [address] [place] [address] 01/25/2024 08:00:05 01/25/2024 08:32:29 Adult health examination 502470892 Z00.00 Z13.1 DEXA repeat due 04/12Mammog mt repeat due 01/10Prevna r 13 done 2019Pneumo vax 23 done 2019Shingr ix series 11/10 and 01/08Contin ue flu vaccine yearlyCovi d booster per cdc guidelines Recommend prevnar 20Check fasting labsColono scopy 2017 repeat 2026 Screening for disorder 627222344 Z13.9 Vitamin D deficiency 347 20312 E55.9 Hyperlipidemia 96101291 E78.5 Z79.899 Osteopenia 001753030 M85 .80 continue daily walkingcal cium + D bidrepeat dexa 2024 Screening for malignant neoplasm of breast 939112515 Z12.39 left breastlobu lar carcinomas /p excision 05/10s/p chemo and radiationm ammogram/M RI 01/09 normal, repeat imaging in [address] Mas Health Concerns Section Related Observation LastModified by Organization Detai ls LastModified Time None Recorded Concern Status LastModified by Organization Details LastModified Time None Recorded Advance Directives Directive Y: Payers Insurance Date Sequence Insurance Name Policy Number Policy Michael Covered Member ID Michael Member ID Guarantor Name 03/03/2024 1 [employer] (MEDICARE REPLACEMENT/ ADVANTAGE - HMO) [id number] Aggie I Uszi [id number] Aggie I Suzi 01/25/2024 1 [employer] (MEDICARE REPLACEMENT/ ADVANTAGE - PPO) Aggie Suzi [id number] Aggie I Suzi Notes Date Note Type Note Provider Name and Address Organization Details Recorded Time 01/21/2023 text/html here for wellness exam. no chest pain, no sob Lis Donis MD [address], [place], [address], [employer] 02/13/2023 17:41:43 01/25/2024 text/html Here for wellness exam. Has completed her chemo and radiation for left breast cancer, port a cath removed. Feeling well. No chest pain or sob, appetite is good Lis Donis MD [address], [place], [address], [employer] 01/25/2024 08:36:50 OBGyn Episode No OBEpisode recorded.
--- OUTSIDE RECORDS SUMMARY | 2025-05-11 12:21 | XMS_ITS | Clinical Summary ---
Author Organization [facility] Rachel Lynn Address [address] [place] [address] Care Team Providers Care Travel Med Surg Rn Name Role Phone Raheem Gibson MD Primary Care Provider [phone] Allergies No known active allergies Medications Glucosamine [...] Encounters Date Type Department Care Team Description 05/03/2025 External Device Data [facility] ABSTRACTION Provider, Abstract 05/02/2025 External Device Data [facility] ABSTRACTION Provider, Abstract 04/11/2025 External Device Data [place] ABSTRACTION Provider, Abstract 04/04/2025 External Device Data [place] ABSTRACTION Provider, Abstract 03/14/2025 External Device Data [place] ABSTRACTION Provider, Abstract 03/09/2025 External Device Data [place] ABSTRACTION Provider, Abstract 03/08/2025 External Device Data [place] ABSTRACTION Provider, Abstract 03/07/2025 External Device Data [place] ABSTRACTION Provider, Abstract 03/02/2025 2:45 PM CDT Office Visit [facility] Oncology and Hematology [facility] [address] [place] [address] Deuce Mas MD Malignant neoplasm of upper-outer quadrant of left breast in female, estrogen receptor negative (CMS/HCC) (Primary Dx) 02/24/2025 Orders Only [facility] Oncology and [facility] [address] [place] [address] Deuce Mas MD from Last 3 Months Immunizations Immunization Administration Dates Next Due (SocialF5)(12 YR UP) COVID-19 VACCINE - EMERGENCY USE AUTHORIZATION, MRNA, [id number](PF) 30 MCG/0.3 ML IM SUSP 12/19/2020,11/21/2020 Family [...] Sign Reading Time Taken Comments Blood Pressure 94/64 03/02/2025 2:37 PM CDT Pulse 77 03/02/2025 2:33 PM CDT Temperature 35.9 C (96.7 F) 03/02/2025 2:33 PM CDT Respiratory Rate 15 03/02/2025 2:33 PM CDT Oxygen Saturation 98% 03/02/2025 2:33 PM CDT Inhaled Oxygen Concentration - - Weight 50.8 kg (112 lb) 03/02/2025 2:33 PM CDT Height 167.6 cm (5' 6) 06/04/2023 9:01 AM CDT Body Mass Index 18.08 06/04/2023 9:01 AM CDT Plan of Treatment Upcoming Encounters Date Type Department Care Team (Late st Contact Info) Description 07/14/2025 12:45 PM CDT Office Visit [facility] Oncology and Hematology - [place] [address] [facility] [address] [place] [address] Deuce Mas MD [address] [facility] [email or web address] [address] [place] [address] Health Maintenance Due Date Last Done Comments DTAP/TDAP/TD VACCINES (1 - Tdap) 1972 FIT-DNA Q 3 years 1998 FIT/FOBT Q 1 year 1998 Flex Sig/CT Colonography Q 5 years 1998 ZOSTER VACCINE (1 of 2) 2003 OSTEOPOROSIS SCREENING 2018 COVID-19 Vaccine ( season) 06/19/202412/2020, 11/21/2020 BREAST CANCER SCREENING 10/29/2024 10/29/19 24, 10/29/2023, 02/12/2023 INFLUENZA VACCINE (#1) 2025 COLORECTAL SCREENING 10/15/2027 10/15/2017, 10/14/20 17 Colorectal Cancer Screening 10/15/2027 RSV VACCINE (60+ or ) (1 - 1-dose 75+ series) 2028 PNEUMOCOCCAL VACCINE 50+ YEARS Completed 12/29/2019 , 01/04/2019 Procedures Procedure Name Priority Date/Time Associated Diagnosis Comments COMPREHENSIVE METABOLIC PANEL Routine 02/23/2025 9:30 AM CDT MAMMO DIAGNOSTIC UNI RIGHT W OR WO CAD Routine 10/29/2023 11:20 AM OIL SPRAYER from Last 3 Months or Most Recently Relevant to Health Maintenance Results * COMPREHENSIVE METABOLIC PANEL (02/23/2025 9:30 AM CDT) Blood Deuce Mas MD CHEMISTRY ORDERABLES Final Resu lt * MAMMO DIAGNOSTIC UNI RIGHT W OR WO CAD (10/29/2023 11:20 AM OIL SPRAYER) Anatomical Region Laterality Modality Breast Right Mammography Deuce Mas MD MAMMO ORDERABLES Final Result from Last 3 Months or Most Recently Relevant to Health Maintenance Insurance [facility] MCR Care Teams Travel Med Surg Rn Relationship Specialty Start Date End Date Raheem Gibson MD [address] [place] [address] [address] [place] [id number] PCP - General Family Practice 11/01/24
== END 2025-05-11 12:17 | disposition home or self-care (01) ==
LOC: ANHIMG 12:19
PROVIDERS: PCP Family Medicine; Referring Provider Internal Medicine Hematology & Oncology; Visit Provider Surgery
DX: Z12.31 Encounter for screening mammogram for malignant neoplasm of breast (principal); R92.8 Other abnormal and inconclusive findings on diagnostic imaging of breast; Z90.12 Acquired absence of left breast and nipple; Z85.3 Personal history of malignant neoplasm of breast
CPT/HCPCS: 77063; 77067

== ENCOUNTER 2025-05-15 13:48 | Outpatient (CLI) | payer MEDICARE, SELFPAY ==
--- NOTE | ~2025-05-15 | MM_ITS ---
EXAMINATION: MM diagnostic kristy LT w nupur HISTORY: Follow-up left breast calcifications TECHNIQUE: Additional 3-D tomosynthesis images of the left breast were performed and synthetic 2-D im ages were generated. CAD analysis was submitted and interpreted. COMPARISON: Comparison to multiple prior studies sequentially, with oldest reviewed study dated 04/02. BREAST PARENCHYMAL COMPOSITION: Dense: The breasts are extremely dense, which lowers the sensitivity of mammography. FINDINGS: There are pleomorphic calcifications clustered in the upper inner quadrant of the left queta st, posterior third. There are no suspicious masses or architectural distortion. IMPRESSION: 1. Clustered pleomorphic left breast calcifications upper inner quadrant, posterior third. 2. Stereotactic left breast biopsy recommended. BI-RADS category 4, suspicious findings. Reviewed, dictated and finalized at location B. IMPRESSION: 1. Clustered pleomorphic left breast calcifications upper inner quadrant, poste rior third. 2. Stereotactic left breast biopsy recommended. BI-RADS category 4, suspicious findings.
--- OUTSIDE RECORDS SUMMARY | 2025-05-15 13:53 | XMS_ITS | Continuity of Care Document ---
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 [address] [facility] [address], [address], [place], [place], [facility], . tel:[phone] [facility], [address] [place] [address] [address], [place], [place], [id number], tel:[phone] [facility] [place] No Information b-0 [phone]iss Shah. [address] [facility] [address], [address], [place], [address], [place]. tel:[phone] Family History Family Member Type Diagnosis Age At Onset No Information Payers Payer name Insurance type Covered libertarian ID Linnette espinoza(s) [employer] SOI CI [id number] Social History Type Description Quantity Date Captured [...]
--- OUTSIDE RECORDS SUMMARY | 2025-05-15 13:54 | XMS_ITS | Clinical Summary ---
Author Organization [facility] Rachel Lynn Address [address] [facility] [place] [address] Care Team Providers Care Client Delivery Manager Name Role Phone Raheem Gibson MD Primary Care Provider [phone] Allergies No known active allergies Medications Glucosamine [...] Abstract 03/02/2025 2:45 PM CDT Office Visit [facility] Oncology and Hematology [facility] [address] [place] [address] Deuce Mas MD Malignant neoplasm of upper-outer quadrant of left breast in female, estrogen receptor negative (CMS/HCC) (Primary Dx) 02/24/2025 Orders Only [facility] Oncology and [facility] [address] [place] [address] Deuce Mas MD from Last 3 Months Immunizations Immunization Administration Dates Next Due ([employer])(12 YR UP) COVID-19 VACCINE - EMERGENCY USE AUTHORIZATION, MRNA, [id number](PF) 30 MCG/0.3 ML IM SUSP 12/19/2020,11/21/2020 Family [...] Description 07/14/2025 12:45 PM CDT Office Visit [facility] Oncology and Hematology - [place] [address] [facility] [address] [place] [address] Deuce Mas MD [address] [facility] [employer] [address] [place] [address] Health Maintenance Due Date Last [...] OR WO CAD Routine 10/29/2023 11:20 AM ADMINISTRATOR PESTICIDE from Last 3 Months or Most Recently Relevant to Health Maintenance Results * COMPREHENSIVE METABOLIC PANEL (02/23/2025 9:30 AM CDT) Blood Deuce Mas MD CHEMISTRY ORDERABLES Final Resu lt * MAMMO DIAGNOSTIC UNI RIGHT W OR WO CAD (10/29/2023 11:20 AM ADMINISTRATOR PESTICIDE) Anatomical Region Laterality Modality Breast Right Mammography Deuce Mas MD MAMMO ORDERABLES Final Result from Last 3 Months or Most Recently Relevant to Health Maintenance Insurance [facility] MCR Care Teams Client Delivery Manager Relationship Specialty Start Date End Date Raheem Gibson MD [address] [place] [address] [address] [place] [phone] PCP - General Family Practice 11/01/24
--- OUTSIDE RECORDS SUMMARY | 2025-05-15 13:54 | XMS_ITS | Data Portability ---
Author Organization [facility], Main Office Address [address] [place] [address] Assessment No assessment recorded. Plan of Treatment [...] D, 25-hydroxy , total, serum 2022 023 [facility] (Lab), [address] [place], [address], 3 01:00:05 lipid panel, serum 2022 023 [facility] (Lab), [address] [place], [address], 3 21:05:22 hepatic function panel, serum 2022 023 [facility] (Lab), [address] [place], [address], 21:05:28 CBC w/ auto diff 2022 023 [facility] (Lab), [address] [place], [address], 19:51:40 BMP, serum or plasma 2022 023 [facility] (Lab), [address] [place], [address], 21:05:17 Referral None recorded. Procedures None recorded. Surgeries None recorded. Imaging DEXA [email or web address] [place] [id number] Imaging, 2022 Leah Zendejas, [address], [address], 10:03:18 Medication Orders None recorded. Patient TargetsNo targets recorded. Patient Instructions Encounter Date Encounter Id Patient Instructions Last Modified By Organization Details Last Modified Time 01/21/2023 [id number] dementia rating scale-2* Not available 01/26/2023 15:47:19 alcohol misuse* Not available 01/26/2023 15:47:26 depression screening* Not available 01/26/2023 15:47:31 multi-dimensiona l health assessment questionnaire* Not available 01/26/2023 15:47:14 Personalized [facility] Plan and Screening Recommendations Advance Directives [...] no recommendations. Not available 01/20/2023 13:02:50 01/25/2024 [id number] dementia rating scale-2* [email or web address] Not available 01/25/2024 09:00:59 Personalized [facility] Plan and Screening Recommendations Advance Directives [...] Screening: Active diagnosis, Continue current treatment plan [id number] Not available 01/25/2024 08:02:36 Reason for Referral [...] um and D. Ronak mccain [place]: [facility] . 2. Ashwin rogel MF, Stanley grossman [place], Javon off-F haileyar i PABON, et al. Evalu ation , treat ment, and preve ntion of vitam in D defic iency : an Endoc rine Socie ty clini trace pract ice guide line. JCEM. 2010; 96(7) :1911 -30. Not Available [facility] ([facility]) [address] [place], [address], 01/04/2022 08:18:58 01/04/20 22 01/04/2022 TSH TSH 3.280 uIU/m L 0.450- 4.500 Not Available [facility] ([facility]) [address] [place], [address], 01/04/2022 08:18:58 01/04/20 22 01/04/2022 LIPID PANEL cholesterol, total 232 mg/dL 100-19 9 above high normal Not Available [facility] ([facility]) [address] [place], [address], 01/04/2022 08:18:57 01/04/20 22 01/04/2022 LIPID PANEL triglyceride s 55 mg/dL 0-149 Not Available [facility] ([facility]) [address] [place], [address], 01/04/2022 08:18:57 01/04/20 22 01/04/2022 LIPID PANEL HDL cholesterol 108 mg/dL >39 Not Available [facility] [address] [place], [address], 01/04/2022 08:18:57 01/04/20 22 01/04/2022 LIPID PANEL VLDL cholesterol trace 9 mg/dL 5-40 Not Available [facility] ([facility]) [address] [place], [address], 01/04/2022 08:18:57 01/04/20 22 01/04/2022 LIPID PANEL LDL chol calc ([facility]) 115 mg/dL 0-99 above high normal Not Available [facility] ([facility]) [address] [place], [address], 01/04/2022 08:18:57 01/04/20 22 01/04/2022 LIPID PANEL comment: care management assistant Not Available [facility] ([facility]) [address] [place], [address], 01/04/2022 08:18:57 01/04/20 22 01/04/2022 BASIC METAB OLIC PANEL (8) glucose 83 mg/dL 65-99 Not Available [facility] ([facility]) [address] [place], [address], 01/04/2022 08:18:57 01/04/20 22 01/04/2022 BASIC METAB OLIC PANEL (8) BUN 17 mg/dL 8-27 Not Available [facility] ([facility]) [address] [place], [address], 01/04/2022 08:18:57 01/04/20 22 01/04/2022 BASIC METAB OLIC PANEL (8) creatinine 0.99 mg/dL 0.57-1 .00 Not Available [facility] ([facility]) [address] [place], [address], 01/04/2022 08:18:57 01/04/20 22 01/04/2022 BASIC METAB OLIC PANEL (8) eGFR 62 mL/mi n/1.7 3 >59 Not Available [facility] ([facility]) [address] [place], [address], 01/04/2022 08:18:57 01/04/20 22 01/04/2022 BASIC METAB OLIC PANEL (8) BUN/creatini ne ratio 17 12-28 Not Available [facility] ([facility]) [address] [place], [address], 01/04/2022 08:18:57 01/04/20 22 01/04/2022 BASIC METAB OLIC PANEL (8) sodium 141 mmol/ L 134-14 4 Not Available [facility] ([facility]) [address] [facility] [place] [place], [address], 01/04/2022 08:18:57 01/04/20 22 01/04/2022 BASIC METAB OLIC PANEL (8) potassium 4.3 mmol/ L 3.5-5. 2 Not Available [facility] ([facility]) [address] [place], [address], 01/04/2022 08:18:57 01/04/20 22 01/04/2022 BASIC METAB OLIC PANEL (8) chloride 101 mmol/ L 96-106 Not Available [facility] ([facility]) [address] [place], [address], 01/04/2022 08:18:57 01/04/20 22 01/04/2022 BASIC METAB OLIC PANEL (8) carbon dioxide, total 22 mmol/ L 20-29 Not Available [facility] ([facility]) [address] [place], [address], 01/04/2022 08:18:57 01/04/20 22 01/04/2022 BASIC METAB OLIC PANEL (8) calcium 9.7 mg/dL 8.7-10 .3 Not Available [facility] ([facility]) [address] [facility], [place], [address], 01/04/2022 08:18:57 01/04/20 22 01/04/2022 CBC WITH DIFFE RENTI AL/PL ATELE T WBC 2.6 x10e3 /uL 3.4-10 .8 below low normal Not Available [facility] ([facility]) [address] [facility], [place], [address], 01/04/2022 08:18:56 01/04/20 22 01/04/2022 CBC WITH DIFFE RENTI AL/PL ATELE T RBC 3.74 x10e6 /uL 3.77-5 .28 below low normal Not Available [facility] ([facility]) [address] [facility], [place], [address], 01/04/2022 08:18:56 01/04/20 22 01/04/2022 CBC WITH DIFFE RENTI AL/PL ATELE T hemoglobin 11.6 g/dL 11.1-1 5.9 Not Available [facility] ([facility]) [address] [place], [address], 01/04/2022 08:18:56 01/04/20 22 01/04/2022 CBC WITH DIFFE RENTI AL/PL ATELE T hematocrit 33.7 % 34.0-4 6.6 below low normal Not Available [facility] ([facility]) [address] [place], [address], 01/04/2022 08:18:56 01/04/20 22 01/04/2022 CBC WITH DIFFE RENTI AL/PL ATELE T MCV 90 fL 79-97 Not Available [facility] ([facility]) [address] [place], [address], 01/04/2022 08:18:56 01/04/20 22 01/04/2022 CBC WITH DIFFE RENTI AL/PL ATELE T MCH 31.0 pg 26.6-3 3.0 Not Available [facility] ([facility]) [address] [facility], [place], [address], 01/04/2022 08:18:56 01/04/20 22 01/04/2022 CBC WITH DIFFE RENTI AL/PL ATELE T MCHC 34.4 g/dL 31.5-3 5.7 Not Available [facility] ([facility]) [address] [facility], [place], [address], 01/04/2022 08:18:56 01/04/20 22 01/04/2022 CBC WITH DIFFE RENTI AL/PL ATELE T RDW 12.2 % 11.7-1 5.4 Not Available [facility] ([facility]) [address] [facility], [place], [address], 01/04/2022 08:18:56 01/04/20 22 01/04/2022 CBC WITH DIFFE RENTI AL/PL ATELE T platelets 215 x10e3 /uL 150-45 0 Not Available [facility] ([facility]) [address] [facility], [place], [address], 01/04/2022 08:18:56 01/04/20 22 01/04/2022 CBC WITH DIFFE RENTI AL/PL ATELE T neutrophils 70 % not estab. Not Available [facility] ([facility]) [address] [place], [address], 01/04/2022 08:18:56 01/04/20 22 01/04/2022 CBC WITH DIFFE RENTI AL/PL ATELE T lymphs 22 % not estab. Not Available [facility] ([facility]) [address] [place], [address], 01/04/2022 08:18:56 01/04/20 22 01/04/2022 CBC WITH DIFFE RENTI AL/PL ATELE T monocytes 8 % not estab. Not Available [facility] ([facility]) [address] [place], [address], 01/04/2022 08:18:56 01/04/20 22 01/04/2022 CBC WITH DIFFE RENTI AL/PL ATELE T eos 0 % not estab. Not Available [facility] ([facility]) [address] [facility], [place], [address], 01/04/2022 08:18:56 01/04/20 22 01/04/2022 CBC WITH DIFFE RENTI AL/PL ATELE T basos 0 % not estab. Not Available [facility] ([facility]) [address] [place], [address], 01/04/2022 08:18:56 01/04/20 22 01/04/2022 CBC WITH DIFFE RENTI AL/PL ATELE T immature cells care management assistant Not Available [facility] ([facility]) [address] [place], [address], 01/04/2022 08:18:56 01/04/20 22 01/04/2022 CBC WITH DIFFE RENTI AL/PL ATELE T neutrophils (absolute) 1.8 x10e3 /uL 1.4-7. 0 Not Available [facility] ([facility]) [address] [place], [address], 01/04/2022 08:18:56 01/04/20 22 01/04/2022 CBC WITH DIFFE RENTI AL/PL ATELE T lymphs (absolute) 0.6 x10e3 /uL 0.7-3. 1 below low normal Not Available [facility] ([facility]) [address] [place], [address], 01/04/2022 08:18:56 01/04/20 22 01/04/2022 CBC WITH DIFFE RENTI AL/PL ATELE T monocytes(ab solute) 0.2 x10e3 /uL 0.1-0. 9 Not Available [facility] ([facility]) [address] [place], [address], 01/04/2022 08:18:56 01/04/20 22 01/04/2022 CBC WITH DIFFE RENTI AL/PL ATELE T eos (absolute) 0.0 x10e3 /uL 0.0-0. 4 Not Available [facility] ([facility]) [address] [facility], [place], [address], 01/04/2022 08:18:56 01/04/20 22 01/04/2022 CBC WITH DIFFE RENTI AL/PL ATELE T baso (absolute) 0.0 x10e3 /uL 0.0-0. 2 Not Available [facility] ([facility]) [address] [facility], [place], [address], 01/04/2022 08:18:56 01/04/20 22 01/04/2022 CBC WITH DIFFE RENTI AL/PL ATELE T immature granulocytes 0 % not estab. Not Available [facility] ([facility]) [address] [facility], [place], [address], 01/04/2022 08:18:56 01/04/20 22 01/04/2022 CBC WITH DIFFE RENTI AL/PL ATELE T immature grans (abs) 0.0 x10e3 /uL 0.0-0. 1 Not Available [facility] ([facility]) [address] [facility], [place], [address], 01/04/2022 08:18:56 01/04/20 22 01/04/2022 CBC WITH DIFFE RENTI AL/PL ATELE T NRBC care management assistant Not Available [facility] ([facility]) [address] [facility], [place], [address], 01/04/2022 08:18:56 01/04/20 22 01/04/2022 CBC WITH DIFFE RENTI AL/PL ATELE T hematology comments: care management assistant Not Available [facility] ([facility]) [address] [facility], [place], [address], 01/04/2022 08:18:56 02/12/20 22 02/12/2022 CBC/D IFF AMBIG UOUS DEFAU LT MCH 31.1 pg 26.6-3 3.0 Not Available [facility] ([facility]) [address] [facility], [place], [address], 02/12/2022 05:09:41 02/12/20 22 02/12/2022 CBC/D IFF AMBIG UOUS DEFAU LT WBC 2.9 x10e3 /uL 3.4-10 .8 below low normal Not Available [facility] ([facility]) [address] [facility], [place], [address], 02/12/2022 05:09:41 02/12/20 22 02/12/2022 CBC/D IFF AMBIG UOUS DEFAU LT RBC 4.11 x10e6 /uL 3.77-5 .28 Not Available [facility] ([facility]) [address] [facility], [place], [address], 02/12/2022 05:09:41 02/12/20 22 02/12/2022 CBC/D IFF AMBIG UOUS DEFAU LT hemoglobin 12.8 g/dL 11.1-1 5.9 Not Available [facility] ([facility]) [address] [place], [address], 02/12/2022 05:09:41 02/12/20 22 02/12/2022 CBC/D IFF AMBIG UOUS DEFAU LT hematocrit 38.1 % 34.0-4 6.6 Not Available [facility] ([facility]) [address] [place], [address], 02/12/2022 05:09:41 02/12/20 22 02/12/2022 CBC/D IFF AMBIG UOUS DEFAU LT MCV 93 fL 79-97 Not Available [facility] ([facility]) [address] [place], [address], 02/12/2022 05:09:41 02/12/20 22 02/12/2022 CBC/D IFF AMBIG UOUS DEFAU LT MCHC 33.6 g/dL 31.5-3 5.7 Not Available [facility] ([facility]) [address] [facility], [place], [address], 02/12/2022 05:09:41 02/12/20 22 02/12/2022 CBC/D IFF AMBIG UOUS DEFAU LT RDW 12.6 % 11.7-1 5.4 Not Available [facility] ([facility]) [address] [facility], [place], [address], 02/12/2022 05:09:41 02/12/20 22 02/12/2022 CBC/D IFF AMBIG UOUS DEFAU LT platelets 180 x10e3 /uL 150-45 0 Not Available [facility] ([facility]) [address] [facility], [place], [address], 02/12/2022 05:09:41 02/12/20 22 02/12/2022 CBC/D IFF AMBIG UOUS DEFAU LT neutrophils 62 % not estab. Not Available [facility] ([facility]) [address] [facility], [place], [address], 02/12/2022 05:09:41 02/12/20 22 02/12/2022 CBC/D IFF AMBIG UOUS DEFAU LT lymphs 28 % not estab. Not Available [facility] ([facility]) [address] [facility], [place], [address], 02/12/2022 05:09:41 02/12/20 22 02/12/2022 CBC/D IFF AMBIG UOUS DEFAU LT monocytes 9 % not estab. Not Available [facility] ([facility]) [address] [facility], [place], [address], 02/12/2022 05:09:41 02/12/20 22 02/12/2022 CBC/D IFF AMBIG UOUS DEFAU LT eos 0 % not estab. Not Available [facility] ([facility]) [address] [place], [address], 02/12/2022 05:09:41 02/12/20 22 02/12/2022 CBC/D IFF AMBIG UOUS DEFAU LT basos 1 % not estab. Not Available [facility] ([facility]) [address] [facility], [place], [address], 02/12/2022 05:09:41 02/12/20 22 02/12/2022 CBC/D IFF AMBIG UOUS DEFAU LT immature cells care management assistant Not Available [facility] ([facility]) [address] [place], [address], 02/12/2022 05:09:41 02/12/20 22 02/12/2022 CBC/D IFF AMBIG UOUS DEFAU LT neutrophils (absolute) 1.8 x10e3 /uL 1.4-7. 0 Not Available [facility] ([facility]) [address] [place], [address], 02/12/2022 05:09:41 02/12/20 22 02/12/2022 CBC/D IFF AMBIG UOUS DEFAU LT lymphs (absolute) 0.8 x10e3 /uL 0.7-3. 1 Not Available [facility] ([facility]) [address] [place], [address], 02/12/2022 05:09:41 02/12/20 22 02/12/2022 CBC/D IFF AMBIG UOUS DEFAU LT monocytes(ab solute) 0.3 x10e3 /uL 0.1-0. 9 Not Available [facility] ([facility]) [address] [place], [address], 02/12/2022 05:09:41 02/12/20 22 02/12/2022 CBC/D IFF AMBIG UOUS DEFAU LT eos (absolute) 0.0 x10e3 /uL 0.0-0. 4 Not Available [facility] ([facility]) [address] [facility], [place], [address], 02/12/2022 05:09:41 02/12/20 22 02/12/2022 CBC/D IFF AMBIG UOUS DEFAU LT baso (absolute) 0.0 x10e3 /uL 0.0-0. 2 Not Available [facility] ([facility]) [address] [place], [address], 02/12/2022 05:09:41 02/12/20 22 02/12/2022 CBC/D IFF AMBIG UOUS DEFAU LT immature granulocytes 0 % not estab. Not Available [facility] ([facility]) [address] [facility], [place], [address], 02/12/2022 05:09:41 02/12/20 22 02/12/2022 CBC/D IFF AMBIG UOUS DEFAU LT immature grans (abs) 0.0 x10e3 /uL 0.0-0. 1 Not Available [facility] ([facility]) [address] [place], [address], 02/12/2022 05:09:41 02/12/20 22 02/12/2022 CBC/D IFF AMBIG UOUS DEFAU LT NRBC care management assistant Not Available [facility] ([facility]) [address] [place], [address], 02/12/2022 05:09:41 02/12/20 22 02/12/2022 CBC/D IFF AMBIG UOUS DEFAU LT hematology comments: care management assistant A hand- writt en panel /prof mariam [...] ciate your busin ess. Not Available [facility] ([facility]) [address] [place], [address], 02/12/2022 05:09:41 03/11/20 22 03/12/2022 CBC WITH DIFFE RENTI AL/PL ATELE T WBC 3.8 x10e3 /uL 3.4-10 .8 Not Available [facility] ([facility]) [address] [place], [address], 03/12/2022 03:08:22 03/11/20 22 03/12/2022 CBC WITH DIFFE RENTI AL/PL ATELE T MCHC 33.3 g/dL 31.5-3 5.7 Not Available [facility] ([facility]) [address] [place], [address], 03/12/2022 03:08:22 03/11/20 22 03/12/2022 CBC WITH DIFFE RENTI AL/PL ATELE T RBC 4.39 x10e6 /uL 3.77-5 .28 Not Available [facility] ([facility]) [address] [place], [address], 03/12/2022 03:08:22 03/11/20 22 03/12/2022 CBC WITH DIFFE RENTI AL/PL ATELE T hemoglobin 13.4 g/dL 11.1-1 5.9 Not Available [facility] ([facility]) [address] [place], [address], 03/12/2022 03:08:22 03/11/20 22 03/12/2022 CBC WITH DIFFE RENTI AL/PL ATELE T hematocrit 40.2 % 34.0-4 6.6 Not Available [facility] ([facility]) [address] [facility], [place], [address], 03/12/2022 03:08:22 03/11/20 22 03/12/2022 CBC WITH DIFFE RENTI AL/PL ATELE T MCV 92 fL 79-97 Not Available [facility] ([facility]) [address] [facility], [place], [address], 03/12/2022 03:08:22 03/11/20 22 03/12/2022 CBC WITH DIFFE RENTI AL/PL ATELE T MCH 30.5 pg 26.6-3 3.0 Not Available [facility] ([facility]) [address] [facility], [place], [address], 03/12/2022 03:08:22 03/11/20 22 03/12/2022 CBC WITH DIFFE RENTI AL/PL ATELE T RDW 11.9 % 11.7-1 5.4 Not Available [facility] ([facility]) [address] [place], [address], 03/12/2022 03:08:22 03/11/20 22 03/12/2022 CBC WITH DIFFE RENTI AL/PL ATELE T platelets 185 x10e3 /uL 150-45 0 Not Available [facility] ([facility]) [address] [facility], [place], [address], 03/12/2022 03:08:22 03/11/20 22 03/12/2022 CBC WITH DIFFE RENTI AL/PL ATELE T neutrophils 60 % not estab. Not Available [facility] ([facility]) [address] [place], [address], 03/12/2022 03:08:22 03/11/20 22 03/12/2022 CBC WITH DIFFE RENTI AL/PL ATELE T lymphs 29 % not estab. Not Available [facility] ([facility]) [address] [place], [address], 03/12/2022 03:08:22 03/11/20 22 03/12/2022 CBC WITH DIFFE RENTI AL/PL ATELE T monocytes 9 % not estab. Not Available [facility] ([facility]) [address] [place], [address], 03/12/2022 03:08:22 03/11/20 22 03/12/2022 CBC WITH DIFFE RENTI AL/PL ATELE T eos 1 % not estab. Not Available [facility] ([facility]) [address] [place], [address], 03/12/2022 03:08:22 03/11/20 22 03/12/2022 CBC WITH DIFFE RENTI AL/PL ATELE T basos 1 % not estab. Not Available [facility] ([facility]) [address] [place], [address], 03/12/2022 03:08:22 03/11/20 22 03/12/2022 CBC WITH DIFFE RENTI AL/PL ATELE T immature cells care management assistant Not Available [facility] ([facility]) [address] [place], [address], 03/12/2022 03:08:22 03/11/20 22 03/12/2022 CBC WITH DIFFE RENTI AL/PL ATELE T neutrophils (absolute) 2.3 x10e3 /uL 1.4-7. 0 Not Available [facility] ([facility]) [address] [place], [address], 03/12/2022 03:08:22 03/11/20 22 03/12/2022 CBC WITH DIFFE RENTI AL/PL ATELE T lymphs (absolute) 1.1 x10e3 /uL 0.7-3. 1 Not Available [facility] ([facility]) [address] [place], [address], 03/12/2022 03:08:22 03/11/20 22 03/12/2022 CBC WITH DIFFE RENTI AL/PL ATELE T monocytes(ab solute) 0.3 x10e3 /uL 0.1-0. 9 Not Available [facility] ([facility]) [address] [facility], [place], [address], 03/12/2022 03:08:22 03/11/20 22 03/12/2022 CBC WITH DIFFE RENTI AL/PL ATELE T eos (absolute) 0.0 x10e3 /uL 0.0-0. 4 Not Available [facility] ([facility]) [address] [place], [address], 03/12/2022 03:08:22 03/11/20 22 03/12/2022 CBC WITH DIFFE RENTI AL/PL ATELE T baso (absolute) 0.0 x10e3 /uL 0.0-0. 2 Not Available [facility] ([facility]) [address] [place], [address], 03/12/2022 03:08:22 03/11/20 22 03/12/2022 CBC WITH DIFFE RENTI AL/PL ATELE T immature granulocytes 0 % not estab. Not Available [facility] ([facility]) [address] [place], [address], 03/12/2022 03:08:22 03/11/20 22 03/12/2022 CBC WITH DIFFE RENTI AL/PL ATELE T immature grans (abs) 0.0 x10e3 /uL 0.0-0. 1 Not Available [facility] ([facility]) [address] [place], [address], 03/12/2022 03:08:22 03/11/20 22 03/12/2022 CBC WITH DIFFE RENTI AL/PL ATELE T NRBC care management assistant Not Available [facility] ([facility]) [address] [place], [address], 03/12/2022 03:08:22 03/11/20 22 03/12/2022 CBC WITH DIFFE MAGALIS AL/PL ATELE T hematology comments: care management assistant Not Available [facility] ([facility]) [address], [place], [address], 03/12/2022 03:08:22 01/22/20 23 01/21/2023 CBC/C OMPLE TE BLD COUNT W/DIF F white blood cells 3.2 x10'3 /uL 4.2-10 .8 low Not Available [facility] (Lab) [address] [place], [address], 01/21/2023 19:51:40 01/22/20 23 01/21/2023 CBC/C OMPLE TE BLD COUNT W/DIF F red blood cells 4.24 x10'6 /uL 3.80-5 .20 Not Available [facility] (Lab) [address] [place], [address], 01/21/2023 19:51:40 01/22/20 23 01/21/2023 CBC/C OMPLE TE BLD COUNT W/DIF F hemoglobin 12.5 g/dL 12.0-1 5.6 Not Available [facility] (Lab) [address] [place], [address], 01/21/2023 19:51:40 01/22/20 23 01/21/2023 CBC/C OMPLE TE BLD COUNT W/DIF F hematocrit 39.2 % 35.7-4 5.7 Not Available [facility] (Lab) [address] [place], [address], 01/21/2023 19:51:40 01/22/20 23 01/21/2023 CBC/C OMPLE TE BLD COUNT W/DIF F mean red cell volume 92.5 fL 82.0-9 9.0 Not Available [facility] (Lab) [address] [place], [address], 01/21/2023 19:51:40 01/22/20 23 01/21/2023 CBC/C OMPLE TE BLD COUNT W/DIF F mean red cell hemoglobin 29.5 pg 27.0-3 3.0 Not Available [facility] (Lab) [address] [place], [address], 01/21/2023 19:51:40 01/22/20 23 01/21/2023 CBC/C OMPLE TE BLD COUNT W/DIF F mean RBC HGB concentratio n 31.9 g/dL 31.0-3 6.0 Not Available [facility] (Lab) [address] [place], [address], 01/21/2023 19:51:40 01/22/20 23 01/21/2023 CBC/C OMPLE TE BLD COUNT W/DIF F red cell distribution width 13.2 % 11.8-1 5.5 Not Available [facility] (Lab) [address] [place], [address], 01/21/2023 19:51:40 01/22/20 23 01/21/2023 CBC/C OMPLE TE BLD COUNT W/DIF F platelets 222 x10'3 /uL 150-40 0 Not Available [facility] (Lab) [address] [place], [address], 01/21/2023 19:51:40 01/22/20 23 01/21/2023 CBC/C OMPLE TE BLD COUNT W/DIF F mean platelet volume 11.6 fL 9.0-12 .4 Not Available [facility] (Lab) [address] [place], [address], 01/21/2023 19:51:40 01/22/20 23 01/21/2023 CBC/C OMPLE TE BLD COUNT W/DIF F neutrophils 58.0 % 39.0-7 2.0 Not Available [facility] (Lab) [address] [place], [address], 01/21/2023 19:51:40 01/22/20 23 01/21/2023 CBC/C OMPLE TE BLD COUNT W/DIF F lymphocytes 31.0 % 16.0-4 7.0 Not Available [facility] (Lab) [address] [place], [address], 01/21/2023 19:51:40 01/22/20 23 01/21/2023 CBC/C OMPLE TE BLD COUNT W/DIF F monocytes 9.8 % 5.0-12 .0 Not Available [facility] (Lab) [address] [place], [address], 01/21/2023 19:51:40 01/22/20 23 01/21/2023 CBC/C OMPLE TE BLD COUNT W/DIF F eosinophils 0.3 % 1.0-7. 0 low Not Available [facility] (Lab) [address] [place], [address], 01/21/2023 19:51:40 01/22/20 23 01/21/2023 CBC/C OMPLE TE BLD COUNT W/DIF F basophils 0.6 % 0.0-2. 0 Not Available [facility] (Lab) [address] [place], [address], 01/21/2023 19:51:40 01/22/20 23 01/21/2023 CBC/C OMPLE TE BLD COUNT W/DIF F immature granulocytes 0.3 % 0.00-0 .50 Not Available [facility] (Lab) [address] [place], [address], 01/21/2023 19:51:40 01/22/20 23 01/21/2023 CBC/C OMPLE TE BLD COUNT W/DIF F neutrophils, absolute count 1.83 x10'3 /uL 1.5-8. 0 Not Available [facility] (Lab) [address] [place], [address], 01/21/2023 19:51:40 01/22/20 23 01/21/2023 CBC/C OMPLE TE BLD COUNT W/DIF F lymphocytes, absolute count 0.98 x10'3 /uL 1.07-3 .43 low Not Available [facility] (Lab) [address] [place], [address], 01/21/2023 19:51:40 01/22/20 23 01/21/2023 CBC/C OMPLE TE BLD COUNT W/DIF F monocytes, absolute count 0.31 x10'3 /uL 0.29-0 .99 Not Available [facility] (Lab) [address] [place], [address], 01/21/2023 19:51:40 01/22/20 23 01/21/2023 CBC/C OMPLE TE BLD COUNT W/DIF F eosinophils, absolute count 0.01 x10'3 /uL 0.02-0 .53 low Not Available [facility] (Lab) [address] [place], [address], 01/21/2023 19:51:40 01/22/20 23 01/21/2023 CBC/C OMPLE TE BLD COUNT W/DIF F basophils, absolute count 0.02 x10'3 /uL 0.01-0 .08 Not Available [facility] (Lab) [address] [place], [address], 01/21/2023 19:51:40 01/22/2001/21/2023 CBC/C OMPLE TE BLD COUNT W/DIF F immature granulocytes ,absolute 0.01 x10'3 /uL 0.00-0 .05 Not Available [facility] (Lab) [address] [place], [address], 01/21/2023 19:51:40 04/05/20 23 01/21/2023 CBC/C OMPLE TE BLD COUNT W/DIF F nucleated red blood cells 0.0 % -[address] [facility] (Lab) [address] [place], [address], 01/21/2023 19:51:40 01/22/20 23 01/21/2023 CBC/C OMPLE TE BLD COUNT W/DIF F NRBC# 0.00 x10'3 /uL Not Available [facility] (Lab) [address] [place], [address], 01/21/2023 19:51:40 01/22/20 23 01/21/2023 BASIC METAB OLIC PANEL sodium 140 mmol/ L 137-14 5 Not Available [facility] (Lab) [address] [place], [address], 01/21/2023 21:05:17 01/22/20 23 01/21/2023 BASIC METAB OLIC PANEL potassium 3.8 mmol/ L 3.5-5. 1 Not Available [facility] (Lab) [address] [place], [address], 01/21/2023 21:05:17 01/22/20 23 01/21/2023 BASIC METAB OLIC PANEL chloride 105 mmol/ L 98-107 Not Available [facility] (Lab) [address] [place], [address], 01/21/2023 21:05:17 01/22/20 23 01/21/2023 BASIC METAB OLIC PANEL carbon dioxide 27 mmol/ L 22-30 Not Available [facility] (Lab) [address] [place], [address], 01/21/2023 21:05:17 01/22/20 23 01/21/2023 BASIC METAB OLIC PANEL anion gap 11.8 mmol/ L 14-22 low Not Available [facility] (Lab) [address] [place], [address], 01/21/2023 21:05:17 01/22/20 23 01/21/2023 BASIC METAB OLIC PANEL glucose 85 mg/dL 70-99 Not Available [facility] (Lab) [address] [place], [address], 01/21/2023 21:05:17 01/22/20 23 01/21/2023 BASIC METAB OLIC PANEL BUN 20 mg/dL 8-19 high Not Available [facility] (Lab) [address] [place], [address], 01/21/2023 21:05:17 01/22/20 23 01/21/2023 BASIC METAB OLIC PANEL creatinine 0.79 mg/dL 0.66-1 .25 Not Available [facility] (Lab) [address] [place], [address], 01/21/2023 21:05:17 01/22/20 23 01/21/2023 BASIC METAB OLIC PANEL GFR >60 Refer ence Range : Thayne ge GFR Healt hy Adult : >60 [...] calcu lator is avail able on the [facility] websi te: https :[email or web address] malik.cortez alvarenga.indiana pitts/pr ofess ional s/kdo qi/gf r_cal culat or Not Available [facility] (Lab) [address] [place], [address], 01/21/2023 21:05:17 01/22/20 23 01/21/2023 BASIC METAB OLIC PANEL calcium 9.8 mg/dL 8.4-10 .2 Not Available [facility] (Lab) [address] [place], [address], 01/21/2023 21:05:17 01/22/20 23 01/21/2023 LIPID PANEL cholesterol 241 mg/dL 140-19 9 high NIH JUAN DIEGO NSUS RECOM MENDA TION FOR TEN STERO L: ADULT CHILD LOW RISK: <200 <170 BORDE RLINE : <200- 239 ----- HIGH RISK: >240 >200 Not Available [facility] (Lab) [address] [place], [address], 01/21/2023 21:07:35 01/22/20 23 01/21/2023 LIPID PANEL triglyceride s 47 mg/dL 0-150 NIH JUAN DIEGO NSUS REPOR T RECOM MENDA TION FOR TRIGL YCERI FRANC: ADULT CHILD LOW RISK: <150 ----- BODER LINE: 150-1 99 ----- HIGH RISK: >200 ----- Not Available [facility] (Lab) [address] [place], [address], 01/21/2023 21:07:35 01/22/20 23 01/21/2023 LIPID PANEL HDL cholesterol 127 mg/dL 40- Not Available [facility] (Lab) [address] [place], [address], 01/21/2023 21:07:35 01/22/20 01/21/2023 LIPID PANEL LDL [...] WILL NOT BE REPOR BETO. Not Available [facility] (Lab) [address] [place], [address], 01/21/2023 21:07:35 01/22/20 23 01/21/2023 HEPAT IC/LI CODEY PANEL alkaline phosphatase 48 U/L 38-126 Not Available [facility] (Lab) [address] [place], [address], 01/21/2023 21:05:28 01/22/20 23 01/21/2023 HEPAT IC/LI CODEY PANEL alanine aminotransfe rase 31 U/L 0-[address] [facility] (Lab) [address] [place], [address], 01/21/2023 21:05:28 01/22/20 23 01/21/2023 HEPAT IC/LI CODEY PANEL aspartate aminotransfe rase 34 U/L 15-[address] [facility] (Lab) [address] [place], [address], 01/21/2023 21:05:28 01/22/20 23 01/21/2023 HEPAT IC/LI CODEY PANEL bilirubin, total 0.60 mg/dL 0.20-1 .30 Not Available [facility] (Lab) [address] [place], [address], 01/21/2023 21:05:28 01/22/20 23 01/21/2023 HEPAT IC/LI CODEY PANEL bilirubin, conjugated (direct) 0.00 mg/dL 0.00-0 .30 Not Available [facility] (Lab) [address] [place], [address], 01/21/2023 21:05:28 01/22/20 23 01/21/2023 HEPAT IC/LI CODEY PANEL biliurubin,u ncong. (indirect) 0.30 mg/dL 0.00-1 .1 Not Available [facility] (Lab) [address] [place], [address], 01/21/2023 21:05:28 01/22/20 23 01/21/2023 HEPAT IC/LI CODEY PANEL total protein 7.4 g/dL 6.3-8. 2 Not Available [facility] (Lab) [address] [place], [address], 01/21/2023 21:05:28 01/22/20 23 01/21/2023 HEPAT IC/LI CODEY PANEL albumin 4.7 g/dL 3.0-4. 4 high Not Available [facility] (Lab) [address] [place], [address], 01/21/2023 21:05:28 01/22/20 23 01/21/2023 HEPAT IC/LI CODEY PANEL globulin 2.7 g/dL 2.6-4. 2 Not Available [facility] (Lab) [address] [place], [address], 01/21/2023 21:05:28 01/22/20 23 01/21/2023 HEPAT IC/LI CODEY PANEL A/G ratio 1.7 ratio 1.0-2. 0 Not Available [facility] (Lab) [address] [place], [address], 01/21/2023 21:05:28 01/22/20 23 01/21/2023 VITAM IN D 25-HY DROXY [id number] 51.7 NG/mL 30-100 Vitam in D Statu s: Defic ient: <20 ng/mL Insuf ficie nt: 20-29 ng/mL Suffi cient : 30-10 0 ng/mL Not Available [facility] (Lab) [address] [facility], [place], [address], 01/21/2023 21:13:35 03/02/20 24 03/03/2024 CBC WITH DIFFE RENTI AL/PL ATELE T WBC 2.7 x10e3 /uL 3.4-10 .8 below low normal Not Available [facility] ([facility]) [address] [facility], [place], [address], 03/03/2024 07:13:40 03/02/20 24 03/03/2024 CBC WITH DIFFE RENTI AL/PL ATELE T RBC 4.39 x10e6 /uL 3.77-5 .28 Not Available [facility] ([facility]) [address] [place], [address], 03/03/2024 07:13:40 03/02/20 24 03/03/2024 CBC WITH DIFFE RENTI AL/PL ATELE T hemoglobin 13.3 g/dL 11.1-1 5.9 Not Available [facility] ([facility]) [address] [place], [address], 03/03/2024 07:13:40 03/02/20 24 03/03/2024 CBC WITH DIFFE RENTI AL/PL ATELE T hematocrit 40.6 % 34.0-4 6.6 Not Available [facility] ([facility]) [address] [place], [address], 03/03/2024 07:13:40 03/02/20 24 03/03/2024 CBC WITH DIFFE RENTI AL/PL ATELE T MCV 93 fL 79-97 Not Available [facility] ([facility]) [address] [place], [address], 03/03/2024 07:13:40 03/02/20 24 03/03/2024 CBC WITH DIFFE RENTI AL/PL ATELE T MCH 30.3 pg 26.6-3 3.0 Not Available [facility] ([facility]) [address] [facility], [place], [address], 03/03/2024 07:13:40 03/02/20 24 03/03/2024 CBC WITH DIFFE RENTI AL/PL ATELE T MCHC 32.8 g/dL 31.5-3 5.7 Not Available [facility] ([facility]) [address] [facility], [place], [address], 03/03/2024 07:13:40 03/02/20 24 03/03/2024 CBC WITH DIFFE RENTI AL/PL ATELE T RDW 13.3 % 11.7-1 5.4 Not Available [facility] ([facility]) [address] [facility], [place], [address], 03/03/2024 07:13:40 03/02/20 24 03/03/2024 CBC WITH DIFFE RENTI AL/PL ATELE T platelets 212 x10e3 /uL 150-45 0 Not Available [facility] ([facility]) [address] [facility], [place], [address], 03/03/2024 07:13:40 03/02/20 24 03/03/2024 CBC WITH DIFFE RENTI AL/PL ATELE T neutrophils 79 % not estab. Not Available [facility] ([facility]) [address] [facility], [place], [address], 03/03/2024 07:13:40 03/02/20 24 03/03/2024 CBC WITH DIFFE RENTI AL/PL ATELE T lymphs 12 % not estab. Not Available [facility] ([facility]) [address] [place], [address], 03/03/2024 07:13:40 03/02/20 24 03/03/2024 CBC WITH DIFFE RENTI AL/PL ATELE T monocytes 7 % not estab. Not Available [facility] ([facility]) [address] [facility], [place], [address], 03/03/2024 07:13:40 03/02/20 24 03/03/2024 CBC WITH DIFFE RENTI AL/PL ATELE T eos 1 % not estab. Not Available [facility] ([facility]) [address] [facility], [place], [address], 03/03/2024 07:13:40 03/02/20 24 03/03/2024 CBC WITH DIFFE RENTI AL/PL ATELE T basos 1 % not estab. Not Available [facility] ([facility]) [address] [facility], [place], [address], 03/03/2024 07:13:40 03/02/20 24 03/03/2024 CBC WITH DIFFE RENTI AL/PL ATELE T immature cells UPPER STITCHER Not Available [facility] ([facility]) [address] [place], [address], 03/03/2024 07:13:40 03/02/20 24 03/03/2024 CBC WITH DIFFE RENTI AL/PL ATELE T neutrophils (absolute) 2.2 x10e3 /uL 1.4-7. 0 Not Available [facility] ([facility]) [address] [facility], [place], [address], 03/03/2024 07:13:40 03/02/20 24 03/03/2024 CBC WITH DIFFE RENTI AL/PL ATELE T lymphs (absolute) 0.3 x10e3 /uL 0.7-3. 1 below low normal Not Available [facility] ([facility]) [address] [place], [address], 03/03/2024 07:13:40 03/02/20 24 03/03/2024 CBC WITH DIFFE RENTI AL/PL ATELE T monocytes(ab solute) 0.2 x10e3 /uL 0.1-0. 9 Not Available [facility] ([facility]) [address] [facility], [place], [address], 03/03/2024 07:13:40 03/02/20 24 03/03/2024 CBC WITH DIFFE RENTI AL/PL ATELE T eos (absolute) 0.0 x10e3 /uL 0.0-0. 4 Not Available [facility] ([facility]) [address] [facility], [place], [address], 03/03/2024 07:13:40 03/02/20 24 03/03/2024 CBC WITH DIFFE RENTI AL/PL ATELE T baso (absolute) 0.0 x10e3 /uL 0.0-0. 2 Not Available [facility] ([facility]) [address] [facility], [place], [address], 03/03/2024 07:13:40 03/02/20 24 03/03/2024 CBC WITH DIFFE RENTI AL/PL ATELE T immature granulocytes 0 % not estab. Not Available [facility] ([facility]) [address] [facility], [place], [address], 03/03/2024 07:13:40 03/02/20 24 03/03/2024 CBC WITH DIFFE RENTI AL/PL ATELE T immature grans (abs) 0.0 x10e3 /uL 0.0-0. 1 Not Available [facility] ([facility]) [address] [facility], [place], [address], 03/03/2024 07:13:40 03/02/20 24 03/03/2024 CBC WITH DIFFE RENTI AL/PL ATELE T NRBC UPPER STITCHER Not Available [facility] ([facility]) [address] [facility], [place], [address], 03/03/2024 07:13:40 03/02/20 24 03/03/2024 CBC WITH DIFFE RENTI AL/PL ATELE T hematology comments: UPPER STITCHER Not Available [facility] ([facility]) [address] [facility] [place], [address], 03/03/2024 07:13:40 03/02/20 24 03/03/2024 BASIC METAB OLIC PANEL (8) glucose 82 mg/dL 70-99 Not Available [facility] ([facility]) [address] [facility] [place] [place], [address], 03/03/2024 07:13:42 03/02/20 24 03/03/2024 BASIC METAB OLIC PANEL (8) BUN 24 mg/dL 8-27 Not Available [facility] ([facility]) [address] [facility] [place] [place], [address], 03/03/2024 07:13:42 03/02/20 24 03/03/2024 BASIC METAB OLIC PANEL (8) creatinine 0.96 mg/dL 0.57-1 .00 Not Available [facility] ([facility]) [address] [place], [address], 03/03/2024 07:13:42 03/02/20 24 03/03/2024 BASIC METAB OLIC PANEL (8) eGFR 64 mL/mi n/1.7 3 >59 Not Available [facility] ([facility]) [address] [facility], [place], [address], 03/03/2024 07:13:42 03/02/20 24 03/03/2024 BASIC METAB OLIC PANEL (8) BUN/creatini ne ratio 25 12-28 Not Available [facility] ([facility]) [address] [place], [address], 03/03/2024 07:13:42 03/02/20 24 03/03/2024 BASIC METAB OLIC PANEL (8) sodium 141 mmol/ L 134-14 4 Not Available [facility] ([facility]) [address] [place], [address], 03/03/2024 07:13:42 03/02/20 24 03/03/2024 BASIC METAB OLIC PANEL (8) potassium 4.1 mmol/ L 3.5-5. 2 Not Available [facility] ([facility]) [address] [place], [address], 03/03/2024 07:13:42 03/02/20 24 03/03/2024 BASIC METAB OLIC PANEL (8) chloride 102 mmol/ L 96-106 Not Available [facility] ([facility]) [address] [place], [address], 03/03/2024 07:13:42 03/02/20 24 03/03/2024 BASIC METAB OLIC PANEL (8) carbon dioxide, total 25 mmol/ L 20-29 Not Available [facility] ([facility]) [address] [place], [address], 03/03/2024 07:13:42 03/02/20 24 03/03/2024 BASIC METAB OLIC PANEL (8) calcium 10.1 mg/dL 8.7-10 .3 Not Available [facility] ([facility]) [address] [place], [address], 03/03/2024 07:13:42 03/02/20 24 03/03/2024 LIPID PANEL cholesterol, total 256 mg/dL 100-19 9 above high normal Not Available [facility] ([facility]) [address] [place], [address], 03/03/2024 07:13:43 03/02/20 24 03/03/2024 LIPID PANEL triglyceride s 65 mg/dL 0-149 Not Available [facility] ([facility]) [address] [place], [address], 03/03/2024 07:13:43 03/02/20 24 03/03/2024 LIPID PANEL HDL cholesterol 99 mg/dL >39 Not Available [facility] ([facility]) [address] [place], [address], 03/03/2024 07:13:43 03/02/20 24 03/03/2024 LIPID PANEL VLDL cholesterol trace 10 mg/dL 5-40 Not Available [facility] ([facility]) [address] [place], [address], 03/03/2024 07:13:43 03/02/20 24 03/03/2024 LIPID PANEL LDL chol calc ([facility]) 147 mg/dL 0-99 above high normal Not Available [facility] ([facility]) [address] [facility], [place], [address], 03/03/2024 07:13:43 03/02/20 24 03/03/2024 LIPID PANEL comment: UPPER STITCHER Not Available [facility] ([facility]) [address] [place], [address], 03/03/2024 07:13:43 03/02/20 24 03/03/2024 HEPAT IC FUNCT ION PANEL (7) protein, total 6.8 g/dL 6.0-8. 5 Not Available [facility] ([facility]) [address] [place], [address], 03/03/2024 07:13:44 03/02/20 24 03/03/2024 HEPAT IC FUNCT ION PANEL (7) albumin 4.6 g/dL 3.9-4. 9 Not Available [facility] ([facility]) [address] [place], [address], 03/03/2024 07:13:44 03/02/20 24 03/03/2024 HEPAT IC FUNCT ION PANEL (7) bilirubin, total 0.5 mg/dL 0.0-1. 2 Not Available [facility] ([facility]) [address] [place], [address], 03/03/2024 07:13:44 03/02/20 24 03/03/2024 HEPAT IC FUNCT ION PANEL (7) bilirubin, direct 0.14 mg/dL 0.00-0 .40 Not Available [facility] ([facility]) [address] [place], [address], 03/03/2024 07:13:44 03/02/20 24 03/03/2024 HEPAT IC FUNCT ION PANEL (7) alkaline phosphatase 51 IU/L 44-121 Not Available [facility] ([facility]) [address] [place], [address], 03/03/2024 07:13:44 03/02/20 24 03/03/2024 HEPAT IC FUNCT ION PANEL (7) AST (SGOT) 29 IU/L 0-40 Not Available [facility] ([facility]) [address] [facility], [place], [address], 03/03/2024 07:13:44 03/02/20 24 03/03/2024 HEPAT IC FUNCT ION PANEL (7) ALT (SGPT) 25 IU/L 0-32 Not Available [facility] ([facility]) [address] [place], [address], 03/03/2024 07:13:44 03/02/20 24 03/03/2024 VITAM IN [...] um and D. Ronak mccain [place]: [facility] . 2. Ashwin rogel MF, Stanley grossman [place], Javon off-F errar i PABON, et al. Evalu ation , treat ment, and preve ntion of vitam in D defic iency : an Endoc rine Socie ty clini trace pract ice guide line. JCEM. 2010; 96(7) :1911 -30. Not Available [facility] ([facility]) [address] [facility], [place], [address], 03/03/2024 07:13:45 03/02/20 24 03/02/2024 AMBIG ABBRE V BMP8 DEFAU LT ambig abbrev BMP8 default Commen t A hand- writt en panel /prof ile was recei ivonne from your offic e. In accor dance with the [facility] Ambig uous Test Code [facility] y dated April 2003, we have compl [...] ciate your busin ess. Not Available [facility] ([facility]) [address] [facility], [place], [address], 03/03/2024 07:13:46 03/02/20 24 03/02/2024 AMBIG ABBRE [...] ciate your busin ess. Not Available [facility] ([facility]) [address] [facility], [place], [address], 03/03/2024 07:13:46 03/02/20 24 03/02/2024 AMBIG ABBRE [...] ciate your busin ess. Not Available [facility] ([facility]) [address] [facility], [place], [address], 03/03/2024 07:13:47 09/30/20 21 09/30/2021 MAMMO , scree teri, bilat eral No observ ation record ed. [id number] [facility] [address], [place], [address], 12/17/2022 03:14:59 02/07/20 23 12/16/2022 mammo gram, follo w up* No observ ation record ed. [email or web address] [facility] [address], [place], [address], 02/09/2023 08:01:50 02/13/20 23 02/12/2023 MAMMO , diagn ostic , digit al, unila teral No observ ation record ed. [address], [place], [address], 02/12/2023 18:11:32 02/13/20 23 02/12/2023 MAMMO , diagn ostic , digit al, unila teral No observ ation record ed. [address], [place], [address], 02/12/2023 18:11:11 02/13/20 23 02/12/2023 MAMMO , diagn ostic , digit al, unila teral No observ ation record ed. [email or web address] [facility] [address], [place], [address], 03/24/2023 11:07:27 04/02/20 23 04/02/2023 mammo gram, follo w up* No observ ation record ed. [email or web address] [address], [place], [address], 04/03/2023 11:09:18 04/02/20 23 04/02/2023 US, nubia t, bilat eral No observ ation record ed. [address], [place], [address], 04/15/2023 10:02:20 04/10/20 23 04/09/2023 DEXA No observ ation record ed. [email or web address] [facility] [address], [place], [address], 04/15/2023 11:03:04 06/06/20 23 05/29/2023 MRI, breas t, bilat eral, w/ contr ast No observ ation record ed. [address], [place], [address], 06/08/2023 08:49:16 07/09/20 23 07/09/2023 XR, alvin nce No observ ation record ed. [address], [place], [address], 02/29/2024 12:20:07 07/09/20 23 07/09/2023 senti dana node injec tion (PROC ) No observ ation record ed. [address] [facility], [place], [address], 02/29/2024 12:21:55 07/09/20 23 07/09/2023 XR, chest No observ ation record ed. [address] [address], [place], [address], 02/29/2024 12:22:18 10/30/19 24 10/29/2023 MAMMO , diagn ostic , digit al, unila teral No observ ation record ed. [address], [place], [address], 02/27/2024 07:36:17 12/08/19 24 12/07/2023 MRI, breas t, bilat eral, w/ contr ast No observ ation record ed. [address], [place], [address], 01/25/2024 08:12:21 12/31/19 24 12/31/2023 MAMMO , scree teri, digit al, bilat eral No observ ation record ed. [address] [facility] [address], [place], [address], 01/25/2024 08:11:51 Result Notes None recorded. Problems Name Problem SNOMED Code Status Onset Date Resolution Date Notes Provider Name and Address Organization Details Recorded Time Bilateral hearing loss 98688092 Active 2019 Not Available [facility] 02:57:02 Mammography abnormal 457863881 Active 2022 Lsi Donis MD [address] [facility], [place] [address], [place], [address] , [employer] 08:10:32 Vitamin D deficiency 79098521 Active 2022 Lis Donis MD [address] [facility], [place] [address], [place], [address] , [employer] 12:30:38 Hyperlipidemi a 83042185 Active 2022 Lis Donis MD [address] [facility], [place] [address], [place], [address] , [employer] 12:30:52 Leukopenia 09910626 Active 2022 Lis Donis MD [address] [facility], [place] [address], [place], [address] , [employer] 12:35:40 Osteopenia 269512260 Active 2022 dexa 03/2023 Lis Donis MD [address] [facility], [place] [address], [place], [address] , [employer] 10:03:48 Problem Notes None recorded. Procedures Surgical History Date Name Laterality Status Provider Name and Address Organization Details Recorded Time 01/25/20 24 Medicare Wellness CPT Code, subsequent completed Sherrie Downs RN [facility] 01/25/2024 08:02:36 01/22/20 23 Medicare Wellness CPT Code, subsequent completed Socorro Luo RN [facility] 01/20/2023 12:14:41 10/15/20 17 colonoscopy completed Not Available [facility] 12/18/19 02:46:50 ligation of bilateral fallopian tubes completed Not Available [facility] 12/17/2022 02:46:50 procedure on urinary bladder completed Not Available [facility] 12/17/2022 02:46:50 Imaging Results None recorded. Procedure [...] % 98 % 66 /min 97 [degF] 64477.0 8 g 102/68 mm[Hg] Not Available [facility] 3 02:53:49 Date Recorded Body mass index (BMI) Body height Oxygen saturation Oxygen saturation in Arterial blood by Pulse oximetry Heart rate Body temperature Body weight Systolic And Diastolic Provider Name and Address Organization Details Last Updated DateTime 2 19.7 kg/m2 167.64 cm 97 % 97 % 74 /min 97 [degF] 02130.2 7 g 100/70 mm[Hg] Not Available [facility] 3 02:53:49 Date Recorded Body weight Body mass index (BMI) Body height Body temperature Heart rate Oxygen saturation Oxygen saturation in Arterial blood by Pulse oximetry Systolic And Diastolic Provider Name and Address Organization Details Last Updated DateTime 3 75807.2 7 g 19.7 kg/m2 167.64 cm 97.6 [degF] 72 /min 98 % 98 % 120/68 mm[Hg] Cleopatra Fu CMA [facility] [employer] 3 12:07:29 Date Recorded Body temperature Provider Name a nd Address Organization Details Last Updated DateTime 01/25/2024 97.6 [degF] Lis Donis MD [address] [facility] [address], [place], [address], [facility] 01/25/2024 08:09:23 Date Recorded Body weight Heart rate Oxygen saturation Oxygen saturation in Arterial blood by Pulse oximetry Systolic And Diastolic Provider Name and Address Organization Details Last Updated DateTime 4 62050.5 3 g 96 /min 96 % 96 % 124/80 mm[Hg] Sherrie Downs RN [facility] 4 08:05:19 Social History Question Answer Notes LastModified by Organization Details LastModified Time Tobacco Smoking Status Never Smoker Camila Garrick [place] [employer] [facility] 01/21/2023 12:01:28 Do You Have An Advance Directive? Yes [email or web address] Information not available 01/21/2023 Are You Blind Or Do You Have Difficulty Seeing? No [email or web address] Information not available 01/21/2023 What Is Your Level Of Caffeine Consumption? Moderate [id number] Information not available 12/17/2022 How Much Tobacco Do You Chew? None [id number] Information not available 12/17/2022 In The 14 Days Before Symptom Onset, Have You Had Close Contact With A Laboratory-confi rmed COVID-19 While That Case Was Ill? No [email or web address] Information not available 01/21/2023 In The 14 Days Before Symptom Onset, Have You Had Close Contact With A Person Who Is Under Investigation For COVID-19 While That Person Was Ill? No Information not available 01/21/2023 Are You Deaf Or Do You Have Serious Difficulty Hearing? Yes Patient Wears Hearing Aids. [email or web address] Information not available 01/21/2023 What Type Of Diet Are You Following? REGULAR [id number] Information not available 12/17/2022 Which Illicit Or Recreational Drugs Have You Used? None [email or web address] Information not available 01/21/2023 Have There Been Any Changes To Your Family Or Social Situation? No [email or web address] Information not available 01/21/2023 Do You Use Insect Repellent Routinely? Yes [email or web address] Information not available 01/21/2023 Where Do You Live? [place]LevelHouse With Basement Information not available 01/21/2023 Presence Of Domestic [...] Carbon Monoxide Detectors In Your Home? Yes [email or web address] Information not available 01/21/2023 Do You Use Sunscreen Routinely? Yes [email or web address] Information not available 01/21/2023 Has Tobacco Cessation Counseling Been Provided? No [email or web address] Information not available 01/21/2023 Do You Have Difficulty Walking Or Climbing Stairs? No [email or web address] Information not available 01/21/2023 Do You Have Any Dietary Restrictions? No Information not available 01/21/2023 Sex: Unknown Functional Status Question Answer Note LastModified by Organizat ion Details LastModified Time Do you use any illicit or recreational drugs? No Information not available 01/21/2023 What is your level of alcohol consumption? Occasional Social drinking on holidays and vacations Information not available 01/20/2023 Do you or have you ever used smokeless tobacco? Never used smokeless tobacco [id number] Information not available 12/17/2022 Do you have transportation difficulties? No [email or web address] Information not available 01/21/2023 Are you able to walk? YESWOREST [email or web address] Information not available 01/21/2023 Do you have difficulty doing errands alone? No [email or web address] Information not available 01/21/2023 Are you able to care for yourself independently? Yes [email or web address] Information not available 01/21/2023 What is your occupation? retired [email or web address] Information not available 01/21/2023 Do you have difficulty dressing, bathing, grooming, or toileting? No Information not available 01/21/2023 Do you or have you ever used e-cigarettes or vape? Never used electronic cigarettes [email or web address] Information not available 01/21/2023 Mental Status Question Answer Note LastModified by Organization D etails LastModified Time Do you have difficulty concentrating, remembering or making decisions? No [email or web address] Information no t available 01/21/2023 Family History Relationship Description Onset Age of this Age Resolved Age Notes LastModified by Organization Details LastModified Time Mother Hypertensive disorder [id number] Not available 12/17/2022 02:46:58 Father Fibrosis of lung Pulmon clemente fibros is Not available 01/25/2024 08:19:18 Brother Malignant tumor of oral cavity [email or web address] Not available 05/2024 08:02:12 Medical History Condition Response BLINDNESS N RHEUMATIC FEVER N BLADDER PROBLEMS N KIDNEY STONES N OTHER # 1 N POLIO N LUNG DISEASE/DISORDER N RADIATION / CHEMOTHERAPY N COPD N Other # 2 N BLOOD DISEASES N SURGERY N EAR OR HEARING PROBLEMS N MUMPS N DEPRESSION (INCLUDING POST ) N FEMALE PROBLEMS / INFECTIONS N BOWEL PROBLEMS N STROKE/TIA N THYROID DISEASE N ULCERS [...] HAVE YOU BEEN HOSPITALIZED OR SEEN IN [facility] IN THE PAST YEAR ? N ATHEROSCLEROSIS [...] mcg/0.3 mL dose 1 completed Not Available [facility] 12/17/2022 03:13:57 COVID-19, mRNA, LNP-S, PF, 30 mcg/0.3 mL dose 1 completed Not Available [facility] 12/17/2022 03:13:58 Pneumococcal conjugate PCV 13 9 completed Not Available [facility] 12/17/2022 03:13:58 pneumococcal polysaccharide PPV23 0 completed Not Available [facility] 12/17/2022 03:13:58 Past Encounters Encounter ID Performer Location Encounter Start Date Encounter Closed Date Diagnosis/Indication Diagnosis SNOMED-CT Code Diagnosis ICD10 Code Diagnosis Note [id number] Lis Donis MD [facility] Primary [place] [address] [facility] [address] [place] [address] 12/27/2020 00:00:00 01/15/2021 16:24:06 [id number] Lis Donis MD [facility] Primary Care [place] [address] [facility] [address] [place] [address] 12/30/2021 00:00:00 12/30/2021 09:08:23 [id number] Lis Donis MD [facility] Primary Care [place] [address] [place] [address] 01/21/2023 12:00:20 01/21/2023 12:49:06 Adult health examination 804695198 Z00.00 Z13.1 DEXA ordered Screening for disorder 774871570 Z13.9 Postmenopausal state 764 10791 Z78.0 Vitamin D deficiency 347 22831 E55.9 Hyperlipidemia 65933402 E78.5 Z79.298 [id number] Lis Donis MD [facility] Primary Care [place] [address] [place] [address] 01/25/2024 08:00:05 01/25/2024 08:32:29 Adult health examination 246214342 Z00.00 Z13.1 DEXA repeat due 04/12Mammog mt repeat due 01/10Prevna r 13 done 2019Pneumo vax 23 done 2019Shingr ix series 11/10 and 01/08Contin ue flu vaccine yearlyCovi d booster per cdc guidelines Recommend prevnar 20Check fasting labsColono scopy 2017 repeat 2026 Screening for disorder 790764681 Z13.9 Vitamin D deficiency 347 25132 E55.9 Hyperlipidemia 15021221 E78.5 Z79.899 Osteopenia 330930409 M85 .80 continue daily walkingcal cium + D bidrepeat dexa 2024 Screening for malignant neoplasm of breast 688106506 Z12.39 left breastlobu lar carcinomas /p excision [...] 1 [employer] (MEDICARE REPLACEMENT/ ADVANTAGE - HMO) [id number] Aggie I Suzi [id number] Aggie I Suzi 01/25/2024 1 [employer] (MEDICARE REPLACEMENT/ ADVANTAGE - PPO) Aggie Suzi [id number] Aggie Archer OBGyn Episode No OBEpisode recorded.
== END 2025-05-15 13:49 | disposition home or self-care (01) ==
LOC: ANHIMG 13:50
PROVIDERS: PCP Family Medicine; Visit Provider Surgery
DX: R92.8 Other abnormal and inconclusive findings on diagnostic imaging of breast (principal); R92.1 Mammographic calcification found on diagnostic imaging of breast; C50.912 Malignant neoplasm of unspecified site of left female breast
CPT/HCPCS: 77061; 77065; G0279

== ENCOUNTER 2025-07-04 00:36 | Day surgery (SDC) | payer MEDICARE, SELFPAY ==
--- OUTSIDE RECORDS SUMMARY | 2008-12-13 10:15 | XMS_ITS | Continuity of Care Document ---
Author Organization [facility] Address [address] [place] [address] [address] [place] [address] Phone Care Team Providers Care Tyre Retreader Name Role Phone Pablo Naqvi Unavailable Unavailable Procedures Procedure Date Eye Exam & Treatment Refraction Eye Exam & Treatment Refraction Advance Directives Directive Yes / No Effective Date File Name No Information Encounters Encounter Description Practice Location Reason(s) For Visit Diagnoses Date Provider Providers Copied on Encounter [facility], [address] [place] [address] [address], [place], [place], [id number], tel:[phone] [facility] [place] No Information Nov-2 200 9 Driss Shah. [address], [address], [place], [place], [facility], . tel:[phone] [facility], [address] [place] [address] [address], [place], [place], [id number], tel:[phone] [facility] [place] No Information b-0 [id number] 7 Driss Shah. [address] [facility] [address], [address], [place], [address], [place]. tel:[phone] Family History Family Member Type Diagnosis Age At Onset No Information Payers Payer name Insurance type Covered libertarian ID Linnette espinoza(s) [employer] SOI CI [id number] Social History Type Description Quantity Date Captured Comments Sex Female Smoking Status No Information Chief Complaint And Reason For Visit No Information Reason For Referral Reason For Referral No Information History Of Present Illness Encounter Date Complaint History Of Prese nt Illness No Information Functional Status Date Functional Assessmen t No Information Instructions Date Instruction Additional Infor mation No Information Assessments Type Assessment Date No Information Patient Care Teams Name Effective Dates (start - stop) Status Members No Information
[2025-06-23 12:33] VITALS: BMI 18.1
--- NOTE | 2025-06-23 12:43 | PC.NURSE ---
Report to the Outpatient Waiting Room, entrance under the green pavilion located off [facility], at time __07:00am on date _07/04/25 . Planned Procedure Time: ____09:00am____.? Time changes happen often and if your time is changed the preop area will call you the afternoon before. - You and your visitor will be asked to self-screen and do not enter if you have any COVID symptoms. Please call surgeon if you need to reschedule. - A mask is optional within the hospital at this time. Patients may have clear liquids (water, carbonated beverages, clear teas, apple juice) until 3 hours prior to surgery with a maximum of 20 ounces. - No food from midnight until time of surgery and no smoking, or chewing tobacco (or any form of nicotine). No chewing gum, candy or mints. (0600am) Take only the following medications with a SIP of water on the morning of surgery: None DO NOT STOP ANY OF YOUR OTHER PRESCRIPTION MEDICATIONS PRIOR TO SURGERY EXCEPT THE FOLLOWING Hold all vitamins and supplements for 3 days per anesthesiologist. Medications to discontinue per physician NONE Date to take last dose____NONE Please no make-up, nail belgian, hairspray, perfume, deodorant, or body powder the day of surgery.? No jewelry (including any body piercings) or valuables the day of surgery, leave them at home.? Please take a shower or bath the night before, or the morning of, surgery with an antibacterial soap.? SHAZIAICLEZULYE scrub per Dr Mello. Wear comfortable, loose fitting clothing.? Overnight bag, good shoes, cell phone charging plug placer/ - Jewelry must be removed prior to entering the operating room.? Rings and piercings that are not removed may be cut off. - The hospital will not accept responsibility for valuables.? - Please leave all valuables, including medications, at home the day of surgery. If you are going home after surgery, a licensed commercial relief driver must drive you home.? - NO public transportation without another adult if you receive anesthesia. - We recommend that an adult stay with you for 24 hours following discharge. - We also recommend that you do not drive, make important decision, drink alcoholic beverages, or take any drugs that were not prescribed by your health care provider for at least 24 hours after your discharge time. Follow any additional instructions given to you from your surgeon. Telephone instructions given to __Patient and asked if any additional questions and then verbalized understanding. Patient advised to call surgeon office or pre surgery nurse liaison [phone] if any additional questions.
[2025-07-04] VITALS (10 sets, daily range): BP systolic 119–136; BP diastolic 66–86; PULSE 50–72; RESP 8–16; TEMP 36.1–36.8; O2SAT 97–100; BMI 18.3
--- NOTE | ~2025-07-04 | NM_ITS ---
EXAMINATION: NM sentinel node inject only DATE: 07/04/2025 11:51 INDICATION: Left breast cancer TECHNIQUE: 3.94 mCi Tc-99m filtered sulfur colloid was injected at the left breast by Dr. Mello. Radiologist was not present for the injection and no images were obtained. IMPRESSION: 1. Left breast sentinel lymph node radiopharmaceutical injection without imaging. Reviewed, dictated and finalized at location A. IMPRESSION: 1. Left breast sentinel lymph node radiopharmaceutical injection without imagi ng.
--- OUTSIDE RECORDS SUMMARY | 2025-07-04 00:39 | XMS_ITS | Clinical Summary ---
Author Organization [facility] [place] Address [address] [place] [address] Care Team Providers Care Supervisor Pleating Name Role Phone Raheem Gibson MD Primary Care Provider [phone] Allergies No known active allergies Medications Glucosamine [...] External Device Data STL ABSTRACTION Provider, Abstract from Last 3 Months Immunizations Immunization Administration Dates Next Due (PFIZER)(12 YR UP) COVID-19 VACCINE - EMERGENCY USE AUTHORIZATION, MRNA, [id number](PF) 30 MCG/0.3 ML IM SUSP 12/19/2020,11/21/2020 Family [...] Description 07/14/2025 12:45 PM CDT Office Visit [facility] Oncology and Hematology - [place] [address] [place] [phone] Deuce Mas MD [address] [facility] [address] [address] [place] [phone] Health Maintenance Due Date Last Done Comments DTAP/TDAP/TD VACCINES (1 - Tdap) 1972 FIT-DNA Q 3 years 1998 FIT/FOBT Q 1 year 1998 Flex Sig/CT Colonography Q 5 years 1998 ZOSTER VACCINE (1 of 2) 2003 OSTEOPOROSIS SCREENING 2018 BREAST CANCER SCREENING 10/29/2024 10/29/19 24, 10/29/2023, 02/12/2023 INFLUENZA VACCINE (#1) 2025 COVID-19 Vaccine ( season) 06/19/202512/2020, 11/21/2020 COLORECTAL SCREENING 10/15/2027 10/15/2017, 10/14/20 17 Colorectal Cancer Screening 10/15/2027 RSV VACCINE (60+ or ) (1 - 1-dose 75+ series) 2028 PNEUMOCOCCAL VACCINE 50+ YEARS Completed 12/29/2019 , 01/04/2019 Procedures Procedure Name Priority Date/Time Associated Diagnosis Comments MAMMO DIAGNOSTIC UNI RIGHT W OR WO CAD Routine 10/29/2023 11:20 AM CALCULATING MACHINE OPERATOR from Last 3 Months or Most Recently Relevant to Health Maintenance Results * MAMMO DIAGNOSTIC UNI RIGHT W OR WO CAD (10/29/2023 11:20 AM CALCULATING MACHINE OPERATOR) Anatomical Region Laterality Modality Breast Right Mammography Deuce Mas MD MAMMO ORDERABLES Final Result from Last 3 Months or Most Recently Relevant to Health Maintenance Insurance [facility] Care Teams Supervisor Pleating Relationship Specialty Start Date End Date Raheem Gibson MD [address] [address] [place] [id number] PCP - General Family Practice 11/01/24
--- NOTE | 2025-07-04 07:15 | WPDHPUPDATE1 ---
History and Physical Update Update Date/Time: 07/04/25 07:15 - Left total mastectomy, prophylactic right total mastectomy, left sentinel lymph node biopsy, injection of Lymphoseek and methylene blue for dual tracing. History and Physical has been reviewed, including an updated exam of the patient. There are NO changes in the patient's condition. Risks, benefits, and alternatives have been discussed and questions answered. Patient agrees to proceed with procedure.
[2025-07-04] MEDS: ACETAMINOPHEN 500 MG TABLET 1000 MG PO (08:00)
[2025-07-04] MEDS: LACTATED RINGERS 1,000 ML 30 ML IV CONT ×2 (08:30→13:01)
--- NOTE | 2025-07-04 09:08 | WPDANESEPPF ---
Anes - Initial Pre Proc Eval Procedure: Operation Date: 07/04/25 09:00 Proposed Procedures p Left Total Mastectomy, Prophylactic Right Total Mastectomy, Left [place] Lymph Node Biopsy with Injection of Lymphoseek and Methylene Blue for Dual Tracing - Tessa Mello MD Date/Time: 07/04/25 09:08 Surgeon: Tessa Mello MD Pre Op Diagnosis: malignant neoplasm of left breast Patient Data Age: 69 Gender: F Height: 1.68 m Weight: 51.6 kg Last Vital Signs Temp 36.1 C L 07/04/25 08:40 Pulse 72 07/04/25 08:40 BP 124/80 07/04/25 08:40 Pulse Ox 100 07/04/25 08:40 O2 Del Method Room Air 07/04/25 08:40 Allergies Allergy/AdvReac Type Severity Reaction Status Date / Time No Known Allergies Allergy Verified 06/23/25 12:31 Home Medications ?Medication ?Instructions ?Recorded ?Confirmed ?Type calcium 600 mg (as 1 cap PO DAILY 03/17/23 06/23/25 History carbonate)-vitamin D3 10 mcg (400 unit) capsule multivitamin (Daily Multi-Vitamin 1 tablet PO DAILY 03/17/23 06/23/25 History tablet) biotin 10,000 mcg chewable tablet 10,000 mcg PO DAILY 07/07/23 06/23/25 History (Hair, Skin and Nails (biotin)) potassium 99 mg tablet 99 mg PO DAILY 07/07/23 06/23/25 History cyanocobalamin (vitamin B-12) 1,000 mcg PO DAILY 01/11/24 06/23/25 History 1,000 mcg tablet cinnamon bark 500 mg capsule 1,000 mg PO BID 05/15/25 06/23/25 History (Cinnamon) omega-3 fatty acids 1,000 mg 1,000 mg PO BID 05/15/25 06/23/25 History capsule turmeric 400 mg capsule 500 mg PO DAILY 05/15/25 06/23/25 History antiarthritic combination no.2 900 1,500 mg PO DAILY 06/20/25 06/23/25 History mg tablet (glucosamine-chondroitin) estrella root extract 15 mg chewable 550 mg PO DAILY 06/20/25 06/23/25 History tablet magnesium 500 tablet PO .twice daily 06/20/25 06/23/25 History Laboratory Tests 07/04/25 08:23 Blood Type A Positive Antibody Screen Pending Patient hx anesthesia problems: none Family hx anesthesia problems: none Results Review: All pre-operative results and documents have been reviewed as part of the pre-operative evaluation. [facility] Past Medical History Medical History Osteopenia after menopause (04/09/23) DEXA scan on 04/09/2023 with T-score -1.5 at the spine, -1.7 left hip, -1.2 right hip. Legally blind in right eye, as defined in [place] Decreased hearing of both ears hearing aids Malignant neoplasm of upper-outer quadrant of left female breast Triple negative breast cancer Breast cancer, left Normal weight with body mass index (BMI) 18.5 to 24.9 Surgical History Surgical History (Updated 07/04/25 @ 09:09 by Cong Justice MD) History of sentinel lymph node dissection History of removal of Port-a-Cath History of bladder surgery bladder tie up Hx of dilation and curettage History of tubal ligation Family History Family History Sibling Alcoholism Mother Hypertension Social History Social History Smoking status: Never smoker Second hand tobacco smoke exposure: No Alcohol intake: current Alcohol use details: 1 per every other month Substance use: never Substance use type: does not use Do You Feel Safe in your Home?: Yes Lack of Transportation: No Lack of Food: Never True Current Housing: I Have Housing Concerned About Future Housing: No Difficulty Paying Gas/Electric Bills: No Difficulty Paying for Meds: No Currently Unemployed: No Education: Master's Degree or Higher Difficulty w/ Childcare or Family Care: No Living arrangements: with family Additional living arrangements comments: Spiritual care concerns: No Anes - Eval Final PreProcedure Day of Procedure 07/04/25 09:08 Patient weight: thin Heart: regular rate and rhythm Lungs: clear to auscultation Airway: Mallampati scale class II Neurological: alert and oriented Last oral intake: >/= 8 hours ASA classification: III Emergent: no Anesthetic plan: proceed Anesthesia type and monitoring: general ETT and standard monitoring Results Review: All pre-operative results and documents have been reviewed as part of the pre-operative evaluation. Informed Consent: The patient's anesthetic plan and its attendant risks and benefits were discussed with the patient/family/POA. Questions were solicited and answers provided to the satisfaction of the patient/family/POA.
[2025-07-04] MEDS: ceFAZolin 2 GM in SODIUM CHLORIDE 0.9% IV 50 ML 100 ML IVPB (10:09)
[2025-07-04] MEDS: BUPIVACAINE/EPINEPHRINE 0.5% 30 ML VIAL INFILTRATE (10:37)
--- NOTE | 2025-07-04 11:31 | S_PTH ---
PATIENT: Aggie Archer I LOC: [facility] U#:[id number] AGE/SX: 69/F ROOM: RE07/04/[address]: Tessa Mello MD : 1955 BED: DIS: 07/05/2025 SPEC #: [id number] RECD: 07/04/25 11:40 STATUS: MARY REQ #: [id number] GILBERT: 07/04/25 11:[address]: Tessa Mello DEPT: [facility] Surgical RECD BY: Concha Kwong MLT, ([facility]) ENTERED: 07/04/25 11:41 SP TYPE: Surgical OTHR DR: Raheem Gibson MD Tissues: A - Breast Mastectomy B - Breast Mastectomy Procedures: P63 Hematoxylin and Eosin Stain Estrogen Receptor Immuno E-Cadherin Gross and Microscopic Level 5 CK 5
--- NOTE | 2025-07-04 12:20 | SUR.OPER ---
Right breast Mastectomy sent with LEAH Rajan and received in Pathology by
--- NOTE | 2025-07-04 12:45 | W.PM.PROC2 ---
Procedure Note - Detailed Date of Procedure 07/04/25 Pre-op Diagnosis malignant neoplasm of left breast Post-op Diagnosis Same Procedure Performed 1. Left total mastectomy 2. Prophylactic right total mastectomy 3. Attempted left sentinel lymph node biopsy 4. Injection of methylene blue and lymphoseek for dual tracing 5. Application skin substitute graft to right and left mastectomy wound (17cm x17cm2) Surgeon Tessa Mello MD Anesthesia General Description of Procedure Patient was identified in the preoperative holding area where I performed Lymphoseek injection for sentinel lymph node mapping. Patient was then brought to the operating room, she was placed supine operating table sequential compression devices were applied. General anesthesia was induced without difficulty. I injected diluted methylene blue for dual tracing in subdermal plane in periareolar area. Bilateral chest and left axillary areas were prepped draped in sterile fashion.? The Neoprobe was used to scan the left axilla and a small incision was made overlying this area that was incorporated into the mastectomy incision laterally. Dissection was carried down through the subcutaneous tissue and the clavipectoral fascia was encountered and opened. Patient has significant scar tissue and fibrosis in the axilla due to previous radiation and I was unable to dissect into the tissue or identify any tissue plane or structures. I was able to find an area of high radio activity which was right against the chest wall but since I was unable to dissect or identify any structures such as the long thoracic and especially the thoracodorsal nerve, I decided to abort the sentinel lymph node biopsy. The cavity was irrigated with saline hemostasis was assured. Attention was then turned to the left breast. An elliptical incision encompassing the nipple areolar complex was made and dissection was carried down through the subcutaneous tissue and continued through the thin areolar tissue plane between the subcutaneous tissue with the breast tissue superiorly to the inferior border of the clavicle.? We then continued our dissection medially to the lateral aspect of the sternum, inferiorly to the inframammary fold and laterally to latissimus.? Once this was performed the breast tissue along with the pectoralis fascia was dissected off the pectoralis muscle posteriorly.? The mastectomy specimen was then marked short stitch superior long stitch lateral stitch lateral for orientation.? The specimen was then sent to pathology as a fresh specimen.? Hemostasis was assured.? Attention was then turned to the right breast. An elliptical incision was again made around the right nipple areola complex, dissection was carried down to the subcutaneous tissue until the thin areolar tissue plane was encountered.? This was then dissected superiorly to the inferior aspect of the clavicle, medially to the lateral aspect of the sternum, laterally to the latissimus dorsi, and inferiorly to the inframammary fold.? The breast along with the pectoralis fascia was then dissected off the pectoralis muscle and the specimen was oriented with a short stitch superiorly and long stitch laterally, and sent to pathology as the fresh specimen.? Hemostasis was assured.? On both mastectomy incisions a 7 [place] flat drain was placed above the pectoralis muscle. Given that the patient had previos recent radiation to the left chest wall, I used Micromatrix flex to optimize the healing ability of the wound to hopefully decrease the risk of wound healing issues such as dehiscence. Micromatrix flex was sprinkled throughout the mastectomy cavity as a powder against the muscle. The incision was then closed with interrupted 3-0 Vicryl followed by 4-0 Monocryl in a subcuticular fashion. Dermabond was applied followed by fluffs and a binder. She was awoken from anesthesia and taken to the recovery in stable condition. All needles, instruments, sponge counts were correct as reported by the operating room staff. Patient tolerated the procedure well with no immediate complications. Estimated Blood Loss 20 Drains Yes Pathology Yes Complications No immediate complications Condition Stable Disposition PACU [facility] Billing Surgery - Charge Forward: Surgery Billing (CPT 19570, [id number] - R [id number] - [id number], [id number], [id number], [id number])
--- NOTE | 2025-07-04 14:21 | PC.NURSE ---
This patient, Aggie Archer, was received from PACU on 07/04/25 at 1421. Patient/family oriented to unit policies and routines.
[2025-07-04] MEDS: LACTATED RINGERS 1,000 ML 100 ML IV CONT (15:06)
[2025-07-04] MEDS: OMEGA 3 POLYUNSAT FATTY ACIDS 1 GM CAP PO (18:42)
[2025-07-04] MEDS: HYDROcodone/acetaminophen (*CRX) 5-325 MG TABLET 1 TAB PO (18:42)
[2025-07-04] MEDS: DOCUSATE SODIUM 100 MG CAPSULE PO (18:42)
[2025-07-04] MEDS: MAGNESIUM OXIDE 400 MG TABLET PO (21:25)
[2025-07-05] MEDS: HYDROcodone/acetaminophen (*CRX) 5-325 MG TABLET 1 TAB PO (00:58)
--- NOTE | 2025-07-05 07:23 | P.DS_ITS ---
DS: Admitting Diagnosis Discharge Date Left breast cancer, invasive ductal carcinoma and DCIS Admitting Diagnosis Left breast cancer, invasive ductal carcinoma and DCIS Previous history of left breast invasive lobular carcinoma, s/p lumpectomy, adjuvant chemotherapy and radiation DS: Discharge Diagnosis Discharge Diagnosis (1) Invasive ductal carcinoma of left breast: Code(s): C50.912 - Malignant neoplasm of unspecified site of left female breast Status: Acute (2) Neoplasm of left breast, primary tumor staging category Tis: ductal carc inoma in situ (DCIS): Code(s): D05.12 - Intraductal carcinoma in situ of left breast Status: Acute Plan s/p bilateral total mastectomy - follow up in 1 week for post-op visit - bring drain output record DS: Summary Hospital Course Hospital Course: patient was admitted post-op overnight for observation. Her post-op course was unremarkable. She is voiding, tolerating a regular diet, and pain is well controlled with PO pain meds. She is ambulating unassisted. She was deemed ready for discharge on POD1. Time spent discussing smoking cessation with patient: 3 to 10 minutes Status at Discharge Functional status at discharge: independent ambulation Overall status at discharge: patient is back to baseline Time Spent with Patient Time attestation: Total time spent providing and/or coordinating discharge services: Time spent: Less than 30 minutes Exam Const: General: comfortable and no acute distress HENMT: Mouth: Yes moist mucous membranes Resp: Effort & Inspection: normal respiratory effort Cardio: Rate: regular rate GI: GI Palp: Yes Soft to palpation Skin: General skin exam: normal color Other: bilateral mastectomy incisions are well approximated, very small area of dusky skin on the left lateral side along the incision. No bleeding or drainage noted. No ecchymosis. Neuro: General: gait normal Extrem: General: normal to inspection Psych: Mental Status: mental status grossly normal DS: Data Data Completed and Pending Pending studies at discharge: Pending at discharge 07/04/25 11:31 Surgical [PTH] Routine Labs on day of discharge: Labs from last 24 hours 07/04/25 08:23 Blood Type A Positive Antibody Screen Negative Discharge Plan Discharge Attending physician on discharge: Tessa Mello Discharging Clinician: Tessa Mello Patient Disposition: Home Activity: no shower and other - see discharge instructions Diet: as tolerated Wound Care Instructions: follow printed instructions Discharge Instructions: Tessa Mello MD [facility] [address] [place], [place] [id number] Post-operative Discharge Instructions Diet: As tolerated Activity: Avoid overhead movements with the affected arm/side for 2 weeks. You should walk at least 3-4 times daily, but do not exert yourself. Ok to go up and down stairs. Dressing: Wear the compression bandage or compression bra at all times, including at night while sleeping. Ok to remove for shower. Patients with Drain: No showers or baths while drain is in place. Ok for sponge baths. Drain Care: Strip the drain tubing at least three time a day, and empty drain as needed. Record the drain output and bring record to your follow up visit. Mastectomy patients WITH Drains ONLY: Return to the office in 1 week for post- op follow up visit. Call the office with any questions or concerns in the meantime. If after hours, please call the machine operator hop worker to be connected to the surgeon. If you have an emergency , call 911 or go to the nearest ER. Patient Instructions: Antibiotic Form Patient Language: Serbian Stand Alone Forms: General Discharge Information Follow-up/Referrals: Tessa Mello MD [Physician, Breast Surgery] Referral Note: in 1 week Discharge Medications: New hydrocodone-acetaminophen 5-325 mg tablet 1 tablet PO Q6H PRN (Reason: pain) Qty: 20 0RF Continued calcium carbonate-vitamin D3 600 mg-10 mcg (400 unit) capsule 1 cap PO DAILY multivitamin [Daily Multi-Vitamin] Tablet 1 tablet PO DAILY cinnamon bark [Cinnamon] 500 mg capsule 1,000 mg PO BID turmeric 400 mg capsule 500 mg PO DAILY glucosamine-chondroitin 900 mg tablet 1,500 mg PO DAILY estrella root extract 15 mg tablet,chewable 550 mg PO DAILY magnesium Tablet 500 tablet PO .twice daily omega-3 fatty acids 1,000 mg capsule 1,000 mg PO BID potassium 99 mg Tablet 99 mg PO DAILY Hair, Skin and Nails (biotin) 10,000 mcg Tablet,Chewable 10,000 mcg PO DAILY cyanocobalamin (vitamin B-12) 1,000 mcg Tablet 1,000 mcg PO DAILY Date of admission: 07/04/25 13:01 Primary Care Provider: Raheem Gibson Admitting Provider: Tessa Mello Attending physician on admission: Tessa Mello Condition: Stable
[2025-07-05 07:46] VITALS: BP 101/70; PULSE 62; RESP 12; TEMP 36.9; O2SAT 99
--- NOTE | 2025-07-05 08:49 | PC.NURSE ---
On 07/05/25, the student, David Mchugh, provided care and completed [facility] documentation on this patient. I have reviewed the student's documentation and agree with the findings.
[2025-07-05] MEDS: OMEGA 3 POLYUNSAT FATTY ACIDS 1 GM CAP PO (09:47)
[2025-07-05] MEDS: DOCUSATE SODIUM 100 MG CAPSULE PO (09:47)
[2025-07-05] MEDS: MAGNESIUM OXIDE 400 MG TABLET PO (09:47)
[2025-07-05] MEDS: CALCIUM/VITAMIN D 500 MG/5 MCG (200 I.U.) TABLET PO (09:47)
--- NOTE | 2025-07-05 13:45 | WPDANESPN ---
Anes - Prog Note Post-Op Date/Time: 07/05/25 13:45 Cardiovascular status: normal Respiratory status: normal Airway patency: baseline Mental status: baseline Post-Op hydration status: normal Vital Signs: Last Vital Signs Temp 36.9 C 07/05/25 07:46 Pulse 62 07/05/25 07:46 Resp 12 07/05/25 07:46 BP 101/70 07/05/25 07:46 Pulse Ox 99 07/05/25 07:46 O2 Del Method Room Air 07/04/25 14:10 O2 Flow Rate 8 07/04/25 13:15 Pain Score (VAS): 0 I/O: Intake & Output 07/04/25 07/05/25 07/05/25 23:59 07:59 15:59 Intake Total 300 651 Output Total 882 032 430 Balance -585 206 430 Patient Feedback: Patient satisfied with anesthetic care.
== END 2025-07-05 10:20 | disposition home or self-care (01) ==
LOC: ANHSURGERY 08:19 → ANHOB2 07-05 07:21
PROVIDERS: PCP Family Medicine; Visit Provider Surgery
PROC: (CPT 19303; principal; 2025-07-04 09:00)
DX: C50.212 Malignant neoplasm of upper-inner quadrant of left female breast (principal); Z17.0 Estrogen receptor positive status [ER+]; Z17.22 Progesterone receptor negative status; Z17.31 Human epidermal growth factor receptor 2 positive status
CPT/HCPCS: 19303; 38525; 38900; 15777 ×2; 36415; 38792; 86850; 86900; 86901; 88307; 88342; J0690; A9270; A9520; J1100; J1171; J1596; J2003; J2371; J2405; J2704; J3010; J7120; Q4118; Q9968